=== PATIENT | female | born 1980 | race Caucasian/White ===

== ENCOUNTER 2018-09-03 19:29 | Emergency (ER) | payer OTHER ==
[2018-09-03 19:55] VITALS: RESP 20
[2018-09-03] MEDS ORDERED: IPRATROPIUM-ALBUTEROL 3 ML NEB INHALATION STA (20:36)
[2018-09-03] MEDS ORDERED: SODIUM CHLORIDE 0.9% 1,000 ML IV STA (20:36)
[2018-09-03 21:04] LABS: Anisocytosis Slight; Basophils # (A) 0.1 k/uL (0-0.2); Basophils % (A) 1 %; Eosinophils # (A) 0.3 k/uL (0-0.7); Eosinophils % (A) 3 %; HCT 40.1 % (34.0-46.0); HGB 12.3 gm/dL (11.4-16.0); Hypochromasia Moderate; Lymphocytes # (A) 2.1 k/uL (1.0-4.8); Lymphocytes % (A) 21 %; MCHC 30.7 g/dL (31.0-37.0); MCV 71.8 fL (80.0-100.0); Mean Platelet Volume 7.4; Microcytosis Moderate; Monocytes # (A) 0.6 k/uL (0-1.0); Monocytes % (A) 6 %; Neutrophils # (A) 6.6 k/uL (1.3-7.7); Neutrophils % (A) 68 %; Platelet Count 215 k/uL (150-450); RBC 5.58 m/uL (3.80-5.40); RDW 16.4 % (11.5-15.5); WBC 9.7 k/uL (3.8-10.6)
[2018-09-03 21:17] LABS: Albumin 4.5 g/dL (3.5-5.0); Calcium 9.6 mg/dL (8.4-10.2); Potassium 4.4 mmol/L (3.5-5.1); Total Bilirubin 0.8 mg/dL (0.2-1.3)
--- NOTE | 2018-09-03 21:42 | XR ---
EXAMINATION TYPE: XR chest 2V DATE OF EXAM: 09/03/2018 COMPARISON: NONE HISTORY: Cough TECHNIQUE: Frontal and lateral views of the chest are obtained. FINDINGS: Heart and mediastinum are normal. Lungs are clear of infiltrate. There is no heart failure . There is focal pleural reaction or thickening at the lateral right lung base. IMPRESSION: Mild pleural reaction at the lateral right lung base. Normal heart.
[2018-09-03 22:32] VITALS: BP 158/97; PULSE 89; TEMP 98.3
--- NOTE | 2018-09-03 22:35 | ED ---
General Adult HPI - General Chief complaint: Upper Respiratory Infection Stated complaint: Coughing and wheezing Source: patient, RN notes reviewed, old records reviewed Mode of arrival: ambulatory Limitations: no limitations - History of Present Illness Initial comments: 37-year-old female patient with past history of hypertension, pulmonary embolism approximate 9 years ago not currently on anticoagulation due to recommendation from heme/onc presents to ED with 4 days of nonproductive cough, sinus congestion. Patient does state that she has had some shortness of breath after coughing. States that this does not feel like when she had pulmonary embolism in past. Patient has not been previously evaluated for this problem. Patient denies other complaints. Patient denies chest pain, abdominal pain, nausea vomiting diarrhea, fever chills. Patient states that she is not and she is not sexually active. Systemic: Pt denies fatigue, myalgia, fever/chills, rash. Pt denies weakness, night sweats, weight loss. Neuro: Pt denies headache, visual disturbances, syncope or pre-syncope. HEENT: Pt denies ocular discharge or irritation, otalgia, rhinorrhea, pharyngitis or notable lymphadenopathy. Cardiopulmonary: Pt denies chest pain, heart palpitations, dyspnea on exertion. Abdominal/GI: Pt denies abdominal pain, n/v/d. : Pt denies dysuria, burning w/ urination, frequency/urgency. Denies new onset urinary or bowel incontinence. MSK: Pt denies myalgia, loss of strength or function in extremities. Neuro: Pt denies new onset weakness, paresthesias. - Related Data Home Medications Medication Instructions Recorded Confirmed Labetalol HCl [Trandate] 300 mg PO BID 09/03/18 09/03/18 Previous Rx's Medication Instructions Recorded Amoxicillin/Potassium Clav 1 each PO Q12HR #20 tab 09/03/18 [Augmentin 875-125 Tablet] Benzonatate [Tessalon Perles] 100 mg PO TID PRN #20 capsule 09/03/18 Fluticasone Propionate [Flonase 1 - 2 spray EA NOSTRIL DAILY 5 09/03/18 Allergy Relief] Days ml Allergies Allergy/AdvReac Type Severity Reaction Status Date / Time No Known Allergies Allergy Verified 09/03/18 19:55 Review of Systems ROS Statement: Those systems with pertinent positive or pertinent negative responses have been documented in the HPI. ROS Other: All systems not noted in ROS Statement are negative. Past Medical History Past Medical History: Hypertension, Pulmonary Embolus (PE) History of Any Multi-Drug Resistant Organisms: None Reported Past Surgical History: Section Past Psychological History: Bipolar, Depression Smoking Status: Current every day smoker Past Alcohol Use History: Rare Past Drug Use History: None Reported General Exam - General Exam Comments Initial Comments: Constitutional: NAD, AOX3, Pt has pleasant affect. HEENT: NC/AT, trachea midline, neck supple, no lymphadenopathy. Posterior pharynx non erythematous, without exudates. External ears appear normal, without discharge. Mucous membranes moist. Eyes PERRLA, EOM intact. There is no scleral icterus. No pallor noted. Cardiopulmonary: RRR, no murmurs, rubs or gallops, no JVD noted. Lungs CTAB in anterior and posterior knapp. No peripheral edema. Abdominal exam: Abdomen soft and non-distended. Abdomen non-tender to palpation in all 4 quadrants. Bowel sounds active in LLQ. No hepatosplenomegaly. No ecchymosis Neuro: CN II-XII grossly intact. No nuchal rigidity. MSK: No posterior calf tenderness bilaterally, homans sign negative bilaterally. Posterior tibialis and radial pulse +2 bilaterally. Sensation intact in upper and lower extremities. Full active ROM in upper and lower extremities, 5/5 stregnth. Limitations: no limitations Course Vital Signs 09/03/18 09/03/18 09/03/18 19:51 20:52 21:08 Temperature 98.1 F Pulse Rate 97 88 92 Respiratory 20 20 Rate Blood Pressure 162/115 158/90 O2 Sat by Pulse 98 99 Oximetry 09/03/18 22:31 Temperature 98.3 F Pulse Rate 89 Respiratory 20 Rate Blood Pressure 158/97 O2 Sat by Pulse 100 Oximetry Medical Decision Making - Medical Decision Making 37-year-old female patient with past history of hypertension, pulmonary embolism approximate 9 years ago not currently on anticoagulation due to recommendation from heme/onc presents to ED with 4 days of nonproductive cough, sinus congestion. Patient does state that she has had some shortness of breath after coughing. Pt denies all other complaints. Pt VSS, afebrile. Physical exam did not display acute pathology. Chest x-ray revealed mild pleuritic reaction at lateral right lung base. Normal heart. No infiltrate or consolidation. Laboratory investigations revealed non-impressive CBC. D-dimer negative. CMP revealed mildly elevated creatinine. These results were explained to patient at length. Patient verbalized understanding. Patient to be treated with Augmentin for sinusitis. Patient to follow up with PCP in 1-2 days for continued evaluation and monitoring of kidney function. Patient to return to ED if new signs symptoms develop or condition worsens in any way. Case discussed at length with Dr. Chen. - Lab Data Result diagrams: 09/03/18 20:45 09/03/18 20:45 Lab Results 09/03/18 09/03/18 09/03/18 Range/Units 20:45 20:45 20:45 WBC 9.7 (3.8-10.6) k/uL RBC 5.58 H (3.80-5.40) m/uL Hgb 12.3 (11.4-16.0) gm/dL Hct 40.1 (34.0-46.0) % MCV 71.8 L (80.0-100.0) fL MCH 22.0 L (25.0-35.0) pg MCHC 30.7 L (31.0-37.0) g/dL RDW 16.4 H (11.5-15.5) % Plt Count 215 (150-450) k/uL Neutrophils % 68 % Lymphocytes % 21 % Monocytes % 6 % Eosinophils % 3 % Basophils % 1 % Neutrophils # 6.6 (1.3-7.7) k/uL Lymphocytes # 2.1 (1.0-4.8) k/uL Monocytes # 0.6 (0-1.0) k/uL Eosinophils # 0.3 (0-0.7) k/uL Basophils # 0.1 (0-0.2) k/uL Hypochromasia Moderate Anisocytosis Slight Microcytosis Moderate D-Dimer 0.47 (<0.60) mg/L FEU Sodium 139 (137-145) mmol/L Potassium 4.4 (3.5-5.1) mmol/L Chloride 105 (98-107) mmol/L Carbon Dioxide 27 (22-30) mmol/L Anion Gap 7 mmol/L BUN 12 (7-17) mg/dL Creatinine 1.19 H (0.52-1.04) mg/dL Est GFR (CKD-EPI)AfAm 68 (>60 ml/min/1.73 sqM) Est GFR (CKD-EPI)NonAf 59 (>60 ml/min/1.73 sqM) Glucose 84 (74-99) mg/dL Calcium 9.6 (8.4-10.2) mg/dL Total Bilirubin 0.8 (0.2-1.3) mg/dL AST 17 (14-36) U/L ALT 29 (9-52) U/L Alkaline Phosphatase 66 (38-126) U/L Total Protein 8.0 (6.3-8.2) g/dL Albumin 4.5 (3.5-5.0) g/dL Disposition Clinical Impression: Acute sinusitis Disposition: HOME SELF-CARE Condition: Stable Instructions: Sinusitis (ED) Additional Instructions: Patient to adhere to previously discussed treatment plan and will take medication(s) as directed. Patient to follow up with PCP in 1-2 days. Patient to return to ED if symptoms do not improve. Prescriptions: Amoxicillin/Potassium Clav [Augmentin 875-125 Tablet] 1 each PO Q12HR #20 tab Benzonatate [Tessalon Perles] 100 mg PO TID PRN #20 capsule PRN Reason: Cough Fluticasone Propionate [Flonase Allergy Relief] 1 - 2 spray EA NOSTRIL DAILY 5 Days ml Is patient prescribed a controlled substance at d/c from ED?: No Referrals: None,Stated [[facility] Care Provider[facility] Time of Disposition: 22:34
== END 2018-09-03 22:39 | disposition home or self-care (01) ==
LOC: EC 19:29
DX: J01.90 Acute sinusitis, unspecified (principal); R79.89 Other specified abnormal findings of blood chemistry; R91.8 Other nonspecific abnormal finding of lung field; R06.02 Shortness of breath; I10 Essential (primary) hypertension; F17.200 Nicotine dependence, unspecified, uncomplicated; Z86.711 Personal history of pulmonary embolism; Z79.899 Other long term (current) drug therapy
CPT/HCPCS: 36415; 71046; 80053; 85025; 85379; 94640; 96360; 99284

== ENCOUNTER → 2019-01-22 | Outpatient (CLI) | payer OTHER ==
[2019-01-22 18:40] LABS: Cardiolipin Ab IgG Interp NEGATIVE (NEGATIVE); Cardiolipin Ab IgM Interp NEGATIVE (NEGATIVE); Cardiolipin IgM Antibody 0.7 U/mL; Cyclic Citrullinated Pep IgG NEGATIVE (NEGATIVE); DNA Double-Stranded NEGATIVE (NEGATIVE); RNP 0.6 AI; Scleroderma SC-70 Ab <0.2 AI
[2019-01-23 11:23] LABS: Anti-Thrombin III Antigen 115 % (80 - 120); Free Protein S Antigen 73 % (50 - 147)
[2019-01-23 11:25] LABS: Anti-Thrombin III Activity 116 % (79-109)
[2019-01-23 12:12] LABS: Protein C (Activity) 83 % (71-138)
[2019-01-23 12:42] LABS: APTT 36 Sec(s) (<43); Dilute Russell Viper Venom 38 Sec(s) (<44)
[2019-01-23 13:09] LABS: Protein C Antigen 102 % (72-160)
[2019-01-23 13:13] LABS: Histone Antibody 0.2 UNITS (<1.0)
== END | disposition home or self-care (01) ==
LOC: LABWHC1 09:54
PROVIDERS: ATTEND Psychiatry & Neurology Pain Medicine
DX: I63.9 Cerebral infarction, unspecified (principal)
CPT/HCPCS: 36415; 81240; 81241; 81291; 83090; 83516; 85300; 85301; 85302; 85303; 85306; 85384; 85613; 85652; 85730; 86038; 86140; 86147; 86200; 86225; 86235

== ENCOUNTER → 2019-04-28 | Outpatient (CLI) | payer OTHER ==
--- NOTE | 2019-04-28 10:40 | US ---
EXAMINATION TYPE: US venous doppler duplex LE LT DATE OF EXAM: 04/28/2019 10:20 AM COMPARISON: NONE CLINICAL HISTORY: M79.662 pain in lower left limb. redness and pain at site of varicose vein in left calf, h/o SVT, h/o PE's years ago, no h/o DVT SIDE PERFORMED: Left TECHNIQUE: The lower extremity deep venous system is examined utilizing real time linear array sonog uzma with graded compression, doppler sonography and color-flow sonography. VESSELS IMAGED: External Iliac Vein (EIV) Common Femoral Vein Deep Femoral Vein Greater Saphenous Vein * Femoral Vein Popliteal Vein Small Saphenous Vein * Proximal Calf Veins (* superficial vessels) Left Leg: Appears negative for DVT, internal echoes that did not compress or have blood flow withi n varicose vein along patients calf. Superficial venous thrombosis appears acute. Tech impression given to Dr Carney IMPRESSION: No sonographic evidence of deep venous thrombosis, however there appears to be superfici al venous thrombosis within a varicose vein of the left lower extremity.
== END | disposition home or self-care (01) ==
LOC: RADUSWWP 09:39
PROVIDERS: ATTEND Family Medicine
DX: I82.492 Acute embolism and thrombosis of other specified deep vein of left lower extremity (principal)

== ENCOUNTER → 2019-11-04 | Day surgery (SDC) | payer OTHER ==
[2019-11-02 13:10] VITALS: BMI 45.4
[~2019-11-04] MED LIST: BUPIVACAIN-EPI 0.25%-1:200,000 30 ML VIAL SQ ONE; DEXAMETHASONE SOD PHOSPHATE 10 MG/ML 1 ML VIAL IV ONE; GLYCOPYRROLATE 0.2 MG/ML 2 ML VIAL ONE; HEPARIN SODIUM,PORCINE 5,000 UNIT/ML 1 ML VIAL SQ ONE; HYDROcodone/APAP 5-325MG 1 EACH TAB PO ONE; KETAMINE 10 MG/ML 20 ML VIAL ONE; KETOROLAC 30 MG/ML 1 ML VIAL ONE; LACTATED RINGERS 1,000 ML IV ONE; LACTATED RINGERS 1,000 ML IV SCH; LIDOCAINE 1% (10MG/ML) FOR IV START INTRADERMA PRN; LIDOCAINE 1% INJ 10MG/ML (20 ML MDV) ONE; MIDAZOLAM 2 MG/2 ML VIAL ONE; NEOSTIGMINE 1 MG/ML 10 ML VIAL ONE; ONDANSETRON 4 MG/2 ML VIAL IVP ONE; PROPOFOL 10 MG/ML 20 ML VIAL IV ONE; ROCURONIUM BROMIDE 10 MG/ML 5 ML VIAL IV ONE; SUCCINYLCHOLINE CHLORIDE 100 MG/5 ML SYR IV ONE; ceFAZolin 3 GM in SODIUM CHLORIDE 0.9% 100 ML IVPB ONE; fentaNYL (PF) 50 MCG/ML 2 ML AMP ONE
--- NOTE | 2019-11-04 08:03 | P.GSHP ---
History of Present Illness H&P Date: 11/04/19 Chief Complaint: Right upper quadrant pain This is a 38-year-old female who presents today for laparoscopic cholestatic. Patient's had complaints of right quadrant pain. Past Medical History Past Medical History: Deep Vein Thrombosis (DVT), Hypertension, Pulmonary Embolus (PE), Thyroid Disorder Additional Past Medical History / Comment(s): GALLBLADDER DYSFUNCTION, HX DVT'S History of Any Multi-Drug Resistant Organisms: None Reported Past Surgical History: Section Additional Past Surgical History / Comment(s): C-SEC X 2 Past Anesthesia/Blood Transfusion Reactions: No Reported Reaction Smoking Status: Current every day smoker - Past Family History Mother Family Medical History: No Reported History Medications and Allergies Home Medications Medication Instructions Recorded Confirmed Type Fluticasone Propionate [Flonase 1 - 2 spray EA NOSTRIL DAILY 5 09/03/18 11/04/19 Rx Allergy Relief] Days ml Labetalol HCl [Trandate] 300 mg PO BID 09/03/18 11/04/19 History Apixaban [Eliquis] 5 mg PO BID 11/02/19 11/04/19 History Levothyroxine Sodium 100 mcg PO DAILY 11/02/19 11/04/19 History amLODIPine [Norvasc] 5 mg PO DAILY 11/02/19 11/04/19 History Enoxaparin Sodium [Lovenox] 11/04/19 History Allergies Allergy/AdvReac Type Severity Reaction Status Date / Time No Known Allergies Allergy Verified 11/04/19 07:19 Surgical - Exam Vital Signs Temp Pulse Resp BP Pulse Ox 97.6 F 86 18 121/74 97 11/04/19 07:20 11/04/19 07:20 11/04/19 07:20 11/04/19 07:20 11/04/19 07:20 - General well developed, well nourished, no distress - Eyes PERRL - ENT normal pinna - Neck no masses - Respiratory normal expansion - Cardiovascular Rhythm: regular - Abdomen Abdomen: soft, non tender Assessment and Plan Assessment: Right upper quadrant pain Cholelithiasis We'll perform laparoscopic cholecystectomy.
[2019-11-04 09:08] VITALS: TEMP 97.3
[2019-11-04] MEDS: HYDROmorphone 0.5 MG/0.5 ML SYRINGE IVP PRN ×4 (09:09→09:26)
--- NOTE | 2019-11-04 09:28 | P.OP ---
Date of Procedure: 11/04/19 Preoperative Diagnosis: Cholelithiasis Cholecystitis Postoperative Diagnosis: Cholelithiasis : Cholecystitis Procedure(s) Performed: Laparoscopic cholecystectomy Anesthesia: DIMA Surgeon: Du Reyes Estimated Blood Loss (ml): 5 Pathology: other (Gallbladder) Condition: stable Disposition: PACU Description of Procedure: The patient was placed on the operating table. The patient received a general endotracheal tube anesthesia. The patients abdomen was prepped and draped in the usual sterile fashion. Through an infraumbilical stab incision, the fascia of the anterior abdominal wall was grasped with a pair of Kochers and then the Veress needle was placed in the peritoneal cavity. Position of the Veress needle was confirmed with positive drop test. The abdomen was then insufflated. After adequate insufflation, the 10 mm trocar was placed in the pe ritoneal cavity. Following this the laparoscope was placed in the peritoneal cavity. The patient was placed in the head-up, right side up position and then a 5 mm trocar was placed in the right lateral and right subcostal position under direct visualization. A 8 mm trocar was placed in the epigastric position. The gallbladder was grasped in the fundus and infundibulum. Traction on the gallbladder was placed in the lateral and the cephalad positions. The triangle of Calot was visualized.. The cystic duct was bluntly dissected until the union of the cystic duct and common bile duct was seen. A critical view of safety was achieved. The cystic duct was then divided and sealed with the Harmonic scissors. A PDS Endoloop was then placed throughout the cystic duct stump. The cystic artery divided and sealed with the Harmonic scissors. The gallbladder was then removed from the liver bed using Harmonic scissors. The gallbladder was then extracted through the epigastric port site. Operative field was checked for any bleeding spots and Harmonic scissors was used to coagulate the liver bed. The abdomen was irrigated. The trocars were removed. The skin was closed using interrupted 3-0 Vicryl suture. Dermabond dressing were applied. The patient tolerated the procedure well.
[2019-11-04 09:35] VITALS: RESP 16
[2019-11-04 10:52] VITALS: BP 109/59; PULSE 80
== END | disposition home or self-care (01) ==
LOC: OR 06:37
PROVIDERS: ATTEND Surgery
DX: K80.10 Calculus of gallbladder with chronic cholecystitis without obstruction (principal); I10 Essential (primary) hypertension; F17.210 Nicotine dependence, cigarettes, uncomplicated; E07.9 Disorder of thyroid, unspecified; Z79.01 Long term (current) use of anticoagulants; Z79.890 Hormone replacement therapy; Z79.899 Other long term (current) drug therapy; Z98.890 Other specified postprocedural states; Z86.718 Personal history of other venous thrombosis and embolism; Z86.711 Personal history of pulmonary embolism
CPT/HCPCS: 81025; 88304; 47562; J2250; J1644; J1100; J2710; J0690; J2405; J2001; J3010; J1885; J0330; J2704; J1170

== ENCOUNTER 2019-11-05 13:53 | Inpatient (IN) | payer OTHER ==
[2019-11-05 15:43] LABS: Anisocytosis Slight; Basophils % (A) 1 %; Eosinophils # (A) 0.1 k/uL (0-0.7); Eosinophils % (A) 2 %; HCT 35.9 % (34.0-46.0); HGB 10.9 gm/dL (11.4-16.0); Hypochromasia Marked; Lymphocytes # (A) 1.5 k/uL (1.0-4.8); Lymphocytes % (A) 27 %; MCH 22.6 pg (25.0-35.0); MCHC 30.4 g/dL (31.0-37.0); MCV 74.2 fL (80.0-100.0); Mean Platelet Volume 8.8; Microcytosis Slight; Monocytes # (A) 0.3 k/uL (0-1.0); Monocytes % (A) 5 %; Neutrophils # (A) 3.5 k/uL (1.3-7.7); Neutrophils % (A) 64 %; Platelet Count 181 k/uL (150-450); RBC 4.83 m/uL (3.80-5.40); RDW 16.1 % (11.5-15.5); WBC 5.5 k/uL (3.8-10.6)
[2019-11-05 15:49] LABS: Calcium 8.4 mg/dL (8.4-10.2); Potassium 4.1 mmol/L (3.5-5.1)
[2019-11-05] MEDS ORDERED: traMADol 50 MG TAB PO PRN (16:13)
[2019-11-05] MEDS: HYDROcodone/APAP 5-325MG 1 EACH TAB PO PRN (17:46)
[2019-11-05] MEDS: methylPREDNISolone SOD SUCCI 40 MG/ML 1 ML VIAL IV SCH (18:57)
[2019-11-05] MEDS: INSULIN ASPART (NovoLOG) 100 UNIT/ML VIAL SQ SCH ×2 (18:58→21:00)
[2019-11-05 20:15] LABS: Glucose,Whole Blood 122 mg/dL (75-99)
[2019-11-05] MEDS: APIXABAN 5 MG TAB PO SCH (21:00)
[2019-11-05] MEDS: LABETALOL 100 MG TAB PO SCH (21:00)
[2019-11-05] MEDS: DOCUSATE 100 MG CAP PO SCH (21:00)
[2019-11-05] MEDS: clonazePAM 0.5 MG TAB PO PRN (21:02)
[2019-11-05] MEDS ORDERED: NYSTAT-TRIAMCIN 100,000-0.1 UNIT/GM-% CREAM 30 GM TUBE TOPICAL SCH (22:30)
--- NOTE | 2019-11-06 00:06 | P.CONS ---
History of Present Illness - Reason for Consult Consult date: 11/05/19 left leg cellulitis Requesting physician: Mikel Carney - Chief Complaint left posterior leg redness x few days - History of Present Illness Patient is a 38-year female admitted directly to the hospital from the PCP office with concern for left lower extremity cellulitis patient mentioning she develop an erythematous rash to the left posterior leg about a week ago and has been treated with oral Keflex patient mention she did have some improvement with oral Keflex however after antibiotic ran out of she noticed the swelling and redness coming back is mostly limited to her left posterior leg area patient been complaining of some itching associated with it but no significant burning or dull aching pain currently with no blisters or any open wound or drainage, the patient denies having any fever or any chills patient has been sent to the hospital for IV antibiotic therapy she was started on cefazolin 1 g every 8 hourly infectious disease was consulted for further recommendation about antibiotic therapy. Review of Systems Positive point has been mentioned in HPI rest of the systems are negative Past Medical History Past Medical History: CVA/TIA, Deep Vein Thrombosis (DVT), GERD/Reflux, GI Bleed, Hypertension, Pneumonia, Pulmonary Embolus (PE), Renal Disease, Thyroid Disorder Additional Past Medical History / Comment(s): Pt states she was just treated w ith antibiotics for L lower leg cellulitis and stated it was gone morning of 11/04/19 then last night she noticed it was back and looked worse to her. Other hx: Bilateral PEs, DVT-pt thinks bilaterally, TIA, pt is currently being worked up for lupus, CKD stage II-R kidney atrophy, bronchitis, stomach ulcer, upper and lower GI bleeds, diverticular disease, palpitations, hypothyroid. History of Any Multi-Drug Resistant Organisms: None Reported Past Surgical History: Section, Cholecystectomy Additional Past Surgical History / Comment(s): 11/04/19 lap sharyn, EGD, colonoscopy, C-SEC X 2, sinus surgery, D&C Past Anesthesia/Blood Transfusion Reactions: No Reported Reaction Smoking Status: Current every day smoker - Past Family History Mother Family Medical History: No Reported History Additional Family Medical History / Comment(s): Mother is healthy Father Family Medical History: COPD, Coronary Artery Disease (CAD) Additional Family Medical History / Comment(s): Father was born with polio. He has had CABG Medications and Allergies Home Medications Medication Instructions Recorded Confirmed Type Fluticasone Propionate [Flonase 1 - 2 spray EA NOSTRIL DAILY 5 09/03/18 11/05/19 Rx Allergy Relief] Days ml Labetalol HCl [Trandate] 300 mg PO BID 09/03/18 11/05/19 History Apixaban [Eliquis] 5 mg PO BID 11/02/19 11/05/19 History Levothyroxine Sodium 100 mcg PO DAILY 11/02/19 11/05/19 History amLODIPine [Norvasc] 5 mg PO DAILY 11/02/19 11/05/19 History Docusate [Colace] 100 mg PO BID #20 capsule 11/04/19 11/05/19 Rx HYDROcodone/APAP 5-325MG [[place] 1 tab PO Q6HR PRN #10 tab 11/04/19 11/05/19 Rx 5-325] Phentermine HCl 37.5 mg PO DAILY 11/05/19 11/05/19 History Spironolactone 50 mg PO DAILY 11/05/19 11/05/19 History clonazePAM 0.25 mg PO DAILY PRN 11/05/19 11/05/19 History traMADol HCL [Ultram] 50 mg PO QID PRN 11/05/19 11/05/19 History Allergies Allergy/AdvReac Type Severity Reaction Status Date / Time No Known Allergies Allergy Verified 11/04/19 07:19 Physical Exam Vitals: Vital Signs Temp Pulse Resp BP Pulse Ox 11/05/19 22:04 18 11/05/19 21:00 96.8 F L 80 18 150/97 99 11/05/19 14:34 97.1 F L 80 18 138/92 98 Intake and Output 11/05/19 11/05/19 11/05/19 06:59 14:59 22:59 Intake Total 450 Balance 450 Intake: Oral 450 Other: # Voids 1 Weight 134.5 kg GENERAL DESCRIPTION: Middle-aged female lying in bed, no distress. No tachypnea or accessory muscle of respiration use. HEENT: Shows Pallor , no scleral icterus. Oral mucous membrane is dry. NECK: Trachea central, no thyromegaly. LUNGS: Unlabored breathing. Clear to auscultation anteriorly. No wheeze or crackle. HEART: S1, S2, regular rate and rhythm. ABDOMEN: Soft, no tenderness , guarding or rigidity EXTREMITIES: No edema of feet. Left posterior leg did have a erythematous rash slightly warm to touch no induration or any drainage SKIN: No rash, no masses palpable. NEUROLOGICAL: The patient is awake, alert, oriented x3, mood and affect normal. Results CBC & Chem 7: 11/05/19 15:28 11/05/19 15:28 Labs: Abnormal Lab Results - Last 24 Hours (Table) 11/05/19 11/05/19 Range/Units 15:28 20:13 Hgb 10.9 L (11.4-16.0) gm/dL MCV 74.2 L (80.0-100.0) fL MCH 22.6 L (25.0-35.0) pg MCHC 30.4 L (31.0-37.0) g/dL RDW 16.1 H (11.5-15.5) % POC Glucose (mg/dL) 122 H (75-99) mg/dL Assessment and Plan Assessment: patient with left posterior leg erythematous rash in this patient main symptom has been itching with a concern for possible contact dermatitis versus cellulitis likely from gram-positive skin kiya clinically doubt MRSA or gram- negative infection (1) Left leg cellulitis Current Visit: Yes Status: Acute Code(s): L03.116 - CELLULITIS OF LEFT LOWER LIMB SNOMED Code(s): 531625280 Plan: 1-marked the area of the redness 2-Mycolog cream to the left posterior leg twice daily 3-cefazolin dose adjusted up to 2 g every 8 hourly We will follow on clinical condition and cultures to further adjust medication if needed Thank you for this consultation we will follow the patient along with you Time with Patient: Greater than 30
[2019-11-06] MEDS: methylPREDNISolone SOD SUCCI 40 MG/ML 1 ML VIAL IV SCH ×4 (00:31→22:56)
[2019-11-06] MEDS: NYSTATIN 100,000UNIT/GM CREAM 30 GM TUBE TOPICAL SCH ×3 (00:46→21:44)
[2019-11-06] MEDS: HYDROcodone/APAP 5-325MG 1 EACH TAB PO PRN ×3 (00:46→16:41)
[2019-11-06] MEDS: TRIAMCINOLONE 0.1% CREAM 80 GM TUBE TOPICAL SCH ×3 (00:46→21:44)
[2019-11-06] MEDS: LEVOTHYROXINE 100 MCG TAB PO SCH (05:02)
[2019-11-06 07:14] LABS: Glucose,Whole Blood 161 mg/dL (75-99)
[2019-11-06] MEDS: amLODIPine 5 MG TAB PO SCH (08:08)
[2019-11-06] MEDS: SPIRONOLACTONE 25 MG TAB PO SCH (08:08)
[2019-11-06] MEDS: LABETALOL 100 MG TAB PO SCH ×2 (08:09→21:43)
[2019-11-06] MEDS: DOCUSATE 100 MG CAP PO SCH ×2 (08:09→21:43)
[2019-11-06] MEDS: APIXABAN 5 MG TAB PO SCH ×2 (08:09→21:55)
[2019-11-06] MEDS: INSULIN ASPART (NovoLOG) 100 UNIT/ML VIAL SQ SCH ×4 (08:09→21:44)
[2019-11-06] MEDS: Phentermine Hcl 37.5 MG PO SCH (08:34)
[2019-11-06] MEDS: FLUTICASONE 50MCG/SPRAY NASAL 16GM EA NOSTRIL SCH (08:35)
[2019-11-06 11:42] LABS: Glucose,Whole Blood 164 mg/dL (75-99)
--- NOTE | 2019-11-06 13:47 | HP ---
HISTORY AND PHYSICAL This is a 38-year-old female who came in with severe cellulitis of her right lower extremity, failing outpatient treatment with Keflex and increased swelling in the left lower leg with some itching and burning, no aching. This has been recurrent over the past few months. She has possible autoimmune disease. She was started on cefazolin through IV antibiotics. REVIEW OF SYSTEMS: Fourteen-point review of systems positive for shortness of breath, smoking, obesity, chronic fatigue, history of GERD, DVT, CVA, TIA, GI bleed, hypertension, pulmonary embolism, renal disease, hypothyroidism, lupus possibly, diverticulosis. SURGERIES: , cholecystectomy. FAMILY HISTORY: Mother negative. Father coronary artery disease, COPD. HOME MEDICINES: See list. PHYSICAL EXAMINATION: Temp 98.7, pulse 80, respiratory rate 16 to 18, blood pressure is 130 to 150 over 92 to 97, O2 98 on room air. Middle-aged female, obese. No tachypnea. HEENT: Neck is supple. No mass. LUNGS: Unlabored breathing. No rales or rhonchi. HEART: S1, S2. ABDOMEN: Distended, obesity. EXTREMITIES: No generalized edema. Erythematous rash with redness over the left inner leg. x6 inches wide. She is alert and oriented x3 ASSESSMENT: 1. She has cellulitis versus contact dermatitis. 2. History of peripheral arterial disease. 3. Nicotine addiction. 4. Mood disorder. 5. Acute on chronic anemia. Mycolog cream given twice a day. Cefazolin is increased to 2 q.8 hours. Please see further orders. MMODL / IJN: [id number] /
--- NOTE | 2019-11-06 16:52 | PN ---
PROGRESS NOTE DATE OF SERVICE: 11/06/2019 REASON FOR FOLLOW UP: Left lower leg cellulitis. INTERVAL HISTORY: Patient is currently afebrile. She has been breathing comfortably. Denies any chest pain or any cough. No nausea or vomiting or abdominal pain or pain to the left posterior leg area. On examination, blood pressure 143/84 with a pulse of 82. Temperature 97.4. She is 94% on room air. General description is a middle aged female lying in bed in no distress. Respiratory system: Unlabored breathing, clear to auscultation anteriorly. Heart S1, S2 regular rate and rhythm. Abdomen soft, no tenderness. Left leg swelling and redness has decreased. DIAGNOSTIC IMPRESSION AND PLAN: Patient with left lower extremity cellulitis. Patient clinically responded to the Mycolog cream and Cefazolin to continue. We will reevaluate the patient tomorrow. If overall clinical improvement, oral antibiotics and local care. Continue supportive care. MMODL / IJN: [id number] /
[2019-11-06 17:22] LABS: Glucose,Whole Blood 122 mg/dL (75-99)
[2019-11-06 19:44] VITALS: RESP 20
[2019-11-06 21:40] LABS: Glucose,Whole Blood 172 mg/dL (75-99)
[2019-11-06] MEDS: clonazePAM 0.5 MG TAB PO PRN (22:56)
[2019-11-07 06:24] LABS: Glucose,Whole Blood 164 mg/dL (75-99)
[2019-11-07] MEDS: LEVOTHYROXINE 100 MCG TAB PO SCH (06:31)
[2019-11-07] MEDS: INSULIN ASPART (NovoLOG) 100 UNIT/ML VIAL SQ SCH ×2 (06:31→12:37)
[2019-11-07] MEDS: TRIAMCINOLONE 0.1% CREAM 80 GM TUBE TOPICAL SCH (08:27)
[2019-11-07] MEDS: NYSTATIN 100,000UNIT/GM CREAM 30 GM TUBE TOPICAL SCH (08:27)
[2019-11-07] MEDS: methylPREDNISolone SOD SUCCI 40 MG/ML 1 ML VIAL IV SCH (08:33)
[2019-11-07] MEDS: DOCUSATE 100 MG CAP PO SCH (08:36)
[2019-11-07] MEDS: LABETALOL 100 MG TAB PO SCH (08:37)
[2019-11-07] MEDS: amLODIPine 5 MG TAB PO SCH (08:38)
[2019-11-07] MEDS: APIXABAN 5 MG TAB PO SCH (08:39)
[2019-11-07] MEDS: SPIRONOLACTONE 25 MG TAB PO SCH (08:40)
[2019-11-07] MEDS: FLUTICASONE 50MCG/SPRAY NASAL 16GM EA NOSTRIL SCH (08:41)
[2019-11-07] MEDS: Phentermine Hcl 37.5 MG PO SCH (08:42)
[2019-11-07 12:05] LABS: Glucose,Whole Blood 125 mg/dL (75-99)
[2019-11-07 12:16] VITALS: BP 147/94; PULSE 84; TEMP 97.9
== END 2019-11-07 13:19 | disposition home or self-care (01) | DRG 603 ==
LOC: 6NMEDSUR 14:11 → 6PED 11-06 16:21
PROVIDERS: ADMIT Family Medicine; ATTEND Family Medicine
DX: L03.116 Cellulitis of left lower limb (principal); Z68.42 Body mass index [BMI] 45.0-49.9, adult; I73.9 Peripheral vascular disease, unspecified; D64.9 Anemia, unspecified; F17.200 Nicotine dependence, unspecified, uncomplicated; F39 Unspecified mood [affective] disorder; K21.9 Gastro-esophageal reflux disease without esophagitis; E03.9 Hypothyroidism, unspecified; I12.9 Hypertensive chronic kidney disease with stage 1 through stage 4 chronic kidney disease, or unspecified chronic kidney disease; N18.2 Chronic kidney disease, stage 2 (mild); K57.90 Diverticulosis of intestine, part unspecified, without perforation or abscess without bleeding; R53.82 Chronic fatigue, unspecified; E66.9 Obesity, unspecified; Z79.01 Long term (current) use of anticoagulants; Z79.890 Hormone replacement therapy; Z79.899 Other long term (current) drug therapy; Z86.73 Personal history of transient ischemic attack (TIA), and cerebral infarction without residual deficits; Z86.711 Personal history of pulmonary embolism; Z86.718 Personal history of other venous thrombosis and embolism; Z87.11 Personal history of peptic ulcer disease; Z90.49 Acquired absence of other specified parts of digestive tract; Z82.49 Family history of ischemic heart disease and other diseases of the circulatory system; Z82.5 Family history of asthma and other chronic lower respiratory diseases
CPT/HCPCS: 80048; 85025

== ENCOUNTER → 2020-01-07 | Outpatient (CLI) | payer OTHER ==
--- NOTE | 2020-01-13 13:40 | P.ARTDOP ---
Arterial Doppler LOWER EXTREMITY ARTERIAL DOPPLER: DATE OF SERVICE: 01/07/2020 Reason for study: Cellulitis. Doppler waveforms: Multiphasic bilaterally throughout. Pulse volume recording: []. Pressure gradients: Gradient at the ankle level but normal with good waveforms at the toe. Ankle-brachial indices: 0.87 on the right and 0.80 on the left. Toe brachial indices: 0.79 on the right, 0.87 on the left Impression: Waveforms and toe pressures suggests normal circulatory status. Low ankle pressures in the range of mild occlusive disease but given the normal toe pressures perfusion is essentially normal..
== END | disposition home or self-care (01) ==
LOC: RADUSWWP 09:37
PROVIDERS: ATTEND Family Medicine
DX: I70.213 Atherosclerosis of native arteries of extremities with intermittent claudication, bilateral legs (principal)
CPT/HCPCS: 93923

== ENCOUNTER → 2020-04-28 | Outpatient (CLI) | payer OTHER | END | disposition home or self-care (01) | LOC: LABWHC1 12:33 | PROVIDERS: ATTEND Family Medicine | DX: Z01.818 Encounter for other preprocedural examination (principal) | CPT/HCPCS: 36415; 93005 ==

== ENCOUNTER 2020-05-09 07:08 | Day surgery (SDC) | payer OTHER ==
[2020-05-05 10:11] VITALS: BMI 43.2
--- NOTE | 2020-05-08 17:01 | HP ---
HISTORY AND PHYSICAL REASON FOR ADMISSION: Surgery tomorrow Saturday, May 09, 2020 CHIEF COMPLAINT: Heavy menstrual periods. HISTORY OF PRESENT ILLNESS: This is a 39-year-old 4, para 2-0-3-2 non patient who presents for evaluation of heavy menstrual cycles to the office. Patient states her periods have been worsening over the last 2 years. She states her menstrual flow has been intermittently heavy over the last 6 months. She notes her menstrual cycles to be irregular in nature, heavy with clots. Past medical history significant for PE and DVT for which she is on Eliquis. The patient did have a pelvic ultrasound which revealed a normal sized uterus and normal ovaries bilaterally. PAST MEDICAL HISTORY: Past medical history significant for: 1. Anemia. 2. Anxiety. 3. Arthritis. 4. Depression. 5. Hypertension. 6. Thyroid disease. 7. As stated above PE/DVT on Eliquis. PAST SURGICAL HISTORY: Significant for: 1. section. 2. Cholecystectomy. 3. D and C. 4. Sinus surgery. MEDICATIONS: She is on amlodipine 5 mg daily. Buspirone 5 mg daily. Eliquis 5 mg twice daily. Furosemide 20 mg once daily. Labetalol 300 mg once daily. Lamotrigine 25 mg 2 tablets orally twice daily. Spironolactone 50 mg 1 tablet daily. Synthroid 125 mcg once daily. ALLERGIES: No known drug allergies. 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 She is a 4, para 2-0-3-2, non patient. SOCIAL HISTORY: She is a current smoker, but denies drug use and notes moderate alcohol use. REVIEW OF SYSTEMS: She denies night sweats or loss of appetite. She denies chest pain or irregular heart rate. She denies nausea, vomiting, diarrhea, or constipation. She denies urinary urgency or frequency but does admit to regular frequent menstrual cycles with menorrhagia symptoms. PHYSICAL EXAM: Vital signs are noted to be stable. In general, this is a well-nourished, well- developed female in no acute distress, breathing is noted to be nonlabored, heart has regular rate and rhythm. ABDOMEN: Soft and nontender. Genitourinary exam: External genitalia is noted to be normal for age, the vaginal mucosa is pink and well rugated, the cervix is without lesion and nontender. Uterus is noted to be normal and midline, there are no adnexal masses appreciated. ASSESSMENT: Heavy menstrual cycles. PLAN: Options were reviewed for treatment of heavy menstrual bleeding. Given that she has a history of PE and DVT, she is not a candidate for hormonal contraception. Discussed endometrial ablation with tubal ligation. She is desirous of a tubal ligation. Surgery is reviewed including hysteroscopy, dilation and curettage with subsequent endometrial ablation, NovaSure. Patient is understanding the need for tubal ligation secondary to the aforementioned procedure. Risks of surgery reviewed including, but not limited to infection, bleeding, damage to bladder, uterine perforation, or failed procedure. Multiple questions were answered. Patient stated understanding of procedure, the patient subsequently went to Dr. Carney for medical clearance and management of her Eliquis in addition. She was subsequently cleared for surgery by Dr. Carney. MMODL / IJN: [id number] /
[~2020-05-09 07:08] MED LIST changes: -BUPIVACAIN-EPI 0.25%-1:200,000 30 ML VIAL SQ ONE; -GLYCOPYRROLATE 0.2 MG/ML 2 ML VIAL ONE; -HEPARIN SODIUM,PORCINE 5,000 UNIT/ML 1 ML VIAL SQ ONE; -HYDROcodone/APAP 5-325MG 1 EACH TAB PO ONE; -KETAMINE 10 MG/ML 20 ML VIAL ONE; -KETOROLAC 30 MG/ML 1 ML VIAL ONE; -LACTATED RINGERS 1,000 ML IV ONE; -LIDOCAINE 1% (10MG/ML) FOR IV START INTRADERMA PRN; -LIDOCAINE 1% INJ 10MG/ML (20 ML MDV) ONE; -MIDAZOLAM 2 MG/2 ML VIAL ONE; -NEOSTIGMINE 1 MG/ML 10 ML VIAL ONE; -PROPOFOL 10 MG/ML 20 ML VIAL IV ONE; +Pre Op ABX Message 1 EACH MISC MISCELLANE ONE; -ROCURONIUM BROMIDE 10 MG/ML 5 ML VIAL IV ONE; +SCOPOLAMINE 1.5MG/72HR PATCH TRANSDERM ONE; -SUCCINYLCHOLINE CHLORIDE 100 MG/5 ML SYR IV ONE; -ceFAZolin 3 GM in SODIUM CHLORIDE 0.9% 100 ML IVPB ONE; -fentaNYL (PF) 50 MCG/ML 2 ML AMP ONE
[2020-05-09 08:02] VITALS: RESP 16; TEMP 98
[2020-05-09] MEDS ORDERED: fentaNYL (PF) 50 MCG/ML 2 ML AMP ONE (08:21)
[2020-05-09] MEDS ORDERED: LACTATED RINGERS 1,000 ML IV ONE ×2 (08:21)
[2020-05-09] MEDS ORDERED: NEOSTIGMINE 1 MG/ML 10 ML VIAL ONE (08:21)
[2020-05-09] MEDS ORDERED: LIDOCAINE 1% INJ 10MG/ML (20 ML MDV) ONE (08:21)
[2020-05-09] MEDS ORDERED: SUCCINYLCHOLINE CHLORIDE 100 MG/5 ML SYR IV ONE (08:21)
[2020-05-09] MEDS ORDERED: KETOROLAC 15 MG/ML 1 ML VIAL ONE (08:21)
[2020-05-09] MEDS ORDERED: GLYCOPYRROLATE 0.2 MG/ML 2 ML VIAL ONE (08:21)
[2020-05-09] MEDS ORDERED: ROCURONIUM BROMIDE 10 MG/ML 5 ML VIAL IV ONE (08:21)
[2020-05-09] MEDS ORDERED: MIDAZOLAM 2 MG/2 ML VIAL ONE (08:21)
[2020-05-09] MEDS ORDERED: PROPOFOL 10 MG/ML 20 ML VIAL IV ONE (08:21)
[2020-05-09] MEDS ORDERED: LIDOCAINE URO-JET JELLY 2% 5 ML KIT URETHRAL ONE (08:50)
[2020-05-09] MEDS ORDERED: BUPIVACAINE (PF) 0.25% 30 ML VIAL SQ ONE ×2 (08:50)
--- NOTE | 2020-05-09 09:16 | P.OP ---
Date of Procedure: 05/09/20 Preoperative Diagnosis: Menometrorrhagia, family status complete Postoperative Diagnosis: Same Procedure(s) Performed: Laparoscopic tubal ligation with hysteroscopy, dilation and curettage and endometrial ablation with NovaSure Anesthesia: DIMA Surgeon: Alley Owen Estimated Blood Loss (ml): 10 IV fluids (ml): 700 Urine output (ml): 50 Pathology: other (Endometrial curettings) Condition: stable Disposition: PACU Indications for Procedure: This 39-year-old female presented with complaints of heavy irregular menstrual breathing. Patient is desirous of tubal ligation as family planning is complete. Options reviewed given patient's history of DVT/PE recommendation was endometrial ablation to avoid hormonal mediation of her cycles. Patient stated understanding and wishes to proceed Operative Findings: Small amount of anterior omental adhesions uterus is noted to be mobile not enlarged ovaries appear normal bilaterally Description of Procedure: Patient was taken back to the operating suite where general anesthesia was obtained without difficulty by the anesthesia department. She was prepped and draped in normal sterile fashion in dorsal lithotomy position. Weighted speculum was placed in the posterior vaginal vault. A red rubber catheter was used to drain the bladder of clear yellow urine. The anterior lip of the cervix is visualized grasped with a single-tooth tenaculum and an acorn uterine manipulator was advanced into the cervical canal as a means to manipulate the uterus throughout the procedure. Attention was then turned the patient's abdomen where in the umbilical fold a small skin incision is made. Through this incision the Veress needle was placed. Once the Veress needle was deemed to be in the appropriate position with a drop of CO2 pressure with insufflation of CO2 gas CO2 insufflation was allowed to occur. At this time a 5 mm trocar and sleeve with the laparoscope in place placed through the skin incision toward the pneumoperitoneum the above-noted findings are visualized. An additional port site is placed in the right mid quadrant this is placed under direct visualization and is a 10 mm port. The uterus was then elevated the left fallopian tube is visualized and the Filshie clip applicator is applied, this was then repeated on the opposite fallopian tube. Hemostasis appreciated. All instrument removed from the patient's abdomen. Attention was then turned the patient's vaginal vault where the acorn uterine manipulator was removed without difficulty. The cervical canal was then dilated circumferentially until 15- Portuguese. Hysteroscopy was then performed. A sterile split through the cervix and toward the and Margaret cavity a proliferative endometrium was noted. Sharp curettage was then performed. The specimen was then sent to pathology for analysis. At this time the NovaSure device was then opened and set to the uterine measurements of 5 cm in length, 3.6 in width. Power of 109 for just over 1 minute of the cycle. Patient's cavity did pass the cavity assessment prior to the cycle being completed. After the cycle was complete the device was removed without difficulty hemostasis was appreciated on the anterior lip of the cervix after the single-tooth tenaculum was removed. All counts were correct 2 at the end of the procedure. Patient tolerated procedure well was taken the recovery room awake in stable condition.
[2020-05-09] MEDS: HYDROmorphone 0.5 MG/0.5 ML SYRINGE IVP PRN ×4 (09:26→09:46)
[2020-05-09] MEDS ORDERED: fentaNYL (PF) 50 MCG/ML 2 ML AMP IV ONE ×2 (10:03)
[2020-05-09] MEDS ORDERED: HYDROcodone/APAP 5-325MG 1 EACH TAB ONE (11:00)
[2020-05-09] MEDS ORDERED: Acetaminophen-Codeine 300-30mg TAB ONE (11:05)
[2020-05-09 11:25] VITALS: BP 121/86; PULSE 71
== END 2020-05-09 11:52 | disposition home or self-care (01) ==
LOC: OR 07:08
PROVIDERS: ATTEND Obstetrics & Gynecology Obstetrics
DX: N92.1 Excessive and frequent menstruation with irregular cycle (principal); K66.0 Peritoneal adhesions (postprocedural) (postinfection); Z30.2 Encounter for sterilization; Z86.711 Personal history of pulmonary embolism; F17.210 Nicotine dependence, cigarettes, uncomplicated; D64.9 Anemia, unspecified; F41.9 Anxiety disorder, unspecified; M19.90 Unspecified osteoarthritis, unspecified site; F32.9 Major depressive disorder, single episode, unspecified; E07.9 Disorder of thyroid, unspecified; I10 Essential (primary) hypertension; E66.01 Morbid (severe) obesity due to excess calories; Z68.41 Body mass index [BMI] 40.0-44.9, adult; Z86.718 Personal history of other venous thrombosis and embolism; Z90.49 Acquired absence of other specified parts of digestive tract; Z98.890 Other specified postprocedural states; Z79.890 Hormone replacement therapy; Z79.01 Long term (current) use of anticoagulants; Z79.899 Other long term (current) drug therapy
CPT/HCPCS: 81025; 88305; 58563; 58671; J2250; J1100; J2710; J2405; J2001; J3010; J1885; J0330; J2704; J1170

== ENCOUNTER 2022-07-27 09:44 | Inpatient (IN) | payer OTHER ==
--- NOTE | 2022-07-27 10:09 | XR ---
EXAMINATION TYPE: XR chest 2V DATE OF EXAM: 07/27/2022 COMPARISON: 09/03/2018 TECHNIQUE: PA and lateral views submitted. HISTORY: Cough FINDINGS: The lungs are clear and there is no pneumothorax, pleural effusion, or focal pneumonia. A coarsened interstitium. Heart is enlarged. Hyperinflation. There is subsegmental changes involving the right l elsie base and right perihilar region. IMPRESSION: 1. Findings compatible with cardiomegaly, COPD and findings suggestive of interstitial lung disease o r pneumonitis. There is no area of vague density in the right lower lobe and right perihilar region w hich could represent developing infiltrate
[2022-07-27] MEDS ORDERED: IPRATROPIUM-ALBUTEROL 3 ML NEB INHALATION STA (10:16)
[2022-07-27] MEDS ORDERED: amLODIPine 10 MG TAB PO STA (10:17)
[2022-07-27] MEDS ORDERED: METOPROLOL TARTRATE 50 MG TAB PO STA (10:17)
--- NOTE | 2022-07-27 10:19 | ED ---
General Adult HPI - General Chief complaint: Shortness of Breath Stated complaint: SOB Time Seen by Provider: 07/27/22 10:04 Source: patient, RN notes reviewed Mode of arrival: ambulatory Limitations: no limitations - History of Present Illness Initial comments: Patient is a pleasant 41-year-old female presenting to the emergency department with concerns with difficulty breathing. Onset of symptoms was a week or 2 ago and progressively has worsen. Patient did have similar symptoms less than a month ago. Patient had COVID-19 infection a few months ago. Patient does have history of previous pulmonary embolism. Patient does have cough that is no nproductive. Patient states her nebulizer treatment helps mildly with symptoms. No leg pain or leg swelling. No fever. No congestion. Patient did not take her morning Norvasc or Lopressor. - Related Data Home Medications Medication Instructions Recorded Confirmed Albuterol Inhaler [Ventolin Hfa 1 - 2 puff INHALATION RT-Q6H PRN 07/27/22 07/27/22 Inhaler] Albuterol Nebulized [Ventolin 2.5 mg INHALATION RT-QID PRN 07/27/22 07/27/22 Nebulized] Allergies Allergy/AdvReac Type Severity Reaction Status Date / Time Iodinated Contrast Media Allergy Severe Anaphylaxis Verified 07/27/22 12:15 Review of Systems ROS Statement: Those systems with pertinent positive or pertinent negative responses have been documented in the HPI. ROS Other: All systems not noted in ROS Statement are negative. Constitutional: Denies: fever Eyes: Denies: eye pain ENT: Denies: ear pain Respiratory: Reports: as per HPI, cough, dyspnea Cardiovascular: Denies: chest pain Endocrine: Denies: fatigue Gastrointestinal: Denies: abdominal pain Genitourinary: Denies: dysuria Musculoskeletal: Denies: back pain Skin: Denies: rash Neurological: Denies: weakness Past Medical History Past Medical History: CVA/TIA, Deep Vein Thrombosis (DVT), GERD/Reflux, GI Ble ed, Hypertension, Pneumonia, Pulmonary Embolus (PE), Renal Disease, Thyroid Disorder Additional Past Medical History / Comment(s): Pt states she was just treated with antibiotics for L lower leg cellulitis and stated it was gone morning of 11/04/19 then last night she noticed it was back and looked worse to her. Other hx: Bilateral PEs, DVT-pt thinks bilaterally, TIA, pt is currently being worked up for lupus, CKD stage II-R kidney atrophy, bronchitis, stomach ulcer, upper and lower GI bleeds, diverticular disease, palpitations, hypothyroid. History of Any Multi-Drug Resistant Organisms: None Reported Past Surgical History: Section, Cholecystectomy Additional Past Surgical History / Comment(s): 11/04/19 lap sharyn, EGD, colonoscopy, C-SEC X 2, sinus surgery, D&C Past Anesthesia/Blood Transfusion Reactions: No Reported Reaction Past Psychological History: Bipolar, Depression Smoking Status: Current every day smoker Past Alcohol Use History: None Reported Past Drug Use History: None Reported - Past Family History Mother Family Medical History: No Reported History Additional Family Medical History / Comment(s): Mother is healthy Father Family Medical History: COPD, Coronary Artery Disease (CAD) Additional Family Medical History / Comment(s): Father was born with polio. He has had CABG General Exam Limitations: no limitations General appearance: alert Head exam: Present: normocephalic Eye exam: Present: normal appearance Neck exam: Present: normal inspection Respiratory exam: Present: respiratory distress (Mild), wheezes Cardiovascular Exam: Present: tachycardia GI/Abdominal exam: Present: soft. Absent: tenderness Extremities exam: Present: normal inspection. Absent: pedal edema, calf tenderness Neurological exam: Present: alert Psychiatric exam: Present: normal affect, normal mood Skin exam: Present: normal color Course Vital Signs 07/27/22 07/27/22 07/27/22 09:46 10:36 11:14 Temperature 98.5 F Pulse Rate 109 H 95 96 Respiratory 24 18 Rate Blood Pressure 223/135 204/148 O2 Sat by Pulse 96 96 Oximetry 07/27/22 11:21 Temperature Pulse Rate 86 Respiratory Rate Blood Pressure O2 Sat by Pulse Oximetry EKG Findings - EKG Results: EKG: interpreted by ERMD (Poor R-wave progression. Precordial Q waves), sinus rhythm, normal axis, normal ST/T EKG shows: tachycardia Medical Decision Making - Medical Decision Making Patient evaluated post computed tomography scan. Patient did vomit and complains of swelling of her throat. Patient does have angioedema. Patient does have moderate uvular edema with mild tongue edema. Patient ordered stat slight Medrol, Pepcid, and Benadryl. Patient again reevaluated and is somewhat improved. Uvula edema is mild. Patient denies dyspnea. Case was discussed with Dr. Perez, who will admit covering hospital call. Patient's symptoms are likely infectious versus fluid. Patient will be admitted with pulmonary consult. Echo will be ordered. Additional intravenous blood pressure medication ordered. - Lab Data Result diagrams: 07/27/22 10:13 07/27/22 10:13 Lab Results 07/27/22 07/27/22 07/27/22 Range/Units 09:51 10:13 10:13 WBC 6.9 (3.8-10.6) k/uL RBC 5.28 (3.80-5.40) m/uL Hgb 13.8 (11.4-16.0) gm/dL Hct 42.3 (34.0-46.0) % MCV 80.1 (80.0-100.0) fL MCH 26.2 (25.0-35.0) pg MCHC 32.7 (31.0-37.0) g/dL RDW 15.4 (11.5-15.5) % Plt Count 135 L (150-450) k/uL MPV 9.9 Neutrophils % 76 % Lymphocytes % 15 % Monocytes % 5 % Eosinophils % 2 % Basophils % 1 % Neutrophils # 5.3 (1.3-7.7) k/uL Lymphocytes # 1.0 (1.0-4.8) k/uL Monocytes # 0.3 (0-1.0) k/uL Eosinophils # 0.1 (0-0.7) k/uL Basophils # 0.0 (0-0.2) k/uL Hypochromasia Slight PT 9.8 (9.0-12.0) sec INR 0.9 (<1.2) APTT 23.2 (22.0-30.0) sec D-Dimer 2.75 H (<0.60) mg/L FEU Sodium (137-145) mmol/L Potassium (3.5-5.1) mmol/L Chloride (98-107) mmol/L Carbon Dioxide (22-30) mmol/L Anion Gap mmol/L BUN (7-17) mg/dL Creatinine (0.52-1.04) mg/dL Est GFR (CKD-EPI)AfAm (>60 ml/min/1.73 sqM) Est GFR (CKD-EPI)NonAf (>60 ml/min/1.73 sqM) Glucose (74-99) mg/dL Plasma Lactic Acid Natalio (0.7-2.0) mmol/L Calcium (8.4-10.2) mg/dL Magnesium (1.6-2.3) mg/dL Total Bilirubin (0.2-1.3) mg/dL AST (14-36) U/L ALT (4-34) U/L Alkaline Phosphatase (38-126) U/L Troponin I (0.000-0.034) ng/mL NT-Pro-B Natriuret Pep pg/mL Total Protein (6.3-8.2) g/dL Albumin (3.5-5.0) g/dL Influenza Type A (PCR) Not Detected (Not Detectd) Influenza Type B (PCR) Not Detected (Not Detectd) RSV (PCR) Not Detected (Not Detectd) SARS-CoV-2 (PCR) Not Detected (Not Detectd) 07/27/22 07/27/22 07/27/22 Range/Units 10:13 10:13 10:13 WBC (3.8-10.6) k/uL RBC (3.80-5.40) m/uL Hgb (11.4-16.0) gm/dL Hct (34.0-46.0) % MCV (80.0-100.0) fL MCH (25.0-35.0) pg MCHC (31.0-37.0) g/dL RDW (11.5-15.5) % Plt Count (150-450) k/uL MPV Neutrophils % % Lymphocytes % % Monocytes % % Eosinophils % % Basophils % % Neutrophils # (1.3-7.7) k/uL Lymphocytes # (1.0-4.8) k/uL Monocytes # (0-1.0) k/uL Eosinophils # (0-0.7) k/uL Basophils # (0-0.2) k/uL Hypochromasia PT (9.0-12.0) sec INR (<1.2) APTT (22.0-30.0) sec D-Dimer (<0.60) mg/L FEU Sodium 137 (137-145) mmol/L Potassium 3.8 (3.5-5.1) mmol/L Chloride 104 (98-107) mmol/L Carbon Dioxide 28 (22-30) mmol/L Anion Gap 5 mmol/L BUN 11 (7-17) mg/dL Creatinine 0.87 (0.52-1.04) mg/dL Est GFR (CKD-EPI)AfAm >90 (>60 ml/min/1.73 sqM) Est GFR (CKD-EPI)NonAf 84 (>60 ml/min/1.73 sqM) Glucose 136 H (74-99) mg/dL Plasma Lactic Acid Natalio 0.7 (0.7-2.0) mmol/L Calcium 7.8 L (8.4-10.2) mg/dL Magnesium 1.9 (1.6-2.3) mg/dL Total Bilirubin 1.3 (0.2-1.3) mg/dL AST 38 H (14-36) U/L ALT 59 H (4-34) U/L Alkaline Phosphatase 125 (38-126) U/L Troponin I 0.029 (0.000-0.034) ng/mL NT-Pro-B Natriuret Pep pg/mL Total Protein 6.9 (6.3-8.2) g/dL Albumin 3.9 (3.5-5.0) g/dL Influenza Type A (PCR) (Not Detectd) Influenza Type B (PCR) (Not Detectd) RSV (PCR) (Not Detectd) SARS-CoV-2 (PCR) (Not Detectd) 07/27/22 Range/Units 10:13 WBC (3.8-10.6) k/uL RBC (3.80-5.40) m/uL Hgb (11.4-16.0) gm/dL Hct (34.0-46.0) % MCV (80.0-100.0) fL MCH (25.0-35.0) pg MCHC (31.0-37.0) g/dL RDW (11.5-15.5) % Plt Count (150-450) k/uL MPV Neutrophils % % Lymphocytes % % Monocytes % % Eosinophils % % Basophils % % Neutrophils # (1.3-7.7) k/uL Lymphocytes # (1.0-4.8) k/uL Monocytes # (0-1.0) k/uL Eosinophils # (0-0.7) k/uL Basophils # (0-0.2) k/uL Hypochromasia PT (9.0-12.0) sec INR (<1.2) APTT (22.0-30.0) sec D-Dimer (<0.60) mg/L FEU Sodium (137-145) mmol/L Potassium (3.5-5.1) mmol/L Chloride (98-107) mmol/L Carbon Dioxide (22-30) mmol/L Anion Gap mmol/L BUN (7-17) mg/dL Creatinine (0.52-1.04) mg/dL Est GFR (CKD-EPI)AfAm (>60 ml/min/1.73 sqM) Est GFR (CKD-EPI)NonAf (>60 ml/min/1.73 sqM) Glucose (74-99) mg/dL Plasma Lactic Acid Natalio (0.7-2.0) mmol/L Calcium (8.4-10.2) mg/dL Magnesium (1.6-2.3) mg/dL Total Bilirubin (0.2-1.3) mg/dL AST (14-36) U/L ALT (4-34) U/L Alkaline Phosphatase (38-126) U/L Troponin I (0.000-0.034) ng/mL NT-Pro-B Natriuret Pep 2080 pg/mL Total Protein (6.3-8.2) g/dL Albumin (3.5-5.0) g/dL Influenza Type A (PCR) (Not Detectd) Influenza Type B (PCR) (Not Detectd) RSV (PCR) (Not Detectd) SARS-CoV-2 (PCR) (Not Detectd) - Radiology Data Radiology results: report reviewed (CT angios of the chest negative for pulmonary embolism. Cardiomegaly. Trace right effusion. Right lung ground glass opacities. Possible CHF versus infectious. Nodule. Lymph node.) Interpreted by me: Chest x-ray shows right lower lobe infiltrate. COPD. Cardiomegaly. Critical Care Time Critical Care Time: Yes Total Critical Care Time: 32 Disposition Clinical Impression: Contrast media adverse reaction, Angioedema, Hypertensive urgency, Dyspnea Disposition: ADMITTED IP TO THIS HOSP Is patient prescribed a controlled substance at d/c from ED?: No Referrals: None,Stated [Primary Care Provider] - 1-2 days Time of Disposition: 12:30
[2022-07-27 10:37] LABS: Basophils % (A) 1 %; Eosinophils # (A) 0.1 k/uL (0-0.7); Eosinophils % (A) 2 %; HCT 42.3 % (34.0-46.0); HGB 13.8 gm/dL (11.4-16.0); Hypochromasia Slight; Lymphocytes % (A) 15 %; MCH 26.2 pg (25.0-35.0); MCHC 32.7 g/dL (31.0-37.0); MCV 80.1 fL (80.0-100.0); Mean Platelet Volume 9.9; Monocytes # (A) 0.3 k/uL (0-1.0); Monocytes % (A) 5 %; Neutrophils # (A) 5.3 k/uL (1.3-7.7); Neutrophils % (A) 76 %; Platelet Count 135 k/uL (150-450); RBC 5.28 m/uL (3.80-5.40); RDW 15.4 % (11.5-15.5); WBC 6.9 k/uL (3.8-10.6)
[2022-07-27 10:49] LABS: ALT 59 U/L (4-34); AST 38 U/L (14-36); African American GFR (CKD) >90 (>60 ml/min/1.73 sqM); Albumin 3.9 g/dL (3.5-5.0); Alkaline Phosphatase 125 U/L (38-126); Anion Gap 5 mmol/L; Blood Urea Nitrogen 11 mg/dL (7-17); Calcium 7.8 mg/dL (8.4-10.2); Carbon Dioxide 28 mmol/L (22-30); Chloride 104 mmol/L (98-107); Glucose 136 mg/dL (74-99); Magnesium 1.9 mg/dL (1.6-2.3); Non-African American GFR(CKD) 84 (>60 ml/min/1.73 sqM); Potassium 3.8 mmol/L (3.5-5.1); Sodium 137 mmol/L (137-145); Total Bilirubin 1.3 mg/dL (0.2-1.3); Total Protein 6.9 g/dL (6.3-8.2)
[2022-07-27 10:52] LABS: INR 0.9 (<1.2); Partial Thromboplastin Time 23.2 sec (22.0-30.0); Prothrombin Time 9.8 sec (9.0-12.0)
[2022-07-27] MEDS ORDERED: NALOXONE 0.4 MG/ML 1 ML VIAL IV PRN (11:38)
[2022-07-27] MEDS ORDERED: ONDANSETRON 4 MG/2 ML VIAL IVP PRN (11:38)
[2022-07-27] MEDS ORDERED: IPRATROPIUM-ALBUTEROL 3 ML NEB INHALATION PRN (11:39)
[2022-07-27] MEDS ORDERED: AZITHROMYCIN 500 MG in SODIUM CHLORIDE 0.9% 250 ML IVPB STA (11:40)
--- NOTE | 2022-07-27 11:48 | P.HPIM ---
History of Present Illness H&P Date: 07/27/22 Chief Complaint: sob 41-year-old female with history of hypertension and pulmonary embolism presenting to the emergency department with concerns with difficulty breathing. Onset of symptoms was a week or 2 ago and progressively has worsen. Patient had COVID-19 infection a few months ago, improved and then got worse again. Over the past several weeks she has been having symptoms of worsening wheezing, shortness of breath, dry cough, chills, no fever, nausea and diarrhea. No vomiting. She has been feeling generally weak. Has been feeling dizzy and was about to pass out. Patient does have history of previous pulmonary embolism, stopped taking Coumadin in 2014 as her INR was difficult to manage. She has albuterol at home which she has been taking for her symptoms. Patient has bilateral leg swelling which has been ongoing for years.. Examination in the emergency department reveals no fever, blood pressure was in the 200s systolic. Labs were generally unremarkable except for slightly elevated proBNP at 2080. Patient chest x-ray showed cardiomegaly, COPD, interstitial lung disease versus infiltrate, right lower lobe and right hilar consolidation. Patient was admitted for further evaluation and management. Review of Systems Complete review of system performed, pertinent positives per HPI, otherwise negative Past Medical History Past Medical History: CVA/TIA, Deep Vein Thrombosis (DVT), GERD/Reflux, GI Bleed, Hypertension, Pneumonia, Pulmonary Embolus (PE), Renal Disease, Thyroid Disorder Additional Past Medical History / Comment(s): Pt states she was just treated with antibiotics for L lower leg cellulitis and stated it was gone morning of 11/04/19 then last night she noticed it was back and looked worse to her. Other hx: Bilateral PEs, DVT-pt thinks bilaterally, TIA, pt is currently being worked up for lupus, CKD stage II-R kidney atrophy, bronchitis, stomach ulcer, upper and lower GI bleeds, diverticular disease, palpitations, hypothyroid. History of Any Multi-Drug Resistant Organisms: None Reported Past Surgical History: Section, Cholecystectomy Additional Past Surgical History / Comment(s): 11/04/19 lap sharyn, EGD, colonoscopy, C-SEC X 2, sinus surgery, D&C Past Anesthesia/Blood Transfusion Reactions: No Reported Reaction Past Psychological History: Bipolar, Depression Smoking Status: Current every day smoker Past Alcohol Use History: None Reported Past Drug Use History: None Reported - Past Family History Mother Family Medical History: No Reported History Additional Family Medical History / Comment(s): Mother is healthy Father Family Medical History: COPD, Coronary Artery Disease (CAD) Additional Family Medical History / Comment(s): Father was born with polio. He has had CABG Medications and Allergies Home Medications Medication Instructions Recorded Confirmed Type Fluticasone Propionate [Flonase 1 - 2 spray EA NOSTRIL DAILY 5 09/03/18 05/05/20 Rx Allergy Relief] Days ml Labetalol HCl [Trandate] 300 mg PO BID 09/03/18 05/05/20 History Apixaban [Eliquis] 5 mg PO BID 11/02/19 05/05/20 History Levothyroxine Sodium 100 mcg PO DAILY 11/02/19 05/05/20 History amLODIPine [Norvasc] 5 mg PO DAILY 11/02/19 05/05/20 History Spironolactone 50 mg PO DAILY 11/05/19 05/05/20 History Allergies Allergy/AdvReac Type Severity Reaction Status Date / Time No Known Allergies Allergy Verified 07/27/22 09:48 Physical Exam Vitals: Vital Signs Temp Pulse Resp BP Pulse Ox 07/27/22 11:21 86 07/27/22 11:14 96 07/27/22 10:36 95 18 204/148 96 07/27/22 09:46 98.5 F 109 H 24 223/135 96 Intake and Output 07/26/22 07/27/22 07/27/22 22:59 06:59 14:59 Other: Weight 127.006 kg Constitutional: Diaphoretic, conversant, pleasant Eyes:Anicteric sclerae, moist conjunctiva, no lid-lag, PERRLA, ENMT: Oropharynx clear, no erythema, exudates Neck: Supple, FROM, no masses, or JVD, No carotid bruits, No thyromegaly Lungs: Bilateral wheezing and rhonchi, Clear to percussion, Normal respiratory effort, no accessory muscle use Cardiovascular: Heart regular in rate and rhythm, No murmurs, gallops, or rubs, No peripheral edema Abdominal: Soft, Nontender, no guarding, rebound or rigidity, Normoactive bowel sounds, No hepatomegaly, No splenomegaly, No palpable mass Skin: Normal temperature, tone, texture, turgor, no induration, No subcutaneous nodules, No rash, lesions, No ulcers Extremities: No digital cyanosis, No clubbing, Pedal pulses intact and symmetrical, Radial pulses intact and symmetrical, No calf tenderness Psychiatric: Alert and oriented to person, place and time, appropriate affect, intact judgement Neuro: Muscles Strength 5/5 in all 4 extremities, Sensation to light touch grossly present throughout, Cranial nerves II-XII grossly intact, no focal sensory deficits Results CBC & Chem 7: 07/27/22 10:13 07/27/22 10:13 Labs: Abnormal Lab Results - Last 24 Hours (Table) 07/27/22 07/27/22 07/27/22 Range/Units 10:13 10:13 10:13 Plt Count 135 L (150-450) k/uL D-Dimer 2.75 H (<0.60) mg/L FEU Glucose 136 H (74-99) mg/dL Calcium 7.8 L (8.4-10.2) mg/dL AST 38 H (14-36) U/L ALT 59 H (4-34) U/L Assessment and Plan Plan: Shortness of breath likely secondary to right lower lobe pneumonia Start empiric antibiotics ceftriaxone and azithromycin. Blood cultures 2 Acute asthma/COPD exacerbation Steroids IV Bronchodilators Elevated proBNP She does not have a heart history, will give 1 dose of IV Lasix 20 mg Check echocardiogram Hypertensive urgency Resume BP meds IV hydralazine when necessary for systolic blood pressure more than 180 Hx of DVT and PE, GERD/Reflux, Hypothyroidism Chronic resume meds Admit to inpatient expected length of stay more than 2 midnights.
[2022-07-27] MEDS ORDERED: methylPREDNISolone SOD SUCCI 125 MG/2 ML VIAL IV STA (11:57)
[2022-07-27] MEDS ORDERED: diphenhydrAMINE 50 MG/ML 1 ML VIAL IVP STA (11:58)
[2022-07-27] MEDS ORDERED: FAMOTIDINE 20 MG/2 ML VIAL IV STA (11:58)
--- NOTE | 2022-07-27 12:10 | CT ---
EXAMINATION TYPE: CT angio chest CT DLP: 928.5 mGycm, Automated exposure control for dose reduction was used. DATE OF EXAM: 07/27/2022 11:51 AM COMPARISON: Chest radiograph from same day. CLINICAL INDICATION:Female, 41 years old with history of dyspnea; Dyspnea TECHNIQUE/CONTRAST: CTA scan of the thorax is performed with IV Contrast, patient injected with 100 mL of Isovue 370, pul monary embolism protocol. MIP images are created and reviewed. FINDINGS: Pulmonary Artery: There is no evidence for a filling defect within the pulmonary vasculature to sugge st acute pulmonary embolism. The pulmonary artery is of normal size. Reflux of contrast into the IVC . Lungs/Pleura: No pneumothorax. Interlobular septal thickening . Trace right pleural effusion. Right l ower lobe 1.3 cm pulmonary nodule (series 406, image 93). Groundglass opacities demonstrated througho ut the right lung with mosaic attenuation in the lung bases. Right lower lobe peripheral consolidatio n measuring up to 3.2 cm (series 406, image 86). Airway: Large airways are patent. Heart: Moderate cardiomegaly. No pericardial effusion.. Vasculature: No evidence of aortic aneurysm. Mediastinum: Mediastinal adenopathy with a subcarinal lymph node measuring 1.9 cm short axis (series 401, image 58). Musculoskeletal: No acute osseous abnormalities Soft Tissues: Unremarkable. Lower neck: No significant findings. Upper Abdomen: Mild splenomegaly measuring 15.1 cm. IMPRESSION: 1. No evidence of pulmonary embolism. 2. Moderate cardiomegaly with trace right pleural effusion and interlobular septal thickening sugges ting CHF exacerbation. 3. Groundglass opacities throughout the right lung possibly related to #2 versus superimposed infect ious process. 4. Right lower lobe 1.3 cm pulmonary nodule with right lower lobe peripheral consolidation. Short-te rm follow-up chest after treatment in 3 months is recommended. 5. Enlarged mediastinal lymph nodes which may be reactive. 6. Mild splenomegaly.
[2022-07-27] MEDS ORDERED: hydrALAZINE HCL 20 MG/ML 1 ML VIAL IVP STA (12:25)
[2022-07-27] MEDS ORDERED: diphenhydrAMINE 50 MG/ML 1 ML VIAL IVP PRN (12:26)
[2022-07-27] MEDS ORDERED: PNEUMONIA PROTOCOL UTILIZED 1 EACH MISC PO PRN (12:31)
[2022-07-27 12:37] LABS: VBG PH 7.36 (7.31-7.41)
[2022-07-27] MEDS: methylPREDNISolone SOD SUCCI 40 MG/ML 1 ML VIAL IV SCH ×3 (12:57→23:36)
[2022-07-27] MEDS: IPRATROPIUM-ALBUTEROL 3 ML NEB INHALATION SCH ×3 (15:10→19:27)
[2022-07-27] MEDS ORDERED: ALPRAZolam 0.5 MG TAB PO STA (15:26)
[2022-07-27] MEDS ORDERED: HEPARIN SODIUM 1,000 UN/ML (10ML VL) IV ONE (17:00)
[2022-07-27] MEDS: HEPARIN SOD,PORK IN 0.45% NACL 25,000 UNIT in 0.45% NACL 1 250ML.BAG IV SCH (17:28)
--- NOTE | 2022-07-27 17:50 | P.CNPUL ---
History of Present Illness Consult date: 07/27/22 Requesting physician: Sydnee Venegas Reason for consult: dyspnea, hypoxemia, abnormal CXR/CT Chief complaint: Shortness of breath. History of present illness: Pulmonary consult dated 07/27/2022. 41-year-old female with a history of CVA, DVT, GERD, GI bleed, hypertension, pneumonia, pulmonary embolism, and thyroid disorder. The patient presents to the emergency department, with complaints of shortness of breath. She apparently is been having shortness of breath for about 2 weeks prior to admission. The patient did have an episode of coronavirus infection a few months ago. She also has a history of pulmonary embolism. She has a nonproductive cough. She denied any fever or chills. No chest congestion. No chest pain or chest discomfort. She apparently did not take her morning dose of Norvasc or Lopressor. She is laying in the emergency room, on stretcher #19. She's on room air. She had oxygen on, but her room air saturation is 96%. White count 6.9, hemoglobin 13.8, hematocrit 42.8, and platelet count 235,000. D-dimer was 2.75. Venous blood gases show pCO2 of 47 and a pH is 7.36. Sodium 137, potassium 3.8, chlorides 104, CO2 28, anion gap 5, BUN 11, creatinine 0.87. AST 38 with an ALT of 59. Troponins were 0.029 and 0.035. N-terminal proBNP was elevated at 2080. She tested negative for influenza A, influenza B, as well as RSV, and coronavirus. Chest x-ray my opinion showed cardiomegaly, and changes consistent with fluid overload/CHF. CT angiogram was negative for pulmonary embolism, showed cardiomegaly, with trace right pleural effusion and findings consistent with CHF, groundglass opacities throughout the right lung, a right lower lobe 1.3 cm pulmonary nodule, and enlarged mediastinal lymph nodes, which may be reactive. In addition she had mild splenomegaly. Review of Systems REVIEW OF SYSTEMS: CONSTITUTIONAL: [Negative.] NEUROLOGIC: [ Negative.] HEENT: [ Negative.] CARDIAC: [Negative.] PULMONARY: Shortness of breath and nonproductive cough. GI: [Negative.] : [Negative.] RHEUMATOLOGIC: [ Negative.] IMMUNOLOGIC: [ Negative.] ENDOCRINE: [Negative. ] DERMATOLOGIC: [Negative.] Past Medical History Past Medical History: CVA/TIA, Deep Vein Thrombosis (DVT), GERD/Reflux, GI Bleed, Hypertension, Pneumonia, Pulmonary Embolus (PE), Renal Disease, Thyroid Disorder Additional Past Medical History / Comment(s): Pt states she was just treated with antibiotics for L lower leg cellulitis and stated it was gone morning of 11/04/19 then last night she noticed it was back and looked worse to her. Other hx: Bilateral PEs, DVT-pt thinks bilaterally, TIA, pt is currently being worked up for lupus, CKD stage II-R kidney atrophy, bronchitis, stomach ulcer, upper and lower GI bleeds, diverticular disease, palpitations, hypothyroid. History of Any Multi-Drug Resistant Organisms: None Reported Past Surgical History: Section, Cholecystectomy Additional Past Surgical History / Comment(s): 11/04/19 lap sharyn, EGD, colonoscopy, C-SEC X 2, sinus surgery, D&C Past Anesthesia/Blood Transfusion Reactions: No Reported Reaction Past Psychological History: Bipolar, Depression Smoking Status: Current every day smoker Past Alcohol Use History: None Reported Past Drug Use History: None Reported - Past Family History Mother Family Medical History: No Reported History Additional Family Medical History / Comment(s): Mother is healthy Father Family Medical History: COPD, Coronary Artery Disease (CAD) Additional Family Medical History / Comment(s): Father was born with polio. He has had CABG Medications and Allergies Home Medications Medication Instructions Recorded Confirmed Type Albuterol Inhaler [Ventolin Hfa 1 - 2 puff INHALATION RT-Q6H PRN 07/27/22 07/27/22 History Inhaler] Albuterol Nebulized [Ventolin 2.5 mg INHALATION RT-QID PRN 07/27/22 07/27/22 History Nebulized] Allergies Allergy/AdvReac Type Severity Reaction Status Date / Time Iodinated Contrast Media Allergy Severe Anaphylaxis Verified 07/27/22 12:15 Physical Exam Osteopathic Statement: *. No significant issues noted on an osteopathic structural exam other than those noted in the History and Physical/Consult. Vitals: Vital Signs Temp Pulse Resp BP Pulse Ox 07/27/22 16:54 70 18 149/98 96 07/27/22 15:25 93 07/27/22 15:13 90 07/27/22 14:50 82 18 162/111 98 07/27/22 14:04 80 18 170/116 07/27/22 12:59 74 18 197/110 98 07/27/22 11:21 86 07/27/22 11:14 96 07/27/22 10:36 95 18 204/148 96 07/27/22 09:46 98.5 F 109 H 24 223/135 96 Intake and Output 07/27/22 07/27/22 07/27/22 06:59 14:59 22:59 Other: Weight 127.006 kg No acute distress, sleeping, arousable, currently on room air. No respiratory distress. No audible wheezing. HEENT examination is grossly unremarkable. Neck supple. Full range of motion. No adenopathy thyromegaly or neck vein distention. Cardiovascular examination reveals regular rhythm rate. S1-S2 normal. No S3 or S4. No discernible murmur noted. Heart rate 70. Heart sounds are distant. Lungs reveal scattered rhonchi. Breath sounds equal. Scattered crackles. No w heezes. Room air saturation 96%. Abdomen obese, no masses or tenderness. Extremities are intact. No cyanosis or clubbing. Trace edema. Skin is without rash or lesion. Neurologic examination is brief but nonfocal. Results - Laboratory Findings CBC and BMP: 07/27/22 10:13 07/27/22 10:13 PT/INR, D-dimer PT 9.8 sec (9.0-12.0) 07/27/22 10:13 INR 0.9 (<1.2) 07/27/22 10:13 D-Dimer 2.75 mg/L FEU (<0.60) H 07/27/22 10:13 Abnormal lab findings: Abnormal Labs 07/27/22 07/27/22 07/27/22 10:13 10:13 10:13 Plt Count 135 L D-Dimer 2.75 H Glucose 136 H Calcium 7.8 L AST 38 H ALT 59 H Troponin I 07/27/22 15:19 Plt Count D-Dimer Glucose Calcium AST ALT Troponin I 0.035 H* - Diagnostic Findings Chest x-ray: image reviewed CT scan - chest: image reviewed Assessment and Plan Assessment: Shortness of breath, likely multifactorial, in part related to underlying COPD, but also possible CHF and/or pneumonia. History of CVA. History of DVT and pulmonary embolism. History of GERD. History of GI bleed. History of hypertension. History of thyroid disorder. History of lower extremity cellulitis. Recent episode of coronavirus infection. Bipolar disorder. Current every day tobacco user. Plan: Plan dated 07/27/2022. The patient was placed back on some of her home medications. In addition, she was given azithromycin and Rocephin for possible pneumonia. We will check a pro-calcitonin level. She was also given updrafts with albuterol sulfate and ipratropium bromide, as well as Solu-Medrol. Additional recommendations and suggestions are forthcoming. Her chest x-ray my opinion looks like CHF. Cardiology should be asked to see this patient. She should have an echocardiogram. Additional recommendations and suggestions are forthcoming. Prognosis is guarded. Time with Patient: Greater than 30
[2022-07-27 18:00] LABS: INR 0.9 (<1.2); Partial Thromboplastin Time 22.6 sec (22.0-30.0)
[2022-07-27] MEDS: FAMOTIDINE 20 MG/2 ML VIAL IV SCH (20:13)
[2022-07-27] MEDS ORDERED: LABETALOL 100 MG TAB PO SCH (21:00)
[2022-07-27] MEDS ORDERED: APIXABAN 5 MG TAB PO SCH (21:00)
[2022-07-28] MEDS: HEPARIN SODIUM 1,000 UN/ML (10ML VL) IV PRN (00:23)
[2022-07-28] MEDS: hydrALAZINE HCL 20 MG/ML 1 ML VIAL IVP PRN ×2 (01:17→13:03)
[2022-07-28] MEDS: ACETAMINOPHEN TAB 325 MG TAB PO PRN (04:18)
--- NOTE | 2022-07-28 05:46 | P.CRDCN ---
History of Present Illness Consult date: 07/28/22 Chief complaint: Shortness of breath History of present illness: The patient is a pleasant 41-year-old female patient with a past medical history significant for overweight as well as hypertension and dyslipidemia and also history of pulmonary embolism currently not on any oral anticoagulation as well as history of stroke and also history of GI bleeding. We requested to see the patient as a consult for shortness of breath. The patient supposed to be on a blood pressure medications but she has not been taking the medications for insurance issues. She has been experiencing shortness of breath associated with cough and sputum production for the last few weeks. She was seen at urgent care where she was prescribed antibiotic with no improvement. The antibiotic was changed into something else also with no improvement. She decided to come to the emergency department for further evaluation. The shortness of breath did not get better for that reason she decided to come. No pain in the chest when she presented to the hospital. No dizziness or lightheadedness and no feeling of heart racing or fluttering or presyncope or syncope. Further investigation was performed including EKG showed sinus rhythm with nonspecific ST and T wave abnormalities. Chest x-ray showed no acute abnormalities besides chronic changes. D-dimer came in to be elevated and subsequently CTA of the chest was performed and showed no pulmonary embolism. Please note that her pressure was elevated above 200 when she presented to the hospital and she has not been taking any blood pressure medications. The first set of troponin came in to be unremarkable but the second set came to be slightly elevated. No history of coronary artery disease or coronary revascularization in the past. She was euvolemic when she was seen and evaluated. She was seen by the pulmonary service and she was diagnosed with COPD exacerbation as well as a component of pneumonia. Past Medical History Past Medical History: CVA/TIA, Deep Vein Thrombosis (DVT), GERD/Reflux, GI Bleed, Hypertension, Pneumonia, Pulmonary Embolus (PE), Renal Disease, Thyroid Disorder Additional Past Medical History / Comment(s): Pt states she was just treated with antibiotics for L lower leg cellulitis and stated it was gone morning of 11/04/19 then last night she noticed it was back and looked worse to her. Other hx: Bilateral PEs, DVT-pt thinks bilaterally, TIA, pt is currently being worked up for lupus, CKD stage II-R kidney atrophy, bronchitis, stomach ulcer, upper and lower GI bleeds, diverticular disease, palpitations, hypothyroid. History of Any Multi-Drug Resistant Organisms: None Reported Past Surgical History: Section, Cholecystectomy Additional Past Surgical History / Comment(s): 11/04/19 lap sharyn, EGD, colonoscopy, C-SEC X 2, sinus surgery, D&C Past Anesthesia/Blood Transfusion Reactions: No Reported Reaction Past Psychological History: Bipolar, Depression Additional Psychological History / Comment(s): Pt resides with her father and his first exspouse. Pt is independent. Smoking Status: Current every day smoker Past Alcohol Use History: None Reported Additional Past Alcohol Use History / Comment(s): SMOKES 1 PPD SINCE AGE 19 Past Drug Use History: None Reported - Past Family History Mother Family Medical History: No Reported History Additional Family Medical History / Comment(s): Mother is healthy Father Family Medical History: COPD, Coronary Artery Disease (CAD) Additional Family Medical History / Comment(s): Father was born with polio. He has had CABG Medications and Allergies Home Medications Medication Instructions Recorded Confirmed Type Albuterol Inhaler [Ventolin Hfa 1 - 2 puff INHALATION RT-Q6H PRN 07/27/22 07/27/22 History Inhaler] Albuterol Nebulized [Ventolin 2.5 mg INHALATION RT-QID PRN 07/27/22 07/27/22 History Nebulized] Allergies Allergy/AdvReac Type Severity Reaction Status Date / Time Iodinated Contrast Media Allergy Severe Anaphylaxis Verified 07/27/22 12:15 Physical Exam Vitals: Vital Signs Temp Pulse Pulse Resp BP BP Pulse Ox 07/28/22 04:00 98.0 F 83 18 151/93 95 07/28/22 01:00 98.1 F 99 20 153/101 95 07/28/22 00:00 97.9 F 80 18 136/96 98 07/27/22 20:10 98 F 82 18 180/120 96 07/27/22 19:42 87 07/27/22 19:28 85 07/27/22 16:54 70 18 149/98 96 07/27/22 15:25 93 07/27/22 15:13 90 07/27/22 14:50 82 18 162/111 98 07/27/22 14:04 80 18 170/116 07/27/22 12:59 74 18 197/110 98 07/27/22 11:21 86 07/27/22 11:14 96 07/27/22 10:36 95 18 204/148 96 07/27/22 09:46 98.5 F 109 H 24 223/135 96 Intake and Output 07/27/22 07/27/22 07/28/22 14:59 22:59 06:59 Intake Total 75.875 Balance 75.875 Intake: IV 10 Invasive Line 1 10 Intake, IV Titration 65.875 Amount Heparin Sod,Pork in 0.45% 65.875 NaCl 25,000 unit In 0.45 % NaCl 1 250ml.bag @ 7.8 UNITS/KG/HR 9.906 mls/hr IV .Q24H [facility] Rx#: [id number] Other: Voiding Method Toilet # Voids 1 Weight 127.006 kg 127.006 kg - Constitutional General appearance: no acute distress - Respiratory Respiratory: bilateral: diminished - Cardiovascular Rhythm: regular Abnormal Heart Sounds: systolic murmur Results 07/27/22 10:13 07/27/22 10:13 Cardiac Enzymes 07/27/22 07/27/22 07/27/22 Range/Units 10:13 10:13 15:19 AST 38 H (14-36) U/L Troponin I 0.029 0.035 H* (0.000-0.034) ng/mL Coagulation 07/27/22 07/27/22 07/27/22 Range/Units 10:13 17:24 22:40 PT 9.8 10.0 (9.0-12.0) sec APTT 23.2 22.6 24.9 (22.0-30.0) sec CBC 07/27/22 Range/Units 10:13 WBC 6.9 (3.8-10.6) k/uL RBC 5.28 (3.80-5.40) m/uL Hgb 13.8 (11.4-16.0) gm/dL Hct 42.3 (34.0-46.0) % Plt Count 135 L (150-450) k/uL Comprehensive Metabolic Panel 07/27/22 Range/Units 10:13 Sodium 137 (137-145) mmol/L Potassium 3.8 (3.5-5.1) mmol/L Chloride 104 (98-107) mmol/L Carbon Dioxide 28 (22-30) mmol/L BUN 11 (7-17) mg/dL Creatinine 0.87 (0.52-1.04) mg/dL Glucose 136 H (74-99) mg/dL Calcium 7.8 L (8.4-10.2) mg/dL AST 38 H (14-36) U/L ALT 59 H (4-34) U/L Alkaline Phosphatase 125 (38-126) U/L Total Protein 6.9 (6.3-8.2) g/dL Albumin 3.9 (3.5-5.0) g/dL Current Medications Generic Name Dose Route Start Last Admin Trade Name Freq PRN Reason Stop Dose Admin Acetaminophen 650 mg 07/28/22 02:30 07/28/22 04:18 Acetaminophen Tab 325 Mg Tab PO 650 mg Q4HR PRN Administration Fever and/ or Pain Albuterol/Ipratropium 3 ml 07/27/22 12:00 07/27/22 19:27 Ipratropium-Albuterol 3 Ml Neb INHALATION 3 ml RT-QID EDITH Administration Albuterol/Ipratropium 3 ml 07/27/22 11:39 Ipratropium-Albuterol 3 Ml Neb INHALATION RT-Q2H PRN Shortness Of Breath Or Wheezing Amlodipine Besylate 5 mg 07/28/22 09:00 Amlodipine 5 Mg Tab PO DAILY [facility] Azithromycin 500 mg 07/28/22 12:00 Azithromycin 500 Mg Tab PO 07/29/22 12:01 DAILY@1200 [facility] Protocol Diphenhydramine HCl 25 mg 07/27/22 12:26 Diphenhydramine 50 Mg/Ml 1 Ml Vial IVP Q6HR PRN Allergy Symptoms Famotidine 20 mg 07/27/22 21:00 07/27/22 20:13 Famotidine 20 Mg/2 Ml Vial IV 20 mg Q12HR EDITH Administration Heparin Sodium (Porcine) 0 unit 07/27/22 17:00 07/28/22 00:23 Heparin Sodium 1,000 Un/Ml (10ml Vl) IV 4,000 unit PER PROTOCOL PRN Administration Low PTT Protocol Hydralazine HCl 20 mg 07/27/22 12:25 07/28/22 01:17 Hydralazine Hcl 20 Mg/Ml 1 Ml Vial IVP 20 mg Q4HR PRN Administration Blood Pressure - High Ceftriaxone Sodium 2 gm/ 50 mls @ 100 mls/hr 07/28/22 09:00 Sodium Chloride IVPB 07/31/22 09:29 Q24HR EDITH Protocol Heparin Sodium/Sodium Chloride 250 mls @ 9.906 mls/hr 07/27/22 17:00 07/28/22 00:07 25,000 unit/ Sodium Chloride IV 10.8 units/kg/hr .Q24H EDITH 13.717 mls/hr Titration Protocol 7.8 UNITS/KG/HR Levothyroxine Sodium 100 mcg 07/28/22 06:30 Levothyroxine 100 Mcg Tab PO DAILY@0630 [facility] Methylprednisolone Sodium Succinate 40 mg 07/27/22 12:00 07/27/22 23:36 Methylprednisolone Sod Succi 40 Mg/Ml 1 Ml Vial IV 40 mg Q6HR EDITH Administration Miscellaneous Information 1 each 07/27/22 12:31 Pneumonia Protocol Utilized 1 Each Misc PO ONCE PRN Per Protocol Naloxone HCl 0.2 mg 07/27/22 11:38 Naloxone 0.4 Mg/Ml 1 Ml Vial IV Q2M PRN Opioid Reversal Ondansetron HCl 4 mg 07/27/22 11:38 Ondansetron 4 Mg/2 Ml Vial IVP Q8HR PRN Nausea And Vomiting Sodium Chloride 10 ml 07/27/22 21:00 07/27/22 20:11 Sodium Chloride 0.9% Flush 10 Ml Syringe IV 10 ml BID EDITH Administration Spironolactone 50 mg 07/28/22 09:00 Spironolactone 25 Mg Tab PO DAILY [facility] Intake and Output 07/27/22 07/27/22 07/28/22 14:59 22:59 06:59 Intake Total 75.875 Balance 75.875 Intake: IV 10 Invasive Line 1 10 Intake, IV Titration 65.875 Amount Heparin Sod,Pork in 0.45% 65.875 NaCl 25,000 unit In 0.45 % NaCl 1 250ml.bag @ 7.8 UNITS/KG/HR 9.906 mls/hr IV .Q24H [facility] Rx#: [id number] Other: Voiding Method Toilet # Voids 1 Weight 127.006 kg 127.006 kg Patient Weight 07/28/22 06:59 Weight 127.006 kg 07/27/22 10:13 07/27/22 10:13 Assessment and Plan Assessment: Assessment #1 shortness of breath likely to be multifocal torula related to pneumonia and COPD and hypertension crisis #2 hypertension crisis with hypertension emergency #3 noncompliance with medication #4 history of pulmonary embolism #5 morbid obesity #6 history of stroke #7 history of GI bleeding #8 multiple comorbid conditions #9 smoking #10 evidence of myocardial injury Plan #1 continue heparin for now #2 follow-up on the echocardiogram #3 consider doing coronary angiogram, depends on the results of the echocardiogram #4 DC labetalol and start the patient on carvedilol #5 start the patient on aspirin #6 the patient on hydrochlorothiazide #7 continue the rest of the current medical regimen #8 further recommendation to follow
[2022-07-28] MEDS: carvediloL 6.25 MG TAB PO SCH ×2 (06:04→17:14)
[2022-07-28] MEDS: methylPREDNISolone SOD SUCCI 40 MG/ML 1 ML VIAL IV SCH ×3 (06:04→17:14)
[2022-07-28] MEDS: LEVOTHYROXINE 100 MCG TAB PO SCH (06:04)
[2022-07-28 06:11] LABS: Glucose,Whole Blood 225 mg/dL (70-110)
[2022-07-28] MEDS: INSULIN ASPART (NovoLOG) 100 UNIT/ML VIAL SQ SCH ×4 (06:52→21:04)
--- NOTE | 2022-07-28 06:58 | XR ---
EXAMINATION TYPE: XR chest 2V DATE OF EXAM: 07/28/2022 COMPARISON: 07/27/2022 HISTORY: Chest pain TECHNIQUE: Frontal and lateral views of the chest are obtained. FINDINGS: Continued cardiomegaly with pulmonary venous congestion and scattered interstitial edema improved fro m prior study. Small effusions noted. Infiltrates of other etiology not excluded. The osseous structures are grossly intact. IMPRESSION: 1. Continued cardiomegaly with pulmonary venous congestion and scattered interstitial edema improved from prior study. Small effusions noted. Infiltrates of other etiology not excluded.
[2022-07-28] MEDS: hydroCHLOROthiazide 25 MG TAB PO SCH (08:02)
[2022-07-28] MEDS: amLODIPine 5 MG TAB PO SCH (08:03)
[2022-07-28] MEDS: ASPIRIN 81 MG PO SCH (08:03)
[2022-07-28] MEDS: SPIRONOLACTONE 25 MG TAB PO SCH (08:03)
[2022-07-28] MEDS: FAMOTIDINE 20 MG/2 ML VIAL IV SCH ×2 (08:03→21:04)
[2022-07-28] MEDS: IPRATROPIUM-ALBUTEROL 3 ML NEB INHALATION SCH ×4 (08:07→20:49)
--- NOTE | 2022-07-28 09:47 | CA ---
Transthoracic Echo Report Name: Margarette Hodge Age: 41 Gender: F : 1980 Exam Date: 07/27/2022 13:30 Exam Location: [place] [facility] Ht (in): 67 Wt (lb): 289 Ordering Physician: Sydnee Venegas MD Attending/Referring Phys: [id number], [employer] Professional Trish Stone RDCS Procedure CPT: Indications: chf Cardiac Hx: Technical Quality: Contrast 1: Total Dose (mL): Contrast 2: Total Dose (mL): MEASUREMENTS (Male / Female) Normal Values 2D ECHO LV Diastolic Diameter PLAX 4.3 cm 4.2 - 5.9 / 3.9 - 5.3 cm LV Systolic Diameter PLAX 4.1 cm IVS Diastolic Thickness 1.5 cm 0.6 - 1.0 / 0.6 - 0.9 cm LVPW Diastolic Thickness 1.6 cm 0.6 - 1.0 / 0.6 - 0.9 cm LV Relative Wall Thickness 0.7 RV Internal Dim ED PLAX 3.0 cm LA Systolic Diameter LX 4.9 cm 3.0 - 4.0 / 2.7 - 3.8 cm M-MODE Aortic Root Diameter MM 2.4 cm LA Systolic Diameter MM 4.8 cm LA Ao Ratio MM 2.0 DOPPLER MV Area PHT 3.7 cm??? Mitral E Point Velocity 70.1 cm/s Mitral A Point Velocity 38.3 cm/s Mitral E to A Ratio 1.8 MV Deceleration Time 205.9 ms MV E' Velocity 6.5 cm/s Mitral E to MV E' Ratio 10.8 FINDINGS Left Ventricle Left ventricular ejection fraction is estimated at 55 %. Left ventricular cavity size normal. Left ventricular cavity size normal. Right Ventricle Normal right ventricular size and function. Right ventricular systolic pressure within normal limits. Right Atrium Normal right atrial size. Left Atrium Severely increased left atrial diameter. Mitral Valve Structurally normal mitral valve. Mild mitral regurgitation. Aortic Valve Trileaflet aortic valve. Tricuspid Valve Structurally normal tricuspid valve. Trace to mild tricuspid regurgitation. Pulmonic Valve Structurally normal pulmonic valve. Pericardium Echo free space anterior to the right ventricle likely represents a fat pad. Aorta Normal size aortic root and proximal ascending aorta. CONCLUSIONS Technically difficult study for interpretation Normal left ventricular dimension and systolic function No significant valvular abnormalities Previewed by: Dr. Jonathan Box MD (Electronically Signed) Final Date: 28 July 2022 09:46
[2022-07-28 10:04] LABS: Basophils % (A) 0 %; Eosinophils % (A) 0 %; HGB 13.8 gm/dL (11.4-16.0); Hypochromasia Moderate; Lymphocytes # (A) 0.8 k/uL (1.0-4.8); Lymphocytes % (A) 8 %; MCH 26.2 pg (25.0-35.0); MCHC 32.2 g/dL (31.0-37.0); MCV 81.5 fL (80.0-100.0); Mean Platelet Volume 12.4; Monocytes # (A) 0.3 k/uL (0-1.0); Monocytes % (A) 3 %; Neutrophils % (A) 88 %; Platelet Count 128 k/uL (150-450); RBC 5.27 m/uL (3.80-5.40); RDW 15.9 % (11.5-15.5); WBC 9.1 k/uL (3.8-10.6)
[2022-07-28 10:10] LABS: INR 0.9 (<1.2); Partial Thromboplastin Time 26.9 sec (22.0-30.0)
[2022-07-28 10:25] LABS: Albumin 3.8 g/dL (3.5-5.0); Calcium 8.3 mg/dL (8.4-10.2); Magnesium 2.2 mg/dL (1.6-2.3); Potassium 4.2 mmol/L (3.5-5.1); Total Bilirubin 0.8 mg/dL (0.2-1.3); Total Protein 6.8 g/dL (6.3-8.2)
[2022-07-28 11:52] LABS: Glucose,Whole Blood 168 mg/dL (70-110)
[2022-07-28] MEDS ORDERED: AZITHROMYCIN 500 MG TAB PO SCH (12:00)
[2022-07-28] MEDS: HEPARIN SOD,PORK IN 0.45% NACL 25,000 UNIT in 0.45% NACL 1 250ML.BAG IV SCH (12:23)
--- NOTE | 2022-07-28 13:07 | P.PN ---
Subjective Progress Note Date: 07/28/22 Principal diagnosis: Shortness of breath, and cough. Pulmonary consult dated 07/27/2022. 41-year-old female with a history of CVA, DVT, GERD, GI bleed, hypertension, pneumonia, pulmonary embolism, and thyroid disorder. The patient presents to the emergency department, with complaints of shortness of breath. She apparently is been having shortness of breath for about 2 weeks prior to admission. The patient did have an episode of coronavirus infection a few months ago. She also has a history of pulmonary embolism. She has a nonproductive cough. She denied any fever or chills. No chest congestion. No chest pain or chest discomfort. She apparently did not take her morning dose of Norvasc or Lopressor. She is laying in the emergency room, on stretcher #19. She's on room air. She had oxygen on, but her room air saturation is 96%. White count 6.9, hemoglobin 13.8, hematocrit 42.8, and platelet count 235,000. D-dimer was 2.75. Venous blood gases show pCO2 of 47 and a pH is 7.36. Sodium 137, potassium 3.8, chlorides 104, CO2 28, anion gap 5, BUN 11, creatinine 0.87. AST 38 with an ALT of 59. Troponins were 0.029 and 0.035. N-terminal proBNP was elevated at 2080. She tested negative for influenza A, influenza B, as well as RSV, and coronavirus. Chest x-ray my opinion showed cardiomegaly, and changes consistent with fluid overload/CHF. CT angiogram was negative for pulmonary embolism, showed cardiomegaly, with trace right pleural effusion and findings consistent with CHF, groundglass opacities throughout the right lung, a right lower lobe 1.3 cm pulmonary nodule, and enlarged mediastinal lymph nodes, which may be reactive. In addition she had mild splenomegaly. Progress note dated 07/28/2022. 41-year-old female that we saw yesterday in the emergency department, for a COPD exacerbation/upper respiratory tract infection/bronchitis. She has a history of CVA, DVT, GERD, GI bleed, hypertension, pulmonary embolism, pneumonia, obesity, and thyroid disease. Currently, she is on room air. The patient is not receiving any IV fluids. The patient is on IV heparin. The pro-calcitonin level was low, so the antibiotics were discontinued. We did add Symbicort to her regimen. She is a smoker. White count 9.1, hemoglobin 13.8, hematocrit 43, and platelet count 228,000. Sodium 139, potassium 4.2, chlorides 104, CO2 23, BUN 19, creatinine 0.99. Chest x-ray and our opinion showed changes of CHF, and cardiomegaly. CT angiogram was negative for pulmonary embolism. Objective - Vital Signs Vital signs: Vital Signs Temp 98.2 F 07/28/22 07:58 Pulse 90 07/28/22 12:13 Resp 18 07/28/22 12:13 BP 156/96 07/28/22 12:13 Pulse Ox 95 07/28/22 12:13 FiO2 Intake & Output 07/27/22 07/28/22 07/28/22 18:59 06:59 18:59 Intake Total 75.875 302.576 Balance 75.875 302.576 Weight 127.006 kg 127.006 kg Intake: IV 10 10 Invasive Line 1 10 10 Intake, IV Titration 65.875 174.576 Amount Heparin Sod,Pork in 0.45% 65.875 174.576 NaCl 25,000 unit In 0.45 % NaCl 1 250ml.bag @ 7.8 UNITS/KG/HR 9.906 mls/hr IV .Q24H [facility] Rx#: [id number] Oral 118 Other: Voiding Method Toilet Toilet # Voids 1 - Exam No acute distress, sleeping, arousable, currently on room air. No respiratory distress. No audible wheezing. HEENT examination is grossly unremarkable. Neck supple. Full range of motion. No adenopathy thyromegaly or neck vein distention. Cardiovascular examination reveals regular rhythm rate. S1-S2 normal. No S3 or S4. No discernible murmur noted. Heart rate 90. Heart sounds are distant. Lungs reveal scattered rhonchi. Breath sounds equal. Scattered crackles. No wheezes. Room air saturation 95%. Abdomen obese, no masses or tenderness. Extremities are intact. No cyanosis or clubbing. Trace edema. Skin is without rash or lesion. Neurologic examination is brief but nonfocal. - Labs CBC & Chem 7: 07/28/22 09:00 07/28/22 09:00 Labs: Abnormal Lab Results - Last 24 Hours (Table) 07/27/22 07/28/22 07/28/22 Range/Units 15:19 06:10 09:00 RDW 15.9 H (11.5-15.5) % Plt Count 128 L (150-450) k/uL Neutrophils # 8.0 H (1.3-7.7) k/uL Lymphocytes # 0.8 L (1.0-4.8) k/uL BUN (7-17) mg/dL Glucose (74-99) mg/dL POC Glucose (mg/dL) 225 H (70-110) mg/dL Calcium (8.4-10.2) mg/dL ALT (4-34) U/L Alkaline Phosphatase (38-126) U/L Troponin I 0.035 H* (0.000-0.034) ng/mL 07/28/22 07/28/22 Range/Units 09:00 11:51 RDW (11.5-15.5) % Plt Count (150-450) k/uL Neutrophils # (1.3-7.7) k/uL Lymphocytes # (1.0-4.8) k/uL BUN 19 H (7-17) mg/dL Glucose 156 H (74-99) mg/dL POC Glucose (mg/dL) 168 H (70-110) mg/dL Calcium 8.3 L (8.4-10.2) mg/dL ALT 56 H (4-34) U/L Alkaline Phosphatase 129 H (38-126) U/L Troponin I (0.000-0.034) ng/mL Assessment and Plan Assessment: Shortness of breath, likely multifactorial, in part related to underlying COPD, but also possible CHF. Doubt pneumonia. History of CVA. History of DVT and pulmonary embolism. History of GERD. History of GI bleed. History of hypertension. History of thyroid disorder. History of lower extremity cellulitis. Recent episode of coronavirus infection. Bipolar disorder. Current every day tobacco user. Plan: Plan dated 07/27/2022. The patient was placed back on some of her home medications. In addition, she was given azithromycin and Rocephin for possible pneumonia. We will check a pro-calcitonin level. She was also given updrafts with albuterol sulfate and ipratropium bromide, as well as Solu-Medrol. Additional recommendations and suggestions are forthcoming. Her chest x-ray my opinion looks like CHF. Cardiology should be asked to see this patient. She should have an echocardiogram. Additional recommendations and suggestions are forthcoming. Prognosis is guarded. Plan dated 07/28/2022. The patient's antibiotics were discontinued, because of pro-calcitonin level was very low. In addition, she was on outpatient antibiotics for some time. We will continue to follow make recommendations along the way. The patient did have Symbicort added to her regimen. She is on no IV fluids. She is on room air. She is not manifesting any signs or symptoms of respiratory distress. She is on IV heparin. Additional recommendations and suggestions are forthcoming. Time with Patient: Less than 30
--- NOTE | 2022-07-28 13:15 | P.PN ---
Subjective Progress Note Date: 07/28/22 Principal diagnosis: sob Patient is feeling better today, she is still not requiring any oxygen. No overnight events. No fevers or chills. No pain currently. She did mention h istory of exertional intermittent chest pain and shortness of breath over the past several weeks. Objective - Vital Signs Vital signs: Vital Signs Temp 98.2 F 07/28/22 07:58 Pulse 90 07/28/22 12:13 Resp 18 07/28/22 12:13 BP 156/96 07/28/22 12:13 Pulse Ox 95 07/28/22 12:13 FiO2 Intake & Output 07/27/22 07/28/22 07/28/22 18:59 06:59 18:59 Intake Total 75.875 302.576 Balance 75.875 302.576 Weight 127.006 kg 127.006 kg Intake: IV 10 10 Invasive Line 1 10 10 Intake, IV Titration 65.875 174.576 Amount Heparin Sod,Pork in 0.45% 65.875 174.576 NaCl 25,000 unit In 0.45 % NaCl 1 250ml.bag @ 7.8 UNITS/KG/HR 9.906 mls/hr IV .Q24H [facility] Rx#: [id number] Oral 118 Other: Voiding Method Toilet Toilet # Voids 1 - Exam Constitutional: No acute distress, conversant, pleasant Eyes:Anicteric sclerae, moist conjunctiva, no lid-lag, PERRLA, ENMT: Oropharynx clear, no erythema, exudates Neck: Supple, FROM, no masses, or JVD, No carotid bruits, No thyromegaly Lungs: Bilateral rhonchi, bibasilar wheezes, Clear to percussion, Normal respiratory effort, no accessory muscle use Cardiovascular: Heart regular in rate and rhythm, No murmurs, gallops, or rubs, No peripheral edema Abdominal: Soft, Nontender, no guarding, rebound or rigidity, Normoactive bowel sounds, No hepatomegaly, No splenomegaly, No palpable mass Skin: Normal temperature, tone, texture, turgor, no induration, No subcutaneous nodules, No rash, lesions, No ulcers Extremities: No digital cyanosis, No clubbing, Pedal pulses intact and symmetrical, Radial pulses intact and symmetrical, No calf tenderness Psychiatric: Alert and oriented to person, place and time, appropriate affect, intact judgement Neuro: Muscles Strength 5/5 in all 4 extremities, Sensation to light touch grossly present throughout, Cranial nerves II-XII grossly intact, no focal sensory deficits - Labs CBC & Chem 7: 07/28/22 09:00 07/28/22 09:00 Labs: Abnormal Lab Results - Last 24 Hours (Table) 07/27/22 07/28/22 07/28/22 Range/Units 15:19 06:10 09:00 RDW 15.9 H (11.5-15.5) % Plt Count 128 L (150-450) k/uL Neutrophils # 8.0 H (1.3-7.7) k/uL Lymphocytes # 0.8 L (1.0-4.8) k/uL BUN (7-17) mg/dL Glucose (74-99) mg/dL POC Glucose (mg/dL) 225 H (70-110) mg/dL Calcium (8.4-10.2) mg/dL ALT (4-34) U/L Alkaline Phosphatase (38-126) U/L Troponin I 0.035 H* (0.000-0.034) ng/mL 07/28/22 07/28/22 Range/Units 09:00 11:51 RDW (11.5-15.5) % Plt Count (150-450) k/uL Neutrophils # (1.3-7.7) k/uL Lymphocytes # (1.0-4.8) k/uL BUN 19 H (7-17) mg/dL Glucose 156 H (74-99) mg/dL POC Glucose (mg/dL) 168 H (70-110) mg/dL Calcium 8.3 L (8.4-10.2) mg/dL ALT 56 H (4-34) U/L Alkaline Phosphatase 129 H (38-126) U/L Troponin I (0.000-0.034) ng/mL Assessment and Plan Plan: Shortness of breath likely secondary to right lower lobe pneumonia Empiric antibiotics discotninued as her procal was negative. Pulm following. Follow blood cultures 2 Acute asthma/COPD exacerbation Steroids IV Bronchodilators Non ST elevation myocardial infarction Elevated trops Elevated proBNP She does not have a heart history, Seen by cardiology, started on heparin, coreg. Check echocardiogram Hypertensive urgency D/c labetalol per cardio, started on coreg. Continue amlodipine, aldactone, HCTZ IV hydralazine when necessary for systolic blood pressure more than 180 Hx of DVT and PE, GERD/Reflux, Hypothyroidism Chronic resume meds Anticipated discharge: depending on clinical course
[2022-07-28 16:41] LABS: Glucose,Whole Blood 184 mg/dL (70-110)
[2022-07-28 20:13] LABS: Glucose,Whole Blood 153 mg/dL (70-110)
[2022-07-28] MEDS: SYMBICORT 160-4.5 MCG INHALER INHALATION SCH (20:50)
[2022-07-29] MEDS: HEPARIN SODIUM 1,000 UN/ML (10ML VL) IV PRN (00:09)
[2022-07-29] MEDS: methylPREDNISolone SOD SUCCI 40 MG/ML 1 ML VIAL IV SCH ×3 (00:10→12:36)
[2022-07-29] MEDS: HEPARIN SOD,PORK IN 0.45% NACL 25,000 UNIT in 0.45% NACL 1 250ML.BAG IV SCH (00:11)
[2022-07-29] MEDS: ACETAMINOPHEN TAB 325 MG TAB PO PRN (03:28)
[2022-07-29] MEDS: hydrALAZINE HCL 20 MG/ML 1 ML VIAL IVP PRN ×4 (03:28→17:21)
[2022-07-29 04:14] LABS: Basophils % (A) 0 %; Eosinophils % (A) 0 %; HGB 13.9 gm/dL (11.4-16.0); Hypochromasia Slight; Lymphocytes # (A) 1.1 k/uL (1.0-4.8); Lymphocytes % (A) 7 %; MCH 26.2 pg (25.0-35.0); MCHC 32.4 g/dL (31.0-37.0); MCV 80.9 fL (80.0-100.0); Mean Platelet Volume 9.3; Monocytes # (A) 0.5 k/uL (0-1.0); Monocytes % (A) 3 %; Neutrophils # (A) 12.9 k/uL (1.3-7.7); Neutrophils % (A) 89 %; Platelet Count 187 k/uL (150-450); RBC 5.32 m/uL (3.80-5.40); RDW 15.8 % (11.5-15.5); WBC 14.5 k/uL (3.8-10.6)
[2022-07-29 05:00] LABS: Calcium 8.6 mg/dL (8.4-10.2); Magnesium 2.4 mg/dL (1.6-2.3); Potassium 4.3 mmol/L (3.5-5.1)
--- NOTE | 2022-07-29 06:13 | P.PN ---
Subjective Progress Note Date: 07/29/22 Principal diagnosis: Hypertension emergency The patient is a pleasant 41-year-old female patient with a past medical history significant for overweight as well as hypertension and dyslipidemia and also history of pulmonary embolism currently not on any oral anticoagulation as well as history of stroke and also history of GI bleeding. We requested to see the patient as a consult for shortness of breath. The patient supposed to be on a blood pressure medications but she has not been taking the medications for insurance issues. She has been experiencing shortness of breath associated with cough and sputum production for the last few weeks. She was seen at urgent care where she was prescribed antibiotic with no improvement. The antibiotic was changed into something else also with no improvement. She decided to come to the emergency department for further evaluation. The shortness of breath did not get better for that reason she decided to come. No pain in the chest when she presented to the hospital. No dizziness or lightheadedness and no feeling of heart racing or fluttering or presyncope or syncope. Further investigation was performed including EKG showed sinus rhythm with nonspecific ST and T wave abnormalities. Chest x-ray showed no acute abnormalities besides chronic changes. D-dimer came in to be elevated and subsequently CTA of the chest was performed and showed no pulmonary embolism. Please note that her pressure was elevated above 200 when she presented to the hospital and she has not been taking any blood pressure medications. The first set of troponin came in to be unremarkable but the second set came to be slightly elevated. No history of coronary artery disease or coronary revascularization in the past. She was euvolemic when she was seen and evaluated. She was seen by the pulmonary service and she was diagnosed with COPD exacerbation as well as a component of pneumonia. July 29 The patient was seen and evaluated this morning. The blood pressure is definitely better but continues to be elevated. I'm going to increase the dose of carvedilol from 6.25 mg by mouth twice a day to 12.5 mg by mouth twice a day. She reports no pain in the chest but she continues to have shortness of breath with exertion. No dizziness or lightheadedness and no feeling of heart racing or fluttering and no presyncope or syncope. She underwent only 2 sets of troponin the first one was unremarkable and the second one came in to be slightly abnormal. I'm going to repeat a third set of troponin to assess her troponin trend. Beside that she underwent an echo which revealed normal left ventricle systolic function with no significant wall motion abnormalities concerning for severe underlying coronary artery disease and no significant valvular abnormalities. Her WBC has been increasing as well. Objective - Vital Signs Vital signs: Vital Signs Temp 98.1 F 07/29/22 03:22 Pulse 96 07/29/22 03:22 Resp 22 07/29/22 03:22 BP 166/107 07/29/22 03:22 Pulse Ox 93 L 07/29/22 03:22 FiO2 Intake & Output 07/28/22 07/28/22 07/29/22 06:59 18:59 06:59 Intake Total 75.875 630.684 263.341 Balance 75.875 630.684 263.341 Weight 127.006 kg 139.1 kg Intake: IV 10 20 Invasive Line 1 10 20 Intake, IV Titration 65.875 256.684 263.341 Amount Heparin Sod,Pork in 0.45% 65.875 256.684 263.341 NaCl 25,000 unit In 0.45 % NaCl 1 250ml.bag @ 7.8 UNITS/KG/HR 9.906 mls/hr IV .Q24H [facility] Rx#: [id number] Oral 354 Other: Voiding Method Toilet Toilet Toilet # Voids 1 1 - Constitutional General appearance: Present: no acute distress - Respiratory Respiratory: bilateral: CTA - Cardiovascular Rhythm: regular Heart sounds: normal: S1, S2 Abnormal Heart Sounds: Present: systolic murmur - Labs CBC & Chem 7: 07/29/22 03:53 07/29/22 03:53 Labs: Abnormal Lab Results - Last 24 Hours (Table) 07/28/22 07/28/22 07/28/22 Range/Units 06:10 09:00 09:00 WBC (3.8-10.6) k/uL RDW 15.9 H (11.5-15.5) % Plt Count 128 L (150-450) k/uL Neutrophils # 8.0 H (1.3-7.7) k/uL Lymphocytes # 0.8 L (1.0-4.8) k/uL APTT (22.0-30.0) sec Sodium (137-145) mmol/L BUN 19 H (7-17) mg/dL Creatinine (0.52-1.04) mg/dL Glucose 156 H (74-99) mg/dL POC Glucose (mg/dL) 225 H (70-110) mg/dL Calcium 8.3 L (8.4-10.2) mg/dL Magnesium (1.6-2.3) mg/dL ALT 56 H (4-34) U/L Alkaline Phosphatase 129 H (38-126) U/L 07/28/22 07/28/22 07/28/22 Range/Units 11:51 16:40 20:12 WBC (3.8-10.6) k/uL RDW (11.5-15.5) % Plt Count (150-450) k/uL Neutrophils # (1.3-7.7) k/uL Lymphocytes # (1.0-4.8) k/uL APTT (22.0-30.0) sec Sodium (137-145) mmol/L BUN (7-17) mg/dL Creatinine (0.52-1.04) mg/dL Glucose (74-99) mg/dL POC Glucose (mg/dL) 168 H 184 H 153 H (70-110) mg/dL Calcium (8.4-10.2) mg/dL Magnesium (1.6-2.3) mg/dL ALT (4-34) U/L Alkaline Phosphatase (38-126) U/L 07/28/22 07/29/22 07/29/22 Range/Units 22:59 03:53 03:53 WBC 14.5 H (3.8-10.6) k/uL RDW 15.8 H (11.5-15.5) % Plt Count (150-450) k/uL Neutrophils # 12.9 H (1.3-7.7) k/uL Lymphocytes # (1.0-4.8) k/uL APTT 31.3 H (22.0-30.0) sec Sodium 135 L (137-145) mmol/L BUN 26 H (7-17) mg/dL Creatinine 1.13 H (0.52-1.04) mg/dL Glucose 165 H (74-99) mg/dL POC Glucose (mg/dL) (70-110) mg/dL Calcium (8.4-10.2) mg/dL Magnesium 2.4 H (1.6-2.3) mg/dL ALT (4-34) U/L Alkaline Phosphatase (38-126) U/L 07/29/22 Range/Units 03:53 WBC (3.8-10.6) k/uL RDW (11.5-15.5) % Plt Count (150-450) k/uL Neutrophils # (1.3-7.7) k/uL Lymphocytes # (1.0-4.8) k/uL APTT 68.4 H (22.0-30.0) sec Sodium (137-145) mmol/L BUN (7-17) mg/dL Creatinine (0.52-1.04) mg/dL Glucose (74-99) mg/dL POC Glucose (mg/dL) (70-110) mg/dL Calcium (8.4-10.2) mg/dL Magnesium (1.6-2.3) mg/dL ALT (4-34) U/L Alkaline Phosphatase (38-126) U/L Microbiology - Last 24 Hours (Table) 07/28/22 12:37 Sputum Culture - Preliminary Sputum 07/27/22 11:51 Blood Culture - Preliminary Blood No Growth after 24 hours 07/27/22 12:00 Blood Culture - Preliminary Blood No Growth after 24 hours Assessment and Plan Assessment: Assessment #1 shortness of breath likely to be multifocal torula related to pneumonia and COPD and hypertension crisis #2 hypertension crisis with hypertension emergency #3 noncompliance with medication #4 history of pulmonary embolism #5 morbid obesity #6 history of stroke #7 history of GI bleeding #8 multiple comorbid conditions #9 smoking #10 evidence of myocardial injury Plan #1 increase the dose of carvedilol #2 continue aspirin #3 add Lipitor at 40 mg by mouth daily at bedtime #4 DC heparin since it has been more than 48 hours #5 follow-up with the troponin trend #6 the echo was reviewed and showed preserved left ventricle systolic function #7 increase the dose of carvedilol #8 follow-up with the patient
[2022-07-29 06:18] LABS: Glucose,Whole Blood 143 mg/dL (70-110)
[2022-07-29] MEDS: INSULIN ASPART (NovoLOG) 100 UNIT/ML VIAL SQ SCH ×4 (06:24→20:30)
[2022-07-29] MEDS: LEVOTHYROXINE 100 MCG TAB PO SCH (06:24)
[2022-07-29] MEDS: IPRATROPIUM-ALBUTEROL 3 ML NEB INHALATION SCH ×5 (07:20→20:56)
[2022-07-29] MEDS: SYMBICORT 160-4.5 MCG INHALER INHALATION SCH ×3 (07:20→20:56)
[2022-07-29] MEDS: carvediloL 12.5 MG TAB PO SCH ×2 (08:01→17:21)
[2022-07-29] MEDS: ASPIRIN 81 MG PO SCH (08:01)
[2022-07-29] MEDS: hydroCHLOROthiazide 25 MG TAB PO SCH (08:01)
[2022-07-29] MEDS: ATORVASTATIN 40 MG TAB PO SCH (08:01)
[2022-07-29] MEDS: SPIRONOLACTONE 25 MG TAB PO SCH (08:01)
[2022-07-29] MEDS: amLODIPine 5 MG TAB PO SCH (08:02)
[2022-07-29] MEDS: FAMOTIDINE 20 MG/2 ML VIAL IV SCH ×2 (08:02→20:31)
--- NOTE | 2022-07-29 11:47 | P.PN ---
Subjective Progress Note Date: 07/29/22 Principal diagnosis: Shortness of breath, and cough. Pulmonary consult dated 07/27/2022. 41-year-old female with a history of CVA, DVT, GERD, GI bleed, hypertension, pneumonia, pulmonary embolism, and thyroid disorder. The patient presents to the emergency department, with complaints of shortness of breath. She apparently is been having shortness of breath for about 2 weeks prior to admission. The patient did have an episode of coronavirus infection a few months ago. She also has a history of pulmonary embolism. She has a nonproductive cough. She denied any fever or chills. No chest congestion. No chest pain or chest discomfort. She apparently did not take her morning dose of Norvasc or Lopressor. She is laying in the emergency room, on stretcher #19. She's on room air. She had oxygen on, but her room air saturation is 96%. White count 6.9, hemoglobin 13.8, hematocrit 42.8, and platelet count 235,000. D-dimer was 2.75. Venous blood gases show pCO2 of 47 and a pH is 7.36. Sodium 137, potassium 3.8, chlorides 104, CO2 28, anion gap 5, BUN 11, creatinine 0.87. AST 38 with an ALT of 59. Troponins were 0.029 and 0.035. N-terminal proBNP was elevated at 2080. She tested negative for influenza A, influenza B, as well as RSV, and coronavirus. Chest x-ray my opinion showed cardiomegaly, and changes consistent with fluid overload/CHF. CT angiogram was negative for pulmonary embolism, showed cardiomegaly, with trace right pleural effusion and findings consistent with CHF, groundglass opacities throughout the right lung, a right lower lobe 1.3 cm pulmonary nodule, and enlarged mediastinal lymph nodes, which may be reactive. In addition she had mild splenomegaly. Progress note dated 07/28/2022. 41-year-old female that we saw yesterday in the emergency department, for a COPD exacerbation/upper respiratory tract infection/bronchitis. She has a history of CVA, DVT, GERD, GI bleed, hypertension, pulmonary embolism, pneumonia, obesity, and thyroid disease. Currently, she is on room air. The patient is not receiving any IV fluids. The patient is on IV heparin. The pro-calcitonin level was low, so the antibiotics were discontinued. We did add Symbicort to her regimen. She is a smoker. White count 9.1, hemoglobin 13.8, hematocrit 43, and platelet count 228,000. Sodium 139, potassium 4.2, chlorides 104, CO2 23, BUN 19, creatinine 0.99. Chest x-ray and our opinion showed changes of CHF, and cardiomegaly. CT angiogram was negative for pulmonary embolism. Progress note dated 07/29/2022. 41-year-old female seen in consultation 2 days ago. She seen today in room 366. Currently, she is on room air. No IV fluids. She is feeling better from the pulmonary standpoint. Her only complaint today is that her hands are swollen. She has a history of CVA, DVT, GERD, GI bleed, hypertension, pulmonary embolism, pneumonia, obesity, and thyroid disease. White count 14.5, hemoglobin 13.9, hematocrit 43, and platelet count 287,000. PTT was 68.4. Sodium 135, potassium 4.3, chlorides 104, CO2 25, BUN 26, and creatinine 1.13. Blood and sputum sampling has been negative. Chest x-ray continues to show a pattern of CHF. Objective - Vital Signs Vital signs: Vital Signs Temp 97.9 F 07/29/22 07:57 Pulse 96 07/29/22 11:12 Resp 18 07/29/22 09:55 BP 168/115 07/29/22 07:57 Pulse Ox 98 07/29/22 07:57 FiO2 Intake & Output 07/28/22 07/29/22 07/29/22 18:59 06:59 18:59 Intake Total 630.684 263.341 Balance 630.684 263.341 Weight 139.1 kg Intake: IV 20 Invasive Line 1 20 Intake, IV Titration 256.684 263.341 Amount Heparin Sod,Pork in 0.45% 256.684 263.341 NaCl 25,000 unit In 0.45 % NaCl 1 250ml.bag @ 7.8 UNITS/KG/HR 9.906 mls/hr IV .Q24H [facility] Rx#: [id number] Oral 354 Other: Voiding Method Toilet Toilet Toilet # Voids 1 - Exam No acute distress, sleeping, arousable, currently on room air. No respiratory distress. No audible wheezing. HEENT examination is grossly unremarkable. Neck supple. Full range of motion. No adenopathy thyromegaly or neck vein distention. Cardiovascular examination reveals regular rhythm rate. S1-S2 normal. No S3 or S4. No discernible murmur noted. Heart rate 96. Heart sounds are distant. Lungs reveal scattered rhonchi. Breath sounds equal. Scattered crackles. No wheezes. Room air saturation 98 %. Abdomen obese, no masses or tenderness. Extremities are intact. No cyanosis or clubbing. Trace edema. Skin is without rash or lesion. Neurologic examination is brief but nonfocal. - Labs CBC & Chem 7: 07/29/22 03:53 07/29/22 03:53 Labs: Abnormal Lab Results - Last 24 Hours (Table) 07/28/22 07/28/22 07/28/22 Range/Units 11:51 16:40 20:12 WBC (3.8-10.6) k/uL RDW (11.5-15.5) % Neutrophils # (1.3-7.7) k/uL APTT (22.0-30.0) sec Sodium (137-145) mmol/L BUN (7-17) mg/dL Creatinine (0.52-1.04) mg/dL Glucose (74-99) mg/dL POC Glucose (mg/dL) 168 H 184 H 153 H (70-110) mg/dL Magnesium (1.6-2.3) mg/dL 07/28/22 07/29/22 07/29/22 Range/Units 22:59 03:53 03:53 WBC 14.5 H (3.8-10.6) k/uL RDW 15.8 H (11.5-15.5) % Neutrophils # 12.9 H (1.3-7.7) k/uL APTT 31.3 H (22.0-30.0) sec Sodium 135 L (137-145) mmol/L BUN 26 H (7-17) mg/dL Creatinine 1.13 H (0.52-1.04) mg/dL Glucose 165 H (74-99) mg/dL POC Glucose (mg/dL) (70-110) mg/dL Magnesium 2.4 H (1.6-2.3) mg/dL 07/29/22 07/29/22 Range/Units 03:53 06:16 WBC (3.8-10.6) k/uL RDW (11.5-15.5) % Neutrophils # (1.3-7.7) k/uL APTT 68.4 H (22.0-30.0) sec Sodium (137-145) mmol/L BUN (7-17) mg/dL Creatinine (0.52-1.04) mg/dL Glucose (74-99) mg/dL POC Glucose (mg/dL) 143 H (70-110) mg/dL Magnesium (1.6-2.3) mg/dL Microbiology - Last 24 Hours (Table) 07/28/22 12:37 Gram Stain - Preliminary Sputum Sputum Culture - Preliminary 07/27/22 11:51 Blood Culture - Preliminary Blood No Growth after 24 hours 07/27/22 12:00 Blood Culture - Preliminary Blood No Growth after 24 hours Assessment and Plan Assessment: Shortness of breath, likely multifactorial, in part related to underlying COPD, but also possible CHF. Doubt pneumonia. History of CVA. History of DVT and pulmonary embolism. History of GERD. History of GI bleed. History of hypertension. History of thyroid disorder. History of lower extremity cellulitis. Recent episode of coronavirus infection. Bipolar disorder. Current every day tobacco user. Plan: Plan dated 07/27/2022. The patient was placed back on some of her home medications. In addition, she was given azithromycin and Rocephin for possible pneumonia. We will check a pro-calcitonin level. She was also given updrafts with albuterol sulfate and ipratropium bromide, as well as Solu-Medrol. Additional recommendations and suggestions are forthcoming. Her chest x-ray my opinion looks like CHF. Cardiology should be asked to see this patient. She should have an echocardiogram. Additional recommendations and suggestions are forthcoming. Prognosis is guarded. Plan dated 07/28/2022. The patient's antibiotics were discontinued, because of pro-calcitonin level was very low. In addition, she was on outpatient antibiotics for some time. We will continue to follow make recommendations along the way. The patient did have Symbicort added to her regimen. She is on no IV fluids. She is on room a ir. She is not manifesting any signs or symptoms of respiratory distress. She is on IV heparin. Additional recommendations and suggestions are forthcoming. Plan dated 07/29/2022. Clinically, the patient's feeling better. She feels less short of breath. She continues on Symbicort, albuterol sulfate, ipratropium bromide, and Solu-Medrol. No active infection at this time. We will continue to follow make recommendations along the way. Prognosis is guarded. She is being followed by cardiology as well. Time with Patient: Less than 30
[2022-07-29 12:06] LABS: Glucose,Whole Blood 206 mg/dL (70-110)
--- NOTE | 2022-07-29 12:37 | P.PN ---
Subjective Progress Note Date: 07/29/22 Principal diagnosis: sob Patient breathing has gotten better today however she is complaining from increased swelling in her face and bilateral arms. No fevers or chills. No cou gh. No chest pain. Objective - Vital Signs Vital signs: Vital Signs Temp 97.9 F 07/29/22 07:57 Pulse 96 07/29/22 11:12 Resp 18 07/29/22 09:55 BP 168/115 07/29/22 07:57 Pulse Ox 98 07/29/22 07:57 FiO2 Intake & Output 07/28/22 07/29/22 07/29/22 18:59 06:59 18:59 Intake Total 630.684 263.341 Balance 630.684 263.341 Weight 139.1 kg Intake: IV 20 Invasive Line 1 20 Intake, IV Titration 256.684 263.341 Amount Heparin Sod,Pork in 0.45% 256.684 263.341 NaCl 25,000 unit In 0.45 % NaCl 1 250ml.bag @ 7.8 UNITS/KG/HR 9.906 mls/hr IV .Q24H [facility] Rx#: [id number] Oral 354 Other: Voiding Method Toilet Toilet Toilet # Voids 1 - Exam Constitutional: No acute distress, conversant, pleasant Eyes:Anicteric sclerae, moist conjunctiva, no lid-lag, PERRLA, ENMT: Oropharynx clear, no erythema, exudates Neck: Supple, FROM, no masses, or JVD, No carotid bruits, No thyromegaly Lungs: Bilateral rhonchi, bibasilar wheezes, Clear to percussion, Normal respiratory effort, no accessory muscle use Cardiovascular: Heart regular in rate and rhythm, No murmurs, gallops, or rubs, No peripheral edema Abdominal: Soft, Nontender, no guarding, rebound or rigidity, Normoactive bowel sounds, No hepatomegaly, No splenomegaly, No palpable mass Skin: Normal temperature, tone, texture, turgor, no induration, No subcutaneous nodules, No rash, lesions, No ulcers Extremities: No digital cyanosis, No clubbing, Pedal pulses intact and symmetrical, Radial pulses intact and symmetrical, No calf tenderness Psychiatric: Alert and oriented to person, place and time, appropriate affect, intact judgement Neuro: Muscles Strength 5/5 in all 4 extremities, Sensation to light touch grossly present throughout, Cranial nerves II-XII grossly intact, no focal sensory deficits - Labs CBC & Chem 7: 07/29/22 03:53 07/29/22 03:53 Labs: Abnormal Lab Results - Last 24 Hours (Table) 07/28/22 07/28/22 07/28/22 Range/Units 16:40 20:12 22:59 WBC (3.8-10.6) k/uL RDW (11.5-15.5) % Neutrophils # (1.3-7.7) k/uL APTT 31.3 H (22.0-30.0) sec Sodium (137-145) mmol/L BUN (7-17) mg/dL Creatinine (0.52-1.04) mg/dL Glucose (74-99) mg/dL POC Glucose (mg/dL) 184 H 153 H (70-110) mg/dL Magnesium (1.6-2.3) mg/dL 07/29/22 07/29/22 07/29/22 Range/Units 03:53 03:53 03:53 WBC 14.5 H (3.8-10.6) k/uL RDW 15.8 H (11.5-15.5) % Neutrophils # 12.9 H (1.3-7.7) k/uL APTT 68.4 H (22.0-30.0) sec Sodium 135 L (137-145) mmol/L BUN 26 H (7-17) mg/dL Creatinine 1.13 H (0.52-1.04) mg/dL Glucose 165 H (74-99) mg/dL POC Glucose (mg/dL) (70-110) mg/dL Magnesium 2.4 H (1.6-2.3) mg/dL 07/29/22 07/29/22 Range/Units 06:16 11:53 WBC (3.8-10.6) k/uL RDW (11.5-15.5) % Neutrophils # (1.3-7.7) k/uL APTT (22.0-30.0) sec Sodium (137-145) mmol/L BUN (7-17) mg/dL Creatinine (0.52-1.04) mg/dL Glucose (74-99) mg/dL POC Glucose (mg/dL) 143 H 206 H (70-110) mg/dL Magnesium (1.6-2.3) mg/dL Microbiology - Last 24 Hours (Table) 07/28/22 12:37 Gram Stain - Preliminary Sputum Sputum Culture - Preliminary 07/27/22 11:51 Blood Culture - Preliminary Blood No Growth after 24 hours 07/27/22 12:00 Blood Culture - Preliminary Blood No Growth after 24 hours Assessment and Plan Plan: Shortness of breath likely secondary to right lower lobe pneumonia Empiric antibiotics discotninued as her procal was negative. Pulm following. Sputum and blood cultures NGTD Acute asthma/COPD exacerbation Steroids IV---switch to oral 07/[address] elevation myocardial infarction Elevated trops Elevated proBNP She does not have a heart history, D/w dr Box, she was treated with heparin gtt for 48hrs Continue coreg. Add lipitor Check echocardiogram Will give one dose of IV lasix Hypertensive urgency D/c home labetalol per cardio, started on coreg. Continue amlodipine, aldactone, HCTZ IV hydralazine when necessary for systolic blood pressure more than 180 BP better Headaches Will give one time dose of tramadol, tylenol did not work Hx of DVT and PE, GERD/Reflux, Hypothyroidism Chronic resume meds Anticipated discharge: in am
[2022-07-29] MEDS ORDERED: traMADol 50 MG TAB PO STA (12:38)
[2022-07-29] MEDS ORDERED: FUROSEMIDE 10 MG/ML 2 ML VIAL IV ONE (12:38)
[2022-07-29 16:54] LABS: Glucose,Whole Blood 149 mg/dL (70-110)
[2022-07-29 20:16] LABS: Glucose,Whole Blood 173 mg/dL (70-110)
[2022-07-30 03:59] VITALS: RESP 16
[2022-07-30] MEDS: hydrALAZINE HCL 20 MG/ML 1 ML VIAL IVP PRN (04:01)
[2022-07-30] MEDS: carvediloL 12.5 MG TAB PO SCH (05:34)
[2022-07-30] MEDS: LEVOTHYROXINE 100 MCG TAB PO SCH (05:34)
[2022-07-30] MEDS: ACETAMINOPHEN TAB 325 MG TAB PO PRN (05:34)
[2022-07-30 06:32] LABS: Glucose,Whole Blood 118 mg/dL (70-110)
[2022-07-30] MEDS: INSULIN ASPART (NovoLOG) 100 UNIT/ML VIAL SQ SCH ×2 (06:42→11:40)
[2022-07-30 07:57] LABS: Basophils % (A) 0 %; Eosinophils % (A) 0 %; HGB 13.6 gm/dL (11.4-16.0); Hypochromasia Slight; Lymphocytes # (A) 1.9 k/uL (1.0-4.8); Lymphocytes % (A) 23 %; MCH 26.4 pg (25.0-35.0); MCHC 32.3 g/dL (31.0-37.0); MCV 81.6 fL (80.0-100.0); Mean Platelet Volume 8.6; Monocytes # (A) 0.4 k/uL (0-1.0); Monocytes % (A) 5 %; Neutrophils # (A) 5.6 k/uL (1.3-7.7); Neutrophils % (A) 69 %; Platelet Count 158 k/uL (150-450); RBC 5.15 m/uL (3.80-5.40); RDW 15.6 % (11.5-15.5); WBC 8.1 k/uL (3.8-10.6)
[2022-07-30 08:08] LABS: Calcium 8.5 mg/dL (8.4-10.2); Magnesium 2.2 mg/dL (1.6-2.3); Potassium 3.9 mmol/L (3.5-5.1)
[2022-07-30] MEDS: SYMBICORT 160-4.5 MCG INHALER INHALATION SCH (08:54)
[2022-07-30] MEDS: IPRATROPIUM-ALBUTEROL 3 ML NEB INHALATION SCH ×2 (08:54→12:38)
[2022-07-30] MEDS ORDERED: predniSONE 20 MG TAB PO SCH (09:00)
[2022-07-30] MEDS: FAMOTIDINE 20 MG/2 ML VIAL IV SCH (09:45)
[2022-07-30] MEDS: ATORVASTATIN 40 MG TAB PO SCH (09:45)
[2022-07-30] MEDS: ASPIRIN 81 MG PO SCH (09:45)
[2022-07-30] MEDS: SPIRONOLACTONE 25 MG TAB PO SCH (09:45)
[2022-07-30] MEDS: hydroCHLOROthiazide 25 MG TAB PO SCH (09:45)
[2022-07-30] MEDS: amLODIPine 5 MG TAB PO SCH (09:45)
--- NOTE | 2022-07-30 10:50 | P.PN ---
Subjective Progress Note Date: 07/30/22 PROGRESS NOTE The patient is a 41-year-old female with known history of hypertension, prior history of pulmonary embolism who presented with symptoms of progressive dyspnea. She had a cough, nonproductive. She had no evidence of recurrent pulmonary embolism. Her CT scan of the chest showed groundglass opacity with right lower lobe nodule and enlarged mediastinal lymph nodes. She had a prior history of CVA, GI bleeding and hypertension. She is feeling better today. She denies any chest discomfort, dizziness or palpitations. She had an echocardiogram that showed a normal systolic function with mild mitral regurgitation. She has been in sinus mechanism. Her third set of troponin is normal. She had mild elevation of his NT proBNP. Medications: Amlodipine 5 mg daily, aspirin once a day, Lipitor 40 mg daily, Coreg 12-1/2 mg twice a day, levothyroxine, prednisone, spironolactone 50 mg daily, HCTZ 25 mg daily. PHYSICAL EXAMINATION: Blood pressure 150/80 heart rate 80 LUNGS: Decreased breath sounds with no wheezes HEART: Regular rate and rhythm, S1, S2. No S3. No systolic murmur ABDOMEN: Soft, nontender, no organomegaly, obese EXTREMETIES: No edema LAB: BUN 27, creatinine 1.2, hemoglobin 13.6 IMPRESSION: 1. Acute dyspnea with a combination of exacerbation of COPD and possible mild CHF with preserved systolic function 2. History of chronic tobacco use 3. History of hypertension 4. Obesity 5. Prior history of PE PLAN: 1. Continue present antihypertensive regimen 2. Increase physical activity 3. Follow renal functions 4. Depending on her progress further recommendations will be made Objective - Vital Signs Vital signs: Vital Signs Temp 97.9 F 07/30/22 08:00 Pulse 86 07/30/22 09:06 Resp 16 07/30/22 08:00 BP 150/84 07/30/22 08:00 Pulse Ox 95 07/30/22 08:57 FiO2 Intake & Output 07/29/22 07/30/22 07/30/22 18:59 06:59 18:59 Intake Total 660 Balance 660 Weight 137 kg Intake: Oral 660 Other: Voiding Method Toilet Toilet Toilet # Voids 0 1 1 # Bowel Movements 0 - Labs CBC & Chem 7: 07/30/22 07:38 07/30/22 07:38 Labs: Abnormal Lab Results - Last 24 Hours (Table) 07/29/22 07/29/22 07/29/22 Range/Units 11:53 16:52 20:14 RDW (11.5-15.5) % BUN (7-17) mg/dL Creatinine (0.52-1.04) mg/dL Glucose (74-99) mg/dL POC Glucose (mg/dL) 206 H 149 H 173 H (70-110) mg/dL 07/30/22 07/30/22 07/30/22 Range/Units 06:29 07:38 07:38 RDW 15.6 H (11.5-15.5) % BUN 27 H (7-17) mg/dL Creatinine 1.20 H (0.52-1.04) mg/dL Glucose 114 H (74-99) mg/dL POC Glucose (mg/dL) 118 H (70-110) mg/dL Microbiology - Last 24 Hours (Table) 07/27/22 12:00 Blood Culture - Preliminary Blood No Growth after 48 hours 07/27/22 11:51 Blood Culture - Preliminary Blood No Growth after 48 hours 07/28/22 12:37 Gram Stain - Preliminary Sputum Sputum Culture - Preliminary
[2022-07-30 11:35] LABS: Glucose,Whole Blood 166 mg/dL (70-110)
[2022-07-30 12:07] VITALS: BP 150/99; TEMP 98
--- NOTE | 2022-07-30 12:42 | P.PN ---
Subjective Progress Note Date: 07/30/22 41-year-old female patient, morbidly obese, Body mass index of 47, hospitalized for shortness of breath. She has COPD and the chest x-ray also showed cardiomegaly with increased bilateral pulmonary vessel markings. She was given a diagnosis of an acute COPD exacerbation. Echocardiogram was essentially within normal limits. The patient a preserved LV function without any significant valvular abnormalities. The patient was seen by pulmonary and cardiology.. The patient is improved significantly. White cell count today's of 8.1 with a hemoglobin 13.6 and a platelet count of 158. Sodium is 137 BUN is 27 creatinine is 1.2. The patient is otherwise doing well. She is on DuoNeb about treatments [id number]. She is on prednisone burst taper starting with 40 mg and she is also on Symbicort as maintenance. At home, she doesn't have any maintenance inhalers and she uses mainly Ventolin rescue inhaler. Objective - Vital Signs Vital signs: Vital Signs Temp 98.0 F 07/30/22 12:00 Pulse 77 07/30/22 12:00 Resp 16 07/30/22 12:00 BP 150/99 07/30/22 12:00 Pulse Ox 96 07/30/22 12:00 FiO2 Intake & Output 07/29/22 07/30/22 07/30/22 18:59 06:59 18:59 Intake Total 660 Balance 660 Weight 137 kg Intake: Oral 660 Other: Voiding Method Toilet Toilet Toilet # Voids 0 1 1 # Bowel Movements 0 - Exam Constitutional: No acute distress, conversant, pleasant Eyes:Anicteric sclerae, moist conjunctiva, no lid-lag, PERRLA, ENMT: Oropharynx clear, no erythema, exudates Neck: Supple, FROM, no masses, or JVD, No carotid bruits, No thyromegaly Lungs: Bilateral rhonchi, bibasilar wheezes, Clear to percussion, Normal resp iratory effort, no accessory muscle use Cardiovascular: Heart regular in rate and rhythm, No murmurs, gallops, or rubs, No peripheral edema Abdominal: Soft, Nontender, no guarding, rebound or rigidity, Normoactive bowel sounds, No hepatomegaly, No splenomegaly, No palpable mass Skin: Normal temperature, tone, texture, turgor, no induration, No subcutaneous nodules, No rash, lesions, No ulcers Extremities: No digital cyanosis, No clubbing, Pedal pulses intact and symmetrical, Radial pulses intact and symmetrical, No calf tenderness Psychiatric: Alert and oriented to person, place and time, appropriate affect, intact judgement Neuro: Muscles Strength 5/5 in all 4 extremities, Sensation to light touch grossly present throughout, Cranial nerves II-XII grossly intact, no focal sensory deficits - Labs CBC & Chem 7: 07/30/22 07:38 07/30/22 07:38 Labs: Abnormal Lab Results - Last 24 Hours (Table) 07/29/22 07/29/22 07/30/22 Range/Units 16:52 20:14 06:29 RDW (11.5-15.5) % BUN (7-17) mg/dL Creatinine (0.52-1.04) mg/dL Glucose (74-99) mg/dL POC Glucose (mg/dL) 149 H 173 H 118 H (70-110) mg/dL 07/30/22 07/30/22 07/30/22 Range/Units 07:38 07:38 11:33 RDW 15.6 H (11.5-15.5) % BUN 27 H (7-17) mg/dL Creatinine 1.20 H (0.52-1.04) mg/dL Glucose 114 H (74-99) mg/dL POC Glucose (mg/dL) 166 H (70-110) mg/dL Microbiology - Last 24 Hours (Table) 07/27/22 12:00 Blood Culture - Preliminary Blood No Growth after 48 hours 07/27/22 11:51 Blood Culture - Preliminary Blood No Growth after 48 hours 07/28/22 12:37 Gram Stain - Preliminary Sputum Sputum Culture - Preliminary Assessment and Plan Plan: Acute shortness of breath secondary to COPD exacerbation. Shortness of breath is improved considerably. No evidence of pneumonia. No evidence of any viral infection. No evidence of any decompensated heart failure. History of CVA. History of DVT and pulmonary embolism. History of GERD. History of GI bleed. History of hypertension. History of thyroid disorder. History of lower extremity cellulitis. Recent episode of coronavirus infection. Bipolar disorder. Current every day tobacco user. Plan: Discharge patient home on prednisone burst taper starting with 40 mg to be given by, grams every 4 days. Symbicort 2 puffs twice a day, albuterol rescue inhaler on as-needed basis. Smoking cessation counseling. Follow-up in the office. She has taken Covid 19 vaccination. She declines taken the flu shot and the pneumonia shot. Very important for this patient to quit smoking. Smoking cessation counseling was performed.
[2022-07-30] MEDS ORDERED: amLODIPine 5 MG TAB PO STA (12:49)
--- NOTE | 2022-07-30 13:43 | P.DS ---
Providers Date of admission: 07/27/22 12:31 Expected date of discharge: 07/30/22 Attending physician: Sydnee Venegas MD Consults: 07/27/22 12:31 Consult Physician Routine Consulting Provider: Pedro Choi Consult Reason/Comments: dyspnea Do you want consulting provider notified?: Yes 07/27/22 12:33 Consult Physician Routine Consulting Provider: Jonathan Box Consult Reason/Comments: htn, dyspnea Do you want consulting provider notified?: Yes Primary care physician: Stated None Hospital Course: Discharge Diagnosis: Acute on chronic respiratory failure secondary to COPD exacerbation. COPD with acute exacerbation. Patient discharged home on prednisone and Symbicort and to continue Ventolin as needed for wheezing/shortness of breath. Patient to follow up outpatient with multimedia journalist and strongly recommended smoking cessation. Hypertensive urgency, patient is on carvedilol, hydrochlorothiazide, amlodipine, and spironolactone. Patient instructed to monitor blood pressure closely at home and document these findings in a daily log/journal to bring with her to her next doctor's appointment as additional medication changes may be needed to current antihypertensive medication regimen. Elevated troponin. Troponin 0.029, 0.035, and 0.016. Minimal elevation and flat. Believed to be secondary to hypertensive urgency. Echocardiogram revealing EF of 55% with no significant valvular or structural abnormalities reported. Nicotine dependence, recommend smoking cessation. Hospital Course: Patient is a very pleasant 41-year-old female with a past medical history of COPD and continued nicotine dependence. She presented to the emergency department with chief complaint of shortness of breath. She underwent full evaluation in the emergency department. CBC and BMP were unremarkable. Liver profile revealed mild elevation of liver enzymes with AST of 30 and ALT of 59. Troponin was negative at 0.029 and pro-BMP slightly elevated at 2080. Influenza A, RSV, and Covid PCR were all negative. Chest x-ray consistent with COPD and revealing cardiomegaly. D-dimer was elevated at 2.75 and CTA was completed confirming moderate cardiomegaly with trace right pleural effusion and interlobular septal thickening with no evidence of pulmonary emboli. Patient was admitted under the services with consultation to cardiology and pulmonology. Echocardiogram revealing EF of 55% with no significant valvular or structural abnormalities reported. Troponins were trended and patient had mild elevation with initial troponin 0.029 and repeat troponin of 0.035 decreasing back down to 0.016. Elevated troponin believed to be secondary to hypertensive urgency as blood pressures significantly elevated upon arrival to our facility 223/135 with repeat of 204/148. Patient was started on multiple antihypertensive medications including carvedilol, hydrochlorothiazide, amlodipine, and spironolactone. She was treated for COPD exacerbation with nebulizer treatments and steroids. Patient has been cleared by pulmonary for follow-up outpatient in the office and has also been cleared by cardiology for outpatient follow-up. Medically, patient is stable for discharge at this time. Prescription sent for carvedilol, prednisone, hydrochlorothiazide, atorvastatin, amlodipine, spironolactone, aspirin, and Symbicort. Patient encouraged to stop smoking and will need to follow up outpatient with her PCP, [facility], and multimedia journalist. Patient was instructed to monitor blood pressure closely at home and document these findings in a daily log/journal to bring with her to her next doctor's appointment as additional medication changes may be needed to current antihypertensive medication regimen. Physical exam: Patient seen and examined at bedside. Vital signs reviewed and stable. General: Nontoxic, no distress and appears stated age. Derm: Skin warm and dry, normal coloration for ethnicity. Head: Atraumatic, normocephalic and symmetric. Eyes: EOMs intact, no lid lag, and anicteric sclera Mouth: no lip lesions, mucus membranes moist Cardiovascular: regular rate and rhythm with normal S1S2, no murmur, positive posterior tibial pulses bilaterally, and cap refill < 2 seconds. Lungs: Respirations even, regular, and unlabored on room air. Lungs CTA bilaterally, no rhonchi, no rales, no wheezing, and no accessory muscle usage. Abdominal: soft, nontender to palpation, no guarding, no appreciable organomegaly Ext: ROM intact. No gross muscle atrophy, no edema, no contractures Neuro: Speech clear, face symmetrical and CN II-XII grossly intact with no noted focal neuro deficits Psych: Alert and oriented to person, place, time, and situation. Appropriate and pleasant affect. A total of 37 minutes of time were spent preparing this complex discharge summary. Pt was discharged on 07/30/22 at 1:41 PM. Justin Reyes NP rendered care for this patient independently, reviewed the findings and plan as documented in the note above. I did not physically speak with or examine the patient on this date. Patient Condition at Discharge: Stable Plan - Discharge Summary Discharge Rx Participant: No New Discharge Prescriptions: New carvediloL [Coreg*] 12.5 mg PO BID-W/MEALS 30 Days #60 tab predniSONE [Deltasone] 40 mg PO DAILY 4 Days #8 tab hydroCHLOROthiazide [Hydrodiuril] 25 mg PO DAILY 30 Days #30 tab Atorvastatin [Lipitor] 40 mg PO DAILY 30 Days #30 tab amLODIPine [Norvasc] 10 mg PO DAILY 30 Days #30 tab Spironolactone [Aldactone] 50 mg PO DAILY 30 Days #30 tab Aspirin 81 mg PO DAILY 30 Days #30 tab Budesonide-Formot 160-4.5 Mcg [Symbicort 160-4.5 Mcg Inhaler] 2 puff INHALATION RT-BID #1 each Continue Albuterol Nebulized [Ventolin Nebulized] 2.5 mg INHALATION RT-QID PRN PRN Reason: Shortness Of Breath Albuterol Inhaler [Ventolin Hfa Inhaler] 1 - 2 puff INHALATION RT-Q6H PRN PRN Reason: Shortness Of Breath Discharge Medication List Albuterol Inhaler [Ventolin Hfa Inhaler] 1 - 2 puff INHALATION RT-Q6H PRN 07/27/22 [History] Albuterol Nebulized [Ventolin Nebulized] 2.5 mg INHALATION RT-QID PRN 07/27/22 [History] Aspirin 81 mg PO DAILY 30 Days #30 tab 07/30/22 [Rx] Atorvastatin [Lipitor] 40 mg PO DAILY 30 Days #30 tab 07/30/22 [Rx] Budesonide-Formot 160-4.5 Mcg [Symbicort 160-4.5 Mcg Inhaler] 2 puff INHALATION RT-BID #1 each 07/30/22 [Rx] Spironolactone [Aldactone] 50 mg PO DAILY 30 Days #30 tab 07/30/22 [Rx] amLODIPine [Norvasc] 10 mg PO DAILY 30 Days #30 tab 07/30/22 [Rx] carvediloL [Coreg*] 12.5 mg PO BID-W/MEALS 30 Days #60 tab 07/30/22 [Rx] hydroCHLOROthiazide [Hydrodiuril] 25 mg PO DAILY 30 Days #30 tab 07/30/22 [Rx] predniSONE [Deltasone] 40 mg PO DAILY 4 Days #8 tab 07/30/22 [Rx] Follow up Appointment(s)/Referral(s): Jonathan Box MD [STAFF PHYSICIAN] - 1 Week (office will call patient to schedule) Ian Perkins MD [REFERRING] - 1-2 Days Lisa Whelan MD [STAFF PHYSICIAN] - 1 Week (phone busy x2) Patient Instructions/Handouts: How to Stop Smoking (DC), COPD (Chronic Obstructive Pulmonary Disease) (DC), Hypertensive Crisis (DC), Hypertension (DC), Chronic Lung Disease and Infection Prevention (DC) Activity/Diet/Wound Care/Special Instructions: Activity: As tolerated. Take breaks as needed. Diet: Heart healthy and carb consistent diet. Avoid salts, or foods with hidden salts such as canned or boxed foods and frozen dinners. Extra salt makes your heart work harder and traps the fluid in your body for longer. Special Instructions: Take all of your medications as directed and remember to keep all of your doctor's appointments and follow-up as needed. You have been started on multiple medications this hospitalization please thoroughly review your discharge medication list. It is also of utmost importance that you monitor your blood pressures twice daily at home and document these findings in a daily log/journal. You will need to bring these with you to your next doctor's appointments as additional adjustments may be needed to this medication regimen based on your results. Thank you for allowing us to participate in your care, it was truly a pleasure having you for our patient!!! Discharge Disposition: HOME SELF-CARE
[2022-07-30 14:43] VITALS: PULSE 77
[2022-07-31] MEDS ORDERED: amLODIPine 10 MG TAB PO SCH (09:00)
--- NOTE | 2022-08-02 05:58 | CDI ---
Documentation Clarification Form Date: 08/02/22 From: Jade Fowler Admit Date: 07/27/2022 12:31:00 PM Patient Name: Margarette Hodge Visit Number: [id number] Discharge Date: 07/30/2022 02:32:00 PM ATTENTION: The Clinical Documentation Specialists (CDI) and [facility] Coding Staff appreciate your assistance in clarifying documentation. Please respond to the clarification below the line at the bottom and electronically sign. The CDI & [facility] Coding staff will review the response and follow-up if needed. Please note: Queries are made part of the Legal Health Record. If you have any questions, please contact the author of this message via ITS. Dr. Sydnee Venegas, Acute on chronic respiratory with hypoxia is documented in the discharge summary which may lack sufficient clinical evidence/support in the medical record. Additional clarification is requested. History/Risk Factors: AE COPD, HTN w urgency, acute diastolic CHF & CDK 2, AE asthma, morbid obesity w BMI 47.3, hypothyroidism, bipolar, HLD, GERD Clinical Indicators: The patient presents w SOB. ABG (07/27): pH 7.36, [id number], HCO3 26 O2 sats: 07/27-07/28: 95-98 07/29-07/30: 93 x 2, 95-98 Treatment: Oxygen: 1.5 (07/27), standby (07/28) , 2 (07/29), standby (07/29- 07/30) Please clarify if acute on chronic respiratory w hypoxia is a valid diagnosis? [ ] Yes, acute on chronic respiratory w hypoxia is present as evidence by (additional clinical support): [ ] No, acute on chronic respiratory w hypoxia is ruled out [ ] Other (please specify diagnosis) [ ] Unable to determine No, acute on chronic respiratory w hypoxia is ruled out MTDD
== END 2022-07-30 14:32 | disposition home or self-care (01) | DRG 190 ==
LOC: EC 09:44 → 3SCARD 12:31
PROVIDERS: ADMIT Internal Medicine; ATTEND Internal Medicine
DX: J44.1 Chronic obstructive pulmonary disease with (acute) exacerbation (principal); I50.31 Acute diastolic (congestive) heart failure; J45.901 Unspecified asthma with (acute) exacerbation; Z68.42 Body mass index [BMI] 45.0-49.9, adult; I13.10 Hypertensive heart and chronic kidney disease without heart failure, with stage 1 through stage 4 chronic kidney disease, or unspecified chronic kidney disease; E03.9 Hypothyroidism, unspecified; E66.01 Morbid (severe) obesity due to excess calories; F31.9 Bipolar disorder, unspecified; I16.0 Hypertensive urgency; Z20.822 Contact with and (suspected) exposure to COVID-19; N18.2 Chronic kidney disease, stage 2 (mild); I34.0 Nonrheumatic mitral (valve) insufficiency; E78.5 Hyperlipidemia, unspecified; K21.9 Gastro-esophageal reflux disease without esophagitis; T78.3XXA Angioneurotic edema, initial encounter; T50.8X5A Adverse effect of diagnostic agents, initial encounter; R77.8 Other specified abnormalities of plasma proteins; R59.0 Localized enlarged lymph nodes; R16.1 Splenomegaly, not elsewhere classified; R91.1 Solitary pulmonary nodule; R51.9 Headache, unspecified; Z91.14 Patient's other noncompliance with medication regimen; F17.210 Nicotine dependence, cigarettes, uncomplicated; Z71.6 Tobacco abuse counseling; Z79.01 Long term (current) use of anticoagulants; Z79.890 Hormone replacement therapy; Z79.899 Other long term (current) drug therapy; Z86.711 Personal history of pulmonary embolism; Z86.16 Personal history of COVID-19; Z86.718 Personal history of other venous thrombosis and embolism; Z86.73 Personal history of transient ischemic attack (TIA), and cerebral infarction without residual deficits; Z87.11 Personal history of peptic ulcer disease; Y84.2 Radiological procedure and radiotherapy as the cause of abnormal reaction of the patient, or of later complication, without mention of misadventure at the time of the procedure; Z82.5 Family history of asthma and other chronic lower respiratory diseases
CPT/HCPCS: 36415; 71046; 71275; 80048; 80053; 82803; 83605; 83735; 83880; 84145; 84484; 85025; 85379; 85610; 85730; 87040; 87070; 87205; 87636; 93005; 93306; 94640; 94760; 96365; 96366; 96367; 96368; 96375; 96376; 99291

== ENCOUNTER 2022-12-09 20:56 | Emergency (ER) | payer OTHER ==
[2022-12-09 21:09] VITALS: TEMP 97.9
[2022-12-09 21:53] LABS: Appearance,Urine Cloudy (Clear); Bacteria,Urine Rare /hpf; Bilirubin,Urine Negative (Negative); Blood,Urine Small (Negative); Color,Urine Yellow; Glucose,Urine (UA) Negative (Negative); Hyaline Casts,Urine 1 /lpf (0-2); Ketones,Urine Negative (Negative); Leukocyte Esterase,Urine Moderate (Negative); Mucus,Urine Rare /hpf; Nitrite,Urine Negative (Negative); PH, Urine 6.5 (5.0-8.0); Protein,Urine 3+ (Negative); RBC,Urine 7 /hpf (0-5); Squamous Epithelial Cell,Urine 6 /hpf (0-4); WBC,Urine 35 /hpf (0-5)
[2022-12-09] MEDS ORDERED: KETOROLAC 15 MG/ML 1 ML VIAL IVP STA (22:05)
[2022-12-09] MEDS ORDERED: IPRATROPIUM-ALBUTEROL 3 ML NEB INHALATION STA (22:21)
--- NOTE | 2022-12-09 22:56 | ED ---
General Adult HPI - General Chief complaint: Abdominal Pain Stated complaint: Left side abdominal pain Time Seen by Provider: 12/09/22 21:51 Source: patient Mode of arrival: ambulatory Limitations: no limitations - History of Present Illness Initial comments: This is a 41-year-old female with a past medical history including hypertension, PCOS of presents emergency department for left-sided abdominal pain that started as left-sided leg pain that radiated to the left flank. The patient stated this is happened over the last 1 day and stated that it became worse today to the point where she could not give comfortable. The patient was resting in bed comfortably however on evaluation. The patient did state that she previously had kidney stones was unaware if this was similar to her previous episodes and she does not remember what that pain was. The patient denied being dysuria or increased urinary frequency. The patient reported associated nausea but did not vomit. The patient denied any fevers and chills however. The patient stated that the pain was more focused on the left anterior lower abdomen without any posterior flank pain. - Related Data Home Medications Medication Instructions Recorded Confirmed Albuterol Inhaler [Ventolin Hfa 1 - 2 puff INHALATION RT-Q6H PRN 07/27/22 1 09/27/21 Inhaler] Albuterol Nebulized [Ventolin 2.5 mg INHALATION RT-QID PRN 07/27/22 07/27/22 Nebulized] Previous Rx's Medication Instructions Recorded Aspirin 81 mg PO DAILY 30 Days #30 tab 07/30/22 Atorvastatin [Lipitor] 40 mg PO DAILY 30 Days #30 tab 07/30/22 Budesonide-Formot 160-4.5 Mcg 2 puff INHALATION RT-BID #1 each 07/30/22 [Symbicort 160-4.5 Mcg Inhaler] Spironolactone [Aldactone] 50 mg PO DAILY 30 Days #30 tab 07/30/22 amLODIPine [Norvasc] 10 mg PO DAILY 30 Days #30 tab 07/30/22 carvediloL [Coreg*] 12.5 mg PO BID-W/MEALS 30 Days #60 07/30/22 tab hydroCHLOROthiazide [Hydrodiuril] 25 mg PO DAILY 30 Days #30 tab 07/30/22 predniSONE [Deltasone] 40 mg PO DAILY 4 Days #8 tab 07/30/22 Albuterol Nebulized [Ventolin 5 mg INHALATION Q6H PRN 6 Days #75 12/10/22 Nebulized] ml Cephalexin [Keflex] 500 mg PO Q6HR 1 Days #20 cap 12/10/22 Naproxen [EC-Naproxen] 500 mg PO BID #60 tab 12/10/22 methocarbamoL [Robaxin-750] 750 mg PO TID #30 tab 12/10/22 Allergies Allergy/AdvReac Type Severity Reaction Status Date / Time Iodinated Contrast Media Allergy Severe Anaphylaxis Verified 07/27/22 12:15 Review of Systems ROS Statement: Those systems with pertinent positive or pertinent negative responses have been documented in the HPI. ROS Other: All systems not noted in ROS Statement are negative. Past Medical History Past Medical History: CVA/TIA, Deep Vein Thrombosis (DVT), GERD/Reflux, GI Bleed, Hypertension, Pneumonia, Pulmonary Embolus (PE), Renal Disease, Thyroid Disorder Additional Past Medical History / Comment(s): Pt states she was just treated with antibiotics for L lower leg cellulitis and stated it was gone morning of 11/04/19 then last night she noticed it was back and looked worse to her. Other hx: Bilateral PEs, DVT-pt thinks bilaterally, TIA, pt is currently being worked up for lupus, CKD stage II-R kidney atrophy, bronchitis, stomach ulcer, upper and lower GI bleeds, diverticular disease, palpitations, hypothyroid. History of Any Multi-Drug Resistant Organisms: None Reported Past Surgical History: Section, Cholecystectomy Additional Past Surgical History / Comment(s): 11/04/19 lap sharyn, EGD, colonoscopy, C-SEC X 2, sinus surgery, D&C Past Anesthesia/Blood Transfusion Reactions: No Reported Reaction Past Psychological History: Bipolar, Depression Smoking Status: Current every day smoker Past Alcohol Use History: None Reported Past Drug Use History: None Reported - Past Family History Mother Family Medical History: No Reported History Additional Family Medical History / Comment(s): Mother is healthy Father Family Medical History: COPD, Coronary Artery Disease (CAD) Additional Family Medical History / Comment(s): Father was born with polio. He has had CABG General Exam Limitations: no limitations General appearance: alert, in no apparent distress, obese Head exam: Present: atraumatic, normocephalic, normal inspection Eye exam: Present: normal appearance, PERRL Pupils: Present: normal accommodation ENT exam: Present: normal exam, normal oropharynx, mucous membranes moist Neck exam: Present: normal inspection, full ROM Respiratory exam: Present: wheezes (Mild expiratory wheezes heard bilaterally) Cardiovascular Exam: Present: regular rate, normal rhythm, normal heart sounds GI/Abdominal exam: Present: soft, tenderness (Mild tenderness to palpation noted to the left upper quadrant, lower left ribs. TTP over the right lower ribs as well ), normal bowel sounds Extremities exam: Present: normal inspection, full ROM Back exam: Present: normal inspection, full ROM Neurological exam: Present: alert, oriented X3, CN II-XII intact Psychiatric exam: Present: normal affect, normal mood Skin exam: Present: warm, dry Course Vital Signs 12/09/22 12/09/22 12/09/22 21:06 22:00 22:15 Temperature 97.9 F Pulse Rate 84 84 86 Respiratory 20 18 20 Rate Blood Pressure 207/125 179/133 179/133 O2 Sat by Pulse 98 94 L 94 L Oximetry 12/09/22 12/09/22 12/09/22 22:35 22:42 23:00 Temperature Pulse Rate 88 83 82 Respiratory 18 Rate Blood Pressure 165/123 O2 Sat by Pulse 95 Oximetry 12/09/22 12/09/22 12/10/22 23:15 23:30 00:15 Temperature Pulse Rate 83 86 83 Respiratory 20 20 20 Rate Blood Pressure 171/120 165/115 166/110 O2 Sat by Pulse 96 95 96 Oximetry Medical Decision Making - Medical Decision Making Was pt. sent in by a medical professional or institution (, [facility], [employer], urgent care, hospital, or long-term...) When possible be specific @ -No Did you speak to anyone other than the patient for history (EMS, parent, family, police, friend...)? What history was obtained from this source @ -No Did you review nursing and triage notes (agree or disagree)? Why? @ -I reviewed and agree with nursing and triage notes Were old charts reviewed (outside hosp., previous admission, EMS record, old EKG, old radiological studies, urgent care reports/EKG's, long-term records)? Report findings @ -No old charts were reviewed Differential Diagnosis (chest pain, altered mental status, abdominal pain women, abdominal pain men, vaginal bleeding, weakness, fever, dyspnea, syncope, headache, dizziness, GI bleed, back pain, seizure, CVA, palpatations, mental health)? @ -Kidney stone, musculoskeletal strain, cellulitis, contusion EKG interpreted by me (3pts min.). @ -None X-rays interpreted by me (1pt min.). @ -None done CT interpreted by me (1pt min.). @ -CT abdomen and pelvis without contrast was obtained and was interpreted by myself showing prominent enlarged upper abdominal lymph nodes and upper mesenteric fat stranding. The sinuses a nonspecific but may indicated an acute infectious or inflammatory process. There is anterior abdominal wall fat stranding with skin thickening possibly for cellulitis. There was unchanged bilateral pulmonary nodules and right lower lobe peripheral consolidation. There was also hepatosplenomegaly with hepatic steatosis. U/S interpreted by me (1pt. min.). @ -None done What testing was considered but not performed or refused? (CT, X-rays, U/S, labs)? Why? @ -None What meds were considered but not given or refused? Why? @ -None Did you discuss the management of the patient with other professionals (pr ofessionals i.e. , PA, [employer], lab, RT, psych nurse, social work case manager, operations executive, teacher, nursing officer, director case)? Give summary @ -No Was smoking cessation discussed for >3mins.? @ -Yes Was critical care preformed (if so, how long)? @ -No Were there social determinants of health that impacted care today? How? (Homelessness, low income, unemployed, alcoholism, drug addiction, transpor tation, low edu. Level, literacy, decrease access to med. care, fci, rehab)? @ -No Was there de-escalation of care discussed even if they declined (Discuss DNR or withdrawal of care, Hospice)? DNR status @ -No What co-morbidities impacted this encounter? (DM, HTN, Smoking, COPD, CAD, Cancer, CVA, ARF, Chemo, Hep., AIDS, mental health diagnosis, sleep apnea, morbid obesity)? @ -Morbid obesity, hypertension, PCO S, asthma Was patient admitted / discharged? Hospital course, mention meds given and route, prescriptions, significant lab abnormalities, going to OR and other pertinent info. @ -The patient was seen and evaluated emergency department. Physical exam, the patient was resting in bed without any acute distress. Vital signs admission were stable. The patient had tenderness to palpation initially over the left lower abdomen but on reevaluation had tenderness noted to the left lower rib as well as the right lower ribs over the anterior chest. The patient denied of any signs of contusion or erythema or induration of the skin. Laboratory workup was obtained and showed a likely UTI without any other acute findings. There was some blood noted in the urine however computed tomography scan did not show kidney stones. The patient did receive Toradol as well as Norflex and stated that her pain was mildly improved. The patient did have continued coughing and was given a DuoNeb treatment. The patient stated that she has been coughing over last 2 weeks and this is likely consistent with her pain on presentation in that she had reproducible tenderness to palpation to the bilateral anterior lower ribs. The patient likely had muscle strain secondary to this as a cause of her pain and discomfort. The patient was given a prescription for naproxen as well as Robaxin for this pain. The patient was also given a prescription for Keflex to be taken at home for UTI. The patient was also given a prescription for her albuterol solution for refills for her nebulizer at home. The patient was advised to continue to take his medication as prescribed and to follow-up with her primary care physician. The patient remained stable and was agreeable to this and all her questions being answered appropriately. The patient was discharged home in stable condition with her friend. Undiagnosed new problem with uncertain prognosis? @ -No Drug Therapy requiring intensive monitoring for toxicity (Heparin, Nitro, Insulin, Cardizem)? @ -No Were any procedures done? @ -No Diagnosis/symptom? @ -Anterior chest wall muscle strain likely secondary to coughing. Acute, or Chronic, or Acute on Chronic? @ -Acute on chronic Uncomplicated (without systemic symptoms) or Complicated (systemic symptoms)? @ -Uncomplicated Side effects of treatment? @ -No Exacerbation, Progression, or Severe Exacerbation? @ -No Poses a threat to life or bodily function? How? (Chest pain, [place], [place], pneumonia, PE, COPD, DKA, ARF, appy, cholecystitis, CVA, Diverticulitis, Homicidal, Suicidal, threat to staff... and all critical care pts) @ -No Diagnosis/symptom? @ -UTI Acute, or Chronic, or Acute on Chronic? @ -Acute Uncomplicated (without systemic symptoms) or Complicated (systemic symptoms)? @ -Uncomplicated Side effects of treatment? @ -none Exacerbation, Progression, or Severe Exacerbation] @ -no Poses a threat to life or bodily function? @ -no - Lab Data Result diagrams: 12/09/22 22:20 12/09/22 22:20 Lab Results 12/09/22 12/09/22 12/09/22 Range/Units 21:34 21:34 22:20 WBC 7.7 (3.8-10.6) k/uL RBC 5.34 (3.80-5.40) m/uL Hgb 13.8 (11.4-16.0) gm/dL Hct 42.4 (34.0-46.0) % MCV 79.3 L (80.0-100.0) fL MCH 25.9 (25.0-35.0) pg MCHC 32.6 (31.0-37.0) g/dL RDW 15.8 H (11.5-15.5) % Plt Count 133 L (150-450) k/uL MPV 11.2 Neutrophils % 75 % Lymphocytes % 17 % Monocytes % 5 % Eosinophils % 2 % Basophils % 1 % Neutrophils # 5.8 (1.3-7.7) k/uL Lymphocytes # 1.3 (1.0-4.8) k/uL Monocytes # 0.3 (0-1.0) k/uL Eosinophils # 0.2 (0-0.7) k/uL Basophils # 0.0 (0-0.2) k/uL Sodium (137-145) mmol/L Potassium (3.5-5.1) mmol/L Chloride (98-107) mmol/L Carbon Dioxide (22-30) mmol/L Anion Gap mmol/L BUN (7-17) mg/dL Creatinine (0.52-1.04) mg/dL Est GFR (CKD-EPI)AfAm (>60 ml/min/1.73 sqM) Est GFR (CKD-EPI)NonAf (>60 ml/min/1.73 sqM) Glucose (74-99) mg/dL Calcium (8.4-10.2) mg/dL Magnesium (1.6-2.3) mg/dL Total Bilirubin (0.2-1.3) mg/dL AST (14-36) U/L ALT (4-34) U/L Alkaline Phosphatase (38-126) U/L Total Protein (6.3-8.2) g/dL Albumin (3.5-5.0) g/dL Lipase (23-300) U/L Urine Color Yellow Urine Appearance Cloudy H (Clear) Urine pH 6.5 (5.0-8.0) Ur Specific [place] 1.020 (1.001-1.035) Urine Protein 3+ H (Negative) Urine Glucose (UA) Negative (Negative) Urine Ketones Negative (Negative) Urine Blood Small H (Negative) Urine Nitrite Negative (Negative) Urine Bilirubin Negative (Negative) Urine Urobilinogen 2.0 (<2.0) mg/dL Ur Leukocyte Esterase Moderate H (Negative) Urine RBC 7 H (0-5) /hpf Urine WBC 35 H (0-5) /hpf Ur Squamous Epith Cells 6 H (0-4) /hpf Urine Bacteria Rare H (None) /hpf Hyaline Casts 1 (0-2) /lpf Urine Mucus Rare H (None) /hpf Urine HCG, Qual Not Detected (Not Detectd) 12/09/22 Range/Units 22:20 WBC (3.8-10.6) k/uL RBC (3.80-5.40) m/uL Hgb (11.4-16.0) gm/dL Hct (34.0-46.0) % MCV (80.0-100.0) fL MCH (25.0-35.0) pg MCHC (31.0-37.0) g/dL RDW (11.5-15.5) % Plt Count (150-450) k/uL MPV Neutrophils % % Lymphocytes % % Monocytes % % Eosinophils % % Basophils % % Neutrophils # (1.3-7.7) k/uL Lymphocytes # (1.0-4.8) k/uL Monocytes # (0-1.0) k/uL Eosinophils # (0-0.7) k/uL Basophils # (0-0.2) k/uL Sodium 135 L (137-145) mmol/L Potassium 3.9 (3.5-5.1) mmol/L Chloride 99 (98-107) mmol/L Carbon Dioxide 32 H (22-30) mmol/L Anion Gap 4 mmol/L BUN 18 H (7-17) mg/dL Creatinine 1.04 (0.52-1.04) mg/dL Est GFR (CKD-EPI)AfAm 79 (>60 ml/min/1.73 sqM) Est GFR (CKD-EPI)NonAf 68 (>60 ml/min/1.73 sqM) Glucose 136 H (74-99) mg/dL Calcium 8.4 (8.4-10.2) mg/dL Magnesium 2.1 (1.6-2.3) mg/dL Total Bilirubin 1.1 (0.2-1.3) mg/dL AST 36 (14-36) U/L ALT 40 H (4-34) U/L Alkaline Phosphatase 105 (38-126) U/L Total Protein 6.5 (6.3-8.2) g/dL Albumin 3.5 (3.5-5.0) g/dL Lipase 45 (23-300) U/L Urine Color Urine Appearance (Clear) Urine pH (5.0-8.0) Ur Specific [place] (1.001-1.035) Urine Protein (Negative) Urine Glucose (UA) (Negative) Urine Ketones (Negative) Urine Blood (Negative) Urine Nitrite (Negative) Urine Bilirubin (Negative) Urine Urobilinogen (<2.0) mg/dL Ur Leukocyte Esterase (Negative) Urine RBC (0-5) /hpf Urine WBC (0-5) /hpf Ur Squamous Epith Cells (0-4) /hpf Urine Bacteria (None) /hpf Hyaline Casts (0-2) /lpf Urine Mucus (None) /hpf Urine HCG, Qual (Not Detectd) Disposition Clinical Impression: Chest wall muscle strain, UTI (urinary tract infection) Disposition: HOME SELF-CARE Condition: Stable Instructions (If sedation given, give patient instructions): Urinary Tract Infection in Women (DC), Chest Wall Pain (ED) Prescriptions: Naproxen [EC-Naproxen] 500 mg PO BID #60 tab Cephalexin [Keflex] 500 mg PO Q6HR 1 Days #20 cap methocarbamoL [Robaxin-750] 750 mg PO TID #30 tab Albuterol Nebulized [Ventolin Nebulized] 5 mg INHALATION Q6H PRN 6 Days #75 ml PRN Reason: Shortness Of Breath Or Wheezing Is patient prescribed a controlled substance at d/c from ED?: No Referrals: None,Stated [Primary Care Provider] - 1-2 days Time of Disposition: 00:10
[2022-12-09 22:57] LABS: Basophils % (A) 1 %; Eosinophils # (A) 0.2 k/uL (0-0.7); Eosinophils % (A) 2 %; HCT 42.4 % (34.0-46.0); HGB 13.8 gm/dL (11.4-16.0); Lymphocytes # (A) 1.3 k/uL (1.0-4.8); Lymphocytes % (A) 17 %; MCH 25.9 pg (25.0-35.0); MCHC 32.6 g/dL (31.0-37.0); MCV 79.3 fL (80.0-100.0); Mean Platelet Volume 11.2; Monocytes # (A) 0.3 k/uL (0-1.0); Monocytes % (A) 5 %; Neutrophils # (A) 5.8 k/uL (1.3-7.7); Neutrophils % (A) 75 %; Platelet Count 133 k/uL (150-450); RBC 5.34 m/uL (3.80-5.40); RDW 15.8 % (11.5-15.5); WBC 7.7 k/uL (3.8-10.6)
[2022-12-09 23:00] LABS: Albumin 3.5 g/dL (3.5-5.0); Calcium 8.4 mg/dL (8.4-10.2); Magnesium 2.1 mg/dL (1.6-2.3); Potassium 3.9 mmol/L (3.5-5.1); Total Bilirubin 1.1 mg/dL (0.2-1.3); Total Protein 6.5 g/dL (6.3-8.2)
--- NOTE | 2022-12-09 23:08 | CT ---
EXAMINATION TYPE: CT abdomen pelvis wo con CT DLP: 3.3 mGycm, Automated exposure control for dose reduction was used. DATE OF EXAM: 12/09/2022 10:39 PM COMPARISON: CTA chest 07/27/2022 CLINICAL INDICATION:Female, 41 years old with history of Left flank pain, r/o kidney stones; LEFT FLA NK PAIN TECHNIQUE: Axial CT of the abdomen and pelvis. Sagittal and coronal reformats were created on a [employer] workstation. Contrast used: None. Oral contrast used: without Oral Contrast FINDINGS: LOWER CHEST: Cardiomegaly. Left lower lobe 1.1 cm pulmonary nodule (series 201, image 12) and 9 mm pu lmonary nodule (series 201, image 18). Right lower lobe 1.2 cm pulmonary nodule (series 201, image 16 ). Nodules not significantly changed from 07/27/2022 Pleural-based rounded consolidation measures 3.2c m (series 201, image 7), stable from prior. Diffuse groundglass airspace opacities which may relate t o air trapping, improved from prior CT. ABDOMEN LIVER: Hepatomegaly, liver measures 20.5 cm. Low attenuation of the parenchyma consistent with hepati c steatosis. GALLBLADDER AND BILE DUCTS: The gallbladder is surgically absent. PANCREAS: Unremarkable. SPLEEN: Splenomegaly, spleen measures 16.7 cm. ADRENAL GLANDS: Unremarkable. KIDNEYS AND URETERS: Atrophic right kidney. Left kidney without hydronephrosis. PELVIS BLADDER: Incompletely distended but grossly unremarkable. REPRODUCTIVE: Unremarkable. ABDOMEN & PELVIS STOMACH AND BOWEL: Stomach and duodenum are unremarkable. No evidence of bowel obstruction. Colonic bowel is normal. This is unremarkable. PERITONEUM: No evidence of pneumoperitoneum or free fluid. Nonspecific, subtle hazy appearance of the central mesentery and mesentery near the roger hepatis (series 201, image 43-46). VASCULATURE: No evidence of aortic aneurysm. MUSCULOSKELETAL: No acute osseous abnormalities. Asymmetric sclerosis of the right sacroiliac joint. LYMPH NODES: Multiple prominent periaortic, pericaval, and roger hepatis lymph nodes (series 202, eunice ge [id number]). Reference pericaval lymph node measures 1.3 cm in short axis. SOFT TISSUE/ABDOMINAL WALL: Diffuse symmetric fat stranding of the anterior abdominal wall (series 20 1, image 79) with mild skin thickening (series 203, image 74). Subcentimeter fat-containing umbilical hernia. IMPRESSION: 1. Prominent to enlarged upper abdominal lymph nodes and upper mesenteric fat stranding. Which are no nspecific and may indicate acute infectious or inflammatory process. Clinical correlation and short i nterval CT follow-up is recommended. 2. Anterior abdominal wall fat stranding with skin thickening, recommend direct visualization to asse ss for cellulitis. 3. Unchanged bilateral pulmonary nodules and right lower lobe peripheral consolidation. 4. Hepatosplenomegaly with hepatic steatosis.
[2022-12-09] MEDS ORDERED: ORPHENADRINE 30 MG/ML 2 ML VIAL IVP STA (23:27)
[2022-12-09 23:35] VITALS: RESP 20
[2022-12-10 00:27] VITALS: BP 166/110; PULSE 83
== END 2022-12-10 00:26 | disposition home or self-care (01) ==
LOC: EC 20:56
DX: S29.011A Strain of muscle and tendon of front wall of thorax, initial encounter (principal); N39.0 Urinary tract infection, site not specified; I10 Essential (primary) hypertension; F17.200 Nicotine dependence, unspecified, uncomplicated; Z90.49 Acquired absence of other specified parts of digestive tract; X58.XXXA Exposure to other specified factors, initial encounter
CPT/HCPCS: 36415; 94640; 80053; 83690; 83735; 85025; 81001; 81025; 87086; 74176; 99284; 96374; 96375; J2360; J1885

== ENCOUNTER 2023-05-06 03:55 | Emergency (ER) | payer OTHER ==
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
[2023-05-06] MEDS ORDERED: LABETALOL 5 MG/ML VIAL MDV IVP STA (04:20)
[2023-05-06 04:43] LABS: Anisocytosis Slight; Basophils % (A) 0 %; Eosinophils # (A) 0.2 k/uL (0-0.7); Eosinophils % (A) 2 %; HCT 45.9 % (34.0-46.0); HGB 14.9 gm/dL (11.4-16.0); Lymphocytes # (A) 1.5 k/uL (1.0-4.8); Lymphocytes % (A) 16 %; MCH 26.3 pg (25.0-35.0); MCHC 32.5 g/dL (31.0-37.0); Mean Platelet Volume 9.1; Monocytes # (A) 0.4 k/uL (0-1.0); Monocytes % (A) 5 %; Neutrophils % (A) 76 %; Platelet Count 146 k/uL (150-450); RBC 5.67 m/uL (3.80-5.40); RDW 16.6 % (11.5-15.5); WBC 9.2 k/uL (3.8-10.6)
[2023-05-06 04:55] LABS: ALT 30 U/L (4-34); AST 29 U/L (14-36); African American GFR (CKD) 73 (>60 ml/min/1.73 sqM); Albumin 4.1 g/dL (3.5-5.0); Alkaline Phosphatase 90 U/L (38-126); Anion Gap 10 mmol/L; Blood Urea Nitrogen 18 mg/dL (7-17); Calcium 9.1 mg/dL (8.4-10.2); Carbon Dioxide 22 mmol/L (22-30); Chloride 105 mmol/L (98-107); Glucose 117 mg/dL (74-99); Non-African American GFR(CKD) 63 (>60 ml/min/1.73 sqM); Sodium 137 mmol/L (137-145); Total Bilirubin 0.8 mg/dL (0.2-1.3); Total Protein 7.4 g/dL (6.3-8.2)
[2023-05-06] MEDS ORDERED: ACETAMINOPHEN TAB 500 MG TAB PO STA (08:59)
[2023-05-06 09:04] LABS: Appearance,Urine Clear (Clear); Bilirubin,Urine Negative (Negative); Blood,Urine Negative (Negative); Color,Urine Light Yellow; Glucose,Urine (UA) Negative (Negative); Ketones,Urine Negative (Negative); Leukocyte Esterase,Urine Small (Negative); Nitrite,Urine Negative (Negative); Protein,Urine 2+ (Negative); RBC,Urine 3 /hpf (0-5); Specific Gravity,Urine 1.018 (1.001-1.035); Squamous Epithelial Cell,Urine 1 /hpf (0-4); Urobilinogen,Urine <2.0 mg/dL (<2.0); WBC,Urine 14 /hpf (0-5)
[2023-05-06 09:16] LABS: Amphetamine Screen,Urine Detected (NotDetected); Barbiturate Screen,Urine Not Detected (NotDetected); Benzodiazepines Screen,Urine Not Detected (NotDetected); Cocaine Screen,Urine Not Detected (NotDetected); Methadone Screen, Urine Not Detected (NotDetected); Opiate Screen,Urine Not Detected (NotDetected); Oxycodone Screen, Urine Not Detected (NotDetected); Phencyclidine Screen,Urine Not Detected (NotDetected); Tricyclic Antidepressant,Urine Not Detected (NotDetected); Urn Cannabinoid Scrn Not Detected (NotDetected)
[2023-05-06] MEDS ORDERED: lisinopriL 10 MG TAB PO STA (13:47)
[2023-05-06] MEDS ORDERED: hydrALAZINE HCL 50 MG TAB PO STA (13:47)
[2023-05-06] MEDS ORDERED: carvediloL 12.5 MG TAB PO STA (13:48)
[2023-05-06] MEDS ORDERED: amLODIPine 10 MG TAB PO STA (13:48)
[2023-05-06] MEDS ORDERED: LORazepam 2 MG/ML INJ IV STA (14:20)
[2023-05-06] MEDS ORDERED: ALBUTEROL NEBULIZED 2.5 MG/3 ML INHALATION PRN (19:14)
[2023-05-06] MEDS ORDERED: ALBUTEROL INHALER 60 PUFF/8 GM INHALER (MHU) INHALATION PRN (19:14)
[2023-05-06] MEDS ORDERED: IPRATROPIUM 0.5 MG/2.5 ML NEBU INHALATION PRN (19:14)
[2023-05-06] MEDS ORDERED: hydrALAZINE HCL 20 MG/ML 1 ML VIAL IVP STA (19:17)
[2023-05-06] MEDS: carvediloL 12.5 MG TAB PO SCH (22:35)
[2023-05-07] MEDS: hydrALAZINE HCL 50 MG TAB PO SCH ×4 (06:01→20:45)
[2023-05-07] MEDS: LEVOTHYROXINE 75 MCG TAB PO SCH (06:30)
[2023-05-07] MEDS: IPRATROPIUM-ALBUTEROL 3 ML NEB INHALATION PRN ×2 (08:06→16:35)
[2023-05-07] MEDS: amLODIPine 10 MG TAB PO SCH (09:36)
[2023-05-07] MEDS: lisinopriL 10 MG TAB PO SCH (09:36)
[2023-05-07] MEDS: ATORVASTATIN 40 MG TAB PO SCH (09:36)
[2023-05-07] MEDS: ASPIRIN 81 MG PO SCH (09:36)
[2023-05-07] MEDS: LORATADINE 10 MG TAB PO SCH (09:37)
[2023-05-07] MEDS: FUROSEMIDE 40 MG TAB PO SCH (09:37)
[2023-05-07] MEDS: NIFEdipine XL 30 MG TAB.ER.24 PO SCH (09:37)
[2023-05-07] MEDS: carvediloL 12.5 MG TAB PO SCH ×2 (09:37→20:45)
[2023-05-08] MEDS: IPRATROPIUM-ALBUTEROL 3 ML NEB INHALATION PRN (01:23)
[2023-05-08] MEDS: LEVOTHYROXINE 75 MCG TAB PO SCH (07:03)
[2023-05-08] MEDS: LORATADINE 10 MG TAB PO SCH (08:32)
[2023-05-08] MEDS: lisinopriL 10 MG TAB PO SCH (08:32)
[2023-05-08] MEDS: ATORVASTATIN 40 MG TAB PO SCH (08:32)
[2023-05-08] MEDS: ASPIRIN 81 MG PO SCH (08:32)
[2023-05-08] MEDS: carvediloL 12.5 MG TAB PO SCH (08:32)
[2023-05-08] MEDS: hydrALAZINE HCL 50 MG TAB PO SCH (08:32)
[2023-05-08] MEDS: amLODIPine 10 MG TAB PO SCH (08:32)
[2023-05-08] MEDS: FUROSEMIDE 40 MG TAB PO SCH (08:32)
[2023-05-08] MEDS: NIFEdipine XL 30 MG TAB.ER.24 PO SCH (08:56)
[2023-05-08 13:18] VITALS: TEMP 98
[2023-05-08 14:27] VITALS: BP 130/80
[2023-05-08 15:48] VITALS: PULSE 70; RESP 20
== END 2023-05-08 16:00 | disposition other institution (70) ==
LOC: EC 03:55
DX: F32.A Depression, unspecified (principal); R45.88 Nonsuicidal self-harm; E07.9 Disorder of thyroid, unspecified; I10 Essential (primary) hypertension; F17.200 Nicotine dependence, unspecified, uncomplicated; Z86.59 Personal history of other mental and behavioral disorders; Z79.82 Long term (current) use of aspirin; Z79.890 Hormone replacement therapy; Z79.899 Other long term (current) drug therapy; Z20.822 Contact with and (suspected) exposure to COVID-19; Z91.041 Radiographic dye allergy status
CPT/HCPCS: 82075; 36415; 94640; 80053; 85025; 81001; 84703; 80306; 87635; 99285; 96374; 96375 ×2; J2060; J0360; J1920

== ENCOUNTER 2023-06-07 06:17 | Emergency (ER) | payer OTHER ==
--- NOTE | 2023-06-07 06:38 | ED ---
Abdominal Pain HPI - General Chief Complaint: Abdominal Pain Stated Complaint: Abd Pain Time Seen by Provider: 06/07/23 06:36 Source: patient, RN notes reviewed Mode of arrival: ambulatory Limitations: no limitations - History of Present Illness Initial Comments: Patient is a 42 year old female who presents to the emergency department for abdominal pain. She has pain in her left lower abdomen with radiation to the back. She has history of kidney stone and diverticulitis states she is not sure if this feels similar but has had diarrhea for the past 2 weeks and also have blood in her urine at urgent care recently. No blood in stool. No fever or c hills. No urinary symptoms, vaginal discharge. Patient has nausea no vomiting. - Related Data Home Medications Medication Instructions Recorded Confirmed Albuterol Inhaler [Ventolin Hfa 1 - 2 puff INHALATION RT-Q6H PRN 07/27/22 05/06/23 Inhaler] Albuterol Nebulized [Ventolin 2.5 mg INHALATION RT-QID PRN 07/27/22 05/06/23 Nebulized] Aspirin EC [Ecotrin Low Dose] 81 mg PO DAILY 05/06/23 05/06/23 Furosemide [Lasix] 40 mg PO DAILY 05/06/23 05/06/23 Ipratropium Nebulized [Atrovent 0.5 mg INHALATION RT-QID PRN 05/06/23 05/06/23 Nebulized 0.2 MG/ML] Levothyroxine Sodium [Synthroid] 75 mcg PO DAILY 05/06/23 05/06/23 Loratadine [Claritin] 10 mg PO DAILY 05/06/23 05/06/23 NIFEdipine XL [Procardia Xl] 30 mg PO DAILY 05/06/23 05/06/23 carvediloL [Coreg] 25 mg PO BID 05/06/23 05/06/23 hydrALAZINE HCL [Apresoline] 50 mg PO TID 05/06/23 05/06/23 lisinopriL [Prinivil] 10 mg PO DAILY 05/06/23 05/06/23 Previous Rx's Medication Instructions Recorded Atorvastatin [Lipitor] 40 mg PO DAILY 30 Days #30 tab 07/30/22 amLODIPine [Norvasc] 10 mg PO DAILY 30 Days #30 tab 07/30/22 Amoxic-Pot Clav 875-125Mg 1 tab PO BID #10 tab 06/07/23 [Augmentin 875-125] Ibuprofen [Motrin] 800 mg PO Q8HR PRN #30 tab 06/07/23 Ondansetron Odt [Zofran Odt] 4 mg PO Q8HR PRN #10 tab 06/07/23 Allergies Allergy/AdvReac Type Severity Reaction Status Date / Time Iodinated Contrast Media Allergy Severe Anaphylaxis Verified 06/07/23 06:33 Review of Systems ROS Statement: Those systems with pertinent positive or pertinent negative responses have been documented in the HPI. ROS Other: All systems not noted in ROS Statement are negative. Past Medical History Past Medical History: CVA/TIA, Deep Vein Thrombosis (DVT), GERD/Reflux, GI Bleed, Hypertension, Pneumonia, Pulmonary Embolus (PE), Renal Disease, Thyroid Disorder Additional Past Medical History / Comment(s): Pt states she was just treated with antibiotics for L lower leg cellulitis and stated it was gone morning of 11/04/19 then last night she noticed it was back and looked worse to her. Other hx: Bilateral PEs, DVT-pt thinks bilaterally, TIA, pt is currently being worked up for lupus, CKD stage II-R kidney atrophy, bronchitis, stomach ulcer, upper and lower GI bleeds, diverticular disease, palpitations, hypothyroid. History of Any Multi-Drug Resistant Organisms: None Reported Past Surgical History: Section, Cholecystectomy Additional Past Surgical History / Comment(s): 11/04/19 lap sharyn, EGD, colonoscopy, C-SEC X 2, sinus surgery, D&C Past Anesthesia/Blood Transfusion Reactions: No Reported Reaction Past Psychological History: Bipolar, Depression Smoking Status: Current every day smoker Past Alcohol Use History: None Reported Past Drug Use History: None Reported - Past Family History Mother Family Medical History: No Reported History Additional Family Medical History / Comment(s): Mother is healthy Father Family Medical History: COPD, Coronary Artery Disease (CAD) Additional Family Medical History / Comment(s): Father was born with polio. He has had CABG General Exam - General Exam Comments Initial Comments: Visual Physical Exam Vital signs reviewed General: Well-appearing, nontoxic, no acute distress. Head: Normocephalic, atraumatic Eyes: PERRLA, EOMI ENT: Airway patent Chest: Nonlabored breathing Skin: No visual rash, normal skin tone Neuro: Alert and oriented 3 Musculoskeletal: No gross abnormalities Limitations: no limitations General appearance: alert Eye exam: Present: normal appearance, PERRL, EOMI. Absent: scleral icterus, conjunctival injection, periorbital swelling Respiratory exam: Present: normal lung sounds bilaterally. Absent: respiratory distress, wheezes, rales, rhonchi, stridor Cardiovascular Exam: Present: regular rate, normal rhythm, normal heart sounds. Absent: systolic murmur, diastolic murmur, rubs, gallop, clicks GI/Abdominal exam: Present: soft, tenderness (LLQ), normal bowel sounds. Absent: distended, guarding, rebound, rigid Back exam: Present: normal inspection, full ROM. Absent: CVA tenderness (R), CVA tenderness (L), paraspinal tenderness, vertebral tenderness Neurological exam: Present: alert Psychiatric exam: Present: normal affect, normal mood Course Vital Signs 06/07/23 06/07/23 06:33 12:17 Temperature 98.1 F 98.3 F Pulse Rate 86 97 Respiratory 18 18 Rate Blood Pressure 177/125 171/108 O2 Sat by Pulse 98 95 Oximetry Medical Decision Making - Medical Decision Making I performed the QuickNote portion of this chart - Ines Hatch PA-C Was pt. sent in by a medical professional or institution ([facility], PIT FURNACE OPERATOR, urgent care, hospital, or jail...) When possible be specific @ -No Did you speak to anyone other than the patient for history (EMS, parent, family, police, friend...)? What history was obtained from this source @ -No Did you review nursing and triage notes (agree or disagree)? Why? @ -I reviewed and agree with nursing and triage notes Were old charts reviewed (outside hosp., previous admission, EMS record, old EKG, old radiological studies, urgent care reports/EKG's, jail records)? Report findings @ -No old charts were reviewed Differential Diagnosis (chest pain, altered mental status, abdominal pain women, abdominal pain men, vaginal bleeding, weakness, fever, dyspnea, syncope, headache, dizziness, GI bleed, back pain, seizure, CVA, palpatations, mental health)? @ -Differential Abdominal Pain Women: Appendicitis, Cholecystitis, diverticulosis, ischemic bowel, pancreatitis, hepatitis, UTI, gastroenteritis, AAA, incarcerated hernia, bowel obstruction, constipation, inflammatory bowel, hepatitis, peptic ulcer disease, splenic infarction, perforated viscus, vulvitis, ovarian torsion, PID, kidney stone, placenta abruption, this is not meant to be an all-inclusive list EKG interpreted by me (3pts min.). @ -As above X-rays interpreted by me (1pt min.). @ -None done CT interpreted by me (1pt min.). @ -None done U/S interpreted by me (1pt. min.). @ -None done What testing was considered but not performed or refused? (CT, X-rays, U/S, labs)? Why? @ -None What meds were considered but not given or refused? Why? @ -None Did you discuss the management of the patient with other professionals (professionals i.e. , PA, PIT FURNACE OPERATOR, lab, RT, psych nurse, social insurance specialist, quality specialist, teacher, property disposal officer, case resource manager)? Give summary @ -No Was smoking cessation discussed for >3mins.? @ -No Was critical care preformed (if so, how long)? @ -No Were there social determinants of health that impacted care today? How? (Homele ssness, low income, unemployed, alcoholism, drug addiction, transportation, low edu. Level, literacy, decrease access to med. care, detention, rehab)? @ -No Was there de-escalation of care discussed even if they declined (Discuss DNR or withdrawal of care, Hospice)? DNR status @ -No What co-morbidities impacted this encounter? (DM, HTN, Smoking, COPD, CAD, Cancer, CVA, ARF, Chemo, Hep., AIDS, mental health diagnosis, sleep apnea, morbid obesity)? @ -None Was patient admitted / discharged? Hospital course, mention meds given and route, prescriptions, significant lab abnormalities, going to OR and other pertinent info. @ -42-year-old presenting for pain in the left lower abdomen, nausea. Patient is nontoxic appearing. Afebrile. No leukocytosis. CT of the abdomen and pelvis interpreted by myself significant for probable mild acute diverticulitis without abscess or free air, fluid within the right adnexa with pelvic fat stranding, differential includes PID and ruptured cyst. Patient is sexually active with 1 male partner who she has been with for several years. She is not concern for sexually transmitted infections. She denies burning with urination, frequency/urgency, vaginal discharge. Does not want treatment for any possible sexually transmitted infections. Gonorrhea and chlamydia results pending. Pain and nausea are controlled. patient did have persistent hypertension during visit. She has history of hypertension and did not take her blood pressure medications this morning. She denies headache, chest pain, shortness of breath. She was given IV hydralazine with some improvement. Patient in stable medical condition for discharge she is encouraged to take her hypertension medications. She will be discharged with Augmentin for diverticulitis. She will follow-up with primary care provider we did discuss incidental hepatosplenomegaly and uterine nodule on CT. Undiagnosed new problem with uncertain prognosis? @ -No Drug Therapy requiring intensive monitoring for toxicity (Heparin, Nitro, Insulin, Cardizem)? @ -No Were any procedures done? @ -No Diagnosis/symptom? @ -diverticulitis, hypertensive urgency Acute, or Chronic, or Acute on Chronic? @ -acute Uncomplicated (without systemic symptoms) or Complicated (systemic symptoms)? @ -uncomplicated Side effects of treatment? @ -No Exacerbation, Progression, or Severe Exacerbation? @ -No Poses a threat to life or bodily function? How? (Chest pain, [place], [place], pneumonia, PE, COPD, DKA, ARF, appy, cholecystitis, CVA, Diverticulitis, Homicidal, Suicidal, threat to staff... and all critical care pts) @ -No Dr. Jesnen is my attending - Lab Data Result diagrams: 06/07/23 07:46 06/07/23 07:46 Lab Results 06/07/23 06/07/23 06/07/23 Range/Units 07:46 07:46 07:46 WBC 7.6 (3.8-10.6) k/uL RBC 5.74 H (3.80-5.40) m/uL Hgb 15.4 (11.4-16.0) gm/dL Hct 46.9 H (34.0-46.0) % MCV 81.6 (80.0-100.0) fL MCH 26.8 (25.0-35.0) pg MCHC 32.9 (31.0-37.0) g/dL RDW 16.0 H (11.5-15.5) % Plt Count 134 L (150-450) k/uL MPV 13.5 Neutrophils % 68 % Lymphocytes % 21 % Monocytes % 6 % Eosinophils % 3 % Basophils % 0 % Neutrophils # 5.2 (1.3-7.7) k/uL Lymphocytes # 1.6 (1.0-4.8) k/uL Monocytes # 0.5 (0-1.0) k/uL Eosinophils # 0.3 (0-0.7) k/uL Basophils # 0.0 (0-0.2) k/uL Sodium (137-145) mmol/L Potassium (3.5-5.1) mmol/L Chloride (98-107) mmol/L Carbon Dioxide (22-30) mmol/L Anion Gap mmol/L BUN (7-17) mg/dL Creatinine (0.52-1.04) mg/dL Est GFR (CKD-EPI)AfAm (>60 ml/min/1.73 sqM) Est GFR (CKD-EPI)NonAf (>60 ml/min/1.73 sqM) Glucose (74-99) mg/dL Plasma Lactic Acid Natalio (0.7-2.0) mmol/L Calcium (8.4-10.2) mg/dL Total Bilirubin (0.2-1.3) mg/dL AST (14-36) U/L ALT (4-34) U/L Alkaline Phosphatase (38-126) U/L Total Protein (6.3-8.2) g/dL Albumin (3.5-5.0) g/dL Lipase (23-300) U/L Urine Color Yellow Urine Appearance Cloudy H (Clear) Urine pH 6.0 (5.0-8.0) Ur Specific [place] 1.031 (1.001-1.035) Urine Protein 2+ H (Negative) Urine Glucose (UA) Negative (Negative) Urine Ketones Negative (Negative) Urine Blood Negative (Negative) Urine Nitrite Negative (Negative) Urine Bilirubin Negative (Negative) Urine Urobilinogen <2.0 (<2.0) mg/dL Ur Leukocyte Esterase Moderate H (Negative) Urine RBC 2 (0-5) /hpf Urine WBC 30 H (0-5) /hpf Ur Squamous Epith Cells 10 H (0-4) /hpf Urine Mucus Rare H (None) /hpf Urine HCG, Qual Not Detected (Not Detectd) 06/07/23 06/07/23 Range/Units 07:46 07:46 WBC (3.8-10.6) k/uL RBC (3.80-5.40) m/uL Hgb (11.4-16.0) gm/dL Hct (34.0-46.0) % MCV (80.0-100.0) fL MCH (25.0-35.0) pg MCHC (31.0-37.0) g/dL RDW (11.5-15.5) % Plt Count (150-450) k/uL MPV Neutrophils % % Lymphocytes % % Monocytes % % Eosinophils % % Basophils % % Neutrophils # (1.3-7.7) k/uL Lymphocytes # (1.0-4.8) k/uL Monocytes # (0-1.0) k/uL Eosinophils # (0-0.7) k/uL Basophils # (0-0.2) k/uL Sodium 139 (137-145) mmol/L Potassium 4.6 (3.5-5.1) mmol/L Chloride 105 (98-107) mmol/L Carbon Dioxide 26 (22-30) mmol/L Anion Gap 8 mmol/L BUN 17 (7-17) mg/dL Creatinine 1.09 H (0.52-1.04) mg/dL Est GFR (CKD-EPI)AfAm 74 (>60 ml/min/1.73 sqM) Est GFR (CKD-EPI)NonAf 64 (>60 ml/min/1.73 sqM) Glucose 116 H (74-99) mg/dL Plasma Lactic Acid Natalio 0.7 (0.7-2.0) mmol/L Calcium 8.9 (8.4-10.2) mg/dL Total Bilirubin 0.7 (0.2-1.3) mg/dL AST 22 (14-36) U/L ALT 23 (4-34) U/L Alkaline Phosphatase 86 (38-126) U/L Total Protein 7.1 (6.3-8.2) g/dL Albumin 3.9 (3.5-5.0) g/dL Lipase 69 (23-300) U/L Urine Color Urine Appearance (Clear) Urine pH (5.0-8.0) Ur Specific [place] (1.001-1.035) Urine Protein (Negative) Urine Glucose (UA) (Negative) Urine Ketones (Negative) Urine Blood (Negative) Urine Nitrite (Negative) Urine Bilirubin (Negative) Urine Urobilinogen (<2.0) mg/dL Ur Leukocyte Esterase (Negative) Urine RBC (0-5) /hpf Urine WBC (0-5) /hpf Ur Squamous Epith Cells (0-4) /hpf Urine Mucus (None) /hpf Urine HCG, Qual (Not Detectd) Disposition Clinical Impression: Diverticulitis, Hypertensive urgency Disposition: HOME SELF-CARE Condition: Good Instructions (If sedation given, give patient instructions): Diverticulitis (ED) Additional Instructions: Take medication as directed for diverticulitis. Alternate Tylenol and Motrin every 3-4 hours for pain. See Tylenol 3 for severe pain. Do not drink alcohol or operate machinery taking Tylenol 3. Return to the emergency department if you experience new, concerning, or worsening symptoms. Your liver and spleen are enlarged. You also have a nodule in your uterus. Follow-up with primary care provider and gynecology noting these findings. Prescriptions: Amoxic-Pot Clav 875-125Mg [Augmentin 875-125] 1 tab PO BID #10 tab Ibuprofen [Motrin] 800 mg PO Q8HR PRN #30 tab PRN Reason: Pain Ondansetron Odt [Zofran Odt] 4 mg PO Q8HR PRN #10 tab PRN Reason: Nausea Is patient prescribed a controlled substance at d/c from ED?: No Referrals: Young Paulino MD [Primary Care Provider] - 1-2 days
[2023-06-07 06:48] VITALS: RESP 18
[2023-06-07 07:57] LABS: Basophils % (A) 0 %; Eosinophils # (A) 0.3 k/uL (0-0.7); Eosinophils % (A) 3 %; HCT 46.9 % (34.0-46.0); HGB 15.4 gm/dL (11.4-16.0); Lymphocytes # (A) 1.6 k/uL (1.0-4.8); Lymphocytes % (A) 21 %; MCH 26.8 pg (25.0-35.0); MCHC 32.9 g/dL (31.0-37.0); MCV 81.6 fL (80.0-100.0); Mean Platelet Volume 13.5; Monocytes # (A) 0.5 k/uL (0-1.0); Monocytes % (A) 6 %; Neutrophils # (A) 5.2 k/uL (1.3-7.7); Neutrophils % (A) 68 %; Platelet Count 134 k/uL (150-450); RBC 5.74 m/uL (3.80-5.40); WBC 7.6 k/uL (3.8-10.6)
[2023-06-07] MEDS ORDERED: ONDANSETRON 4 MG/2 ML VIAL IVP STA (07:57)
[2023-06-07] MEDS ORDERED: HYDROmorphone 0.5 MG/0.5 ML SYRINGE IVP STA (07:57)
[2023-06-07] MEDS ORDERED: diphenhydrAMINE 50 MG/ML 1 ML VIAL IVP STA (07:58)
[2023-06-07] MEDS ORDERED: FAMOTIDINE 20 MG/2 ML VIAL IV STA (07:58)
[2023-06-07] MEDS ORDERED: SODIUM CHLORIDE 0.9% 1,000 ML IV STA (07:58)
[2023-06-07] MEDS ORDERED: methylPREDNISolone SOD SUCCI 125 MG/2 ML VIAL IV STA (07:58)
[2023-06-07 08:14] LABS: ALT 23 U/L (4-34); AST 22 U/L (14-36); African American GFR (CKD) 74 (>60 ml/min/1.73 sqM); Albumin 3.9 g/dL (3.5-5.0); Alkaline Phosphatase 86 U/L (38-126); Anion Gap 8 mmol/L; Blood Urea Nitrogen 17 mg/dL (7-17); Calcium 8.9 mg/dL (8.4-10.2); Carbon Dioxide 26 mmol/L (22-30); Chloride 105 mmol/L (98-107); Glucose 116 mg/dL (74-99); Lipase 69 U/L (23-300); Non-African American GFR(CKD) 64 (>60 ml/min/1.73 sqM); Potassium 4.6 mmol/L (3.5-5.1); Sodium 139 mmol/L (137-145); Total Bilirubin 0.7 mg/dL (0.2-1.3); Total Protein 7.1 g/dL (6.3-8.2)
[2023-06-07 08:59] LABS: Appearance,Urine Cloudy (Clear); Bilirubin,Urine Negative (Negative); Blood,Urine Negative (Negative); Color,Urine Yellow; Glucose,Urine (UA) Negative (Negative); Ketones,Urine Negative (Negative); Leukocyte Esterase,Urine Moderate (Negative); Mucus,Urine Rare /hpf; Nitrite,Urine Negative (Negative); Protein,Urine 2+ (Negative); RBC,Urine 2 /hpf (0-5); Specific Gravity,Urine 1.031 (1.001-1.035); Squamous Epithelial Cell,Urine 10 /hpf (0-4); Urobilinogen,Urine <2.0 mg/dL (<2.0); WBC,Urine 30 /hpf (0-5)
--- NOTE | 2023-06-07 09:35 | CT ---
EXAMINATION TYPE: CT abdomen pelvis w con DATE OF EXAM: 06/07/2023 COMPARISON: 12/09/[address] chest 07/27/2022 HISTORY: 42-year-old female LLQ pain TECHNIQUE: Contiguous axial scanning of the abdomen and pelvis following administration of 100 ml Iso janna 300 IV contrast. Delayed images through the kidneys and coronal/sagittal reconstructions perform ed. CT DLP: 2135.1 mGycm Automated exposure control for dose reduction was used. FINDINGS: The heart is mildly enlarged. There is some focal opacity at the posterolateral subpleural right base that probably representing pleural parenchymal scarring rather than developing infiltrate. There is a 9 mm right basilar pulmonary nodule for which annual surveillance follow-up is recommended. Smaller from 07/27/2022. No pleural effusion. Small hiatal hernia. Hepatomegaly at 19.5 cm with mild fatty infiltration. Unchanged. Portal venous system is patent. No b iliary ductal dilatation. Gallbladder surgically absent. The spleen is enlarged at 16.3 cm. Slightly increased from 15.8 cm. Adrenal glands and left kidney within normal limits. Markedly atrophic right kidney with a 1 cm corti [place] lesion measuring 9 mm previously. Likely tiny cyst. No dilated small bowel, free fluid, or free air. Numerous scattered nonenlarged and borderline to mil dly enlarged retroperitoneal nodes measuring up to 1.2 cm relatively similar compared to 12/09/2022. S ome appear slightly larger. Normal appendix. Mild stool burden. Some scattered sigmoid diverticulosis. There is some fat strandi ng in the pelvis, some which is located along the mid sigmoid colon, axial image 70. Mild to moderate right adnexal free fluid. Ovaries appear relatively small. There is a 1.9 cm low den sity area left uterine fundus. Uterus anteverted. No pelvic lymphadenopathy seen. Bones: No osseous destructive process. IMPRESSION: 1. HEPATOSPLENOMEGALY (LIVER 19.5 CM AND SPLEEN 16.3 CM ) ALONG WITH NONENLARGED AND BORDERLINE AND M ILDLY ENLARGED RETROPERITONEAL NODES MEASURING UP TO 1.2 CM. Some of these nodes may be slightly larg er. The spleen is also minimally larger. Further clinical correlation recommended. Consider follow-up in 6 months to reassess the nodes. 2. Mild fat stranding within the pelvis. There is sigmoid diverticulosis and some of the fat strandin g is located along the mid sigmoid colon. Unable to exclude mild acute diverticulitis. No abscess or free air. 3. However, in addition, there is some fluid within the right adnexa. Given the pelvic fat stranding, correlate clinically to exclude PID or fluid from a recently ruptured follicle/hemorrhagic cyst. 4. A 1.9 cm hypodensity in the left uterine fundus. Etiology unclear. If there was previous endometri al ablation, this could represent a focus of hematometra and patient can follow-up with SCOURING TRAIN OPERATOR.
[2023-06-07] MEDS ORDERED: AMOXIC-POT CLAV 875-125MG 1 EACH TAB PO STA (09:49)
[2023-06-07] MEDS ORDERED: ACET/COD 300 MG/30 MG STARTER PACK 6 TAB BTL PO STA (09:58)
[2023-06-07] MEDS ORDERED: hydrALAZINE HCL 20 MG/ML 1 ML VIAL IVP STA (10:55)
[2023-06-07 12:30] VITALS: BP 171/108; PULSE 97; TEMP 98.3
== END 2023-06-07 12:20 | disposition home or self-care (01) ==
LOC: EC 06:17
DX: K57.30 Diverticulosis of large intestine without perforation or abscess without bleeding (principal); I16.0 Hypertensive urgency; I10 Essential (primary) hypertension; E07.9 Disorder of thyroid, unspecified; Z79.890 Hormone replacement therapy; Z79.899 Other long term (current) drug therapy; Z79.82 Long term (current) use of aspirin; Z91.041 Radiographic dye allergy status; Z86.73 Personal history of transient ischemic attack (TIA), and cerebral infarction without residual deficits
CPT/HCPCS: 36415; 80053; 87491; 83605; 83690; 85025; 81001; 81025; 74177; 99284; 96374; 96375 ×5; 96361; J0360; J1200; J2930; J2405; J3490; J1170; Q9967

== ENCOUNTER 2024-01-01 12:07 | Emergency (ER) | payer OTHER ==
--- NOTE | 2024-01-01 12:34 | ED ---
Abdominal Pain HPI - General Chief Complaint: Abdominal Pain Stated Complaint: Abd/L leg pain,Dizziness Time Seen by Provider: 01/01/24 12:23 Source: patient, RN notes reviewed Mode of arrival: ambulatory Limitations: no limitations - History of Present Illness Initial Comments: This is a 43-year-old female with a past history of cholecystectomy and neph rolithiasis presents to the emergency department chief complaint of left lower quadrant abdominal and groin pain over the past week. Initially, patient was experiencing symptoms of nausea, vomiting, and high fevers which prompted her to go to urgent care where she was diagnosed with an upper respiratory infection and sent home with doxycycline. Patient states that the pain has worsened in her abdomen over this time. She denies diarrhea, hematochezia, constipation, vaginal bleeding, vaginal discharge. Last bowel movement was this morning. Denies hematuria, endorses increase in urinary frequency and urgency. - Related Data Home Medications Medication Instructions Recorded Confirmed Albuterol Inhaler [Ventolin Hfa 1 - 2 puff INHALATION RT-Q6H PRN 07/27/22 05/06/23 Inhaler] Albuterol Nebulized [Ventolin 2.5 mg INHALATION RT-QID PRN 07/27/22 05/06/23 Nebulized] Aspirin EC [Ecotrin Low Dose] 81 mg PO DAILY 05/06/23 05/06/23 Furosemide [Lasix] 40 mg PO DAILY 05/06/23 05/06/23 Ipratropium Nebulized [Atrovent 0.5 mg INHALATION RT-QID PRN 05/06/23 05/06/23 Nebulized 0.2 MG/ML] Levothyroxine Sodium [Synthroid] 75 mcg PO DAILY 05/06/23 05/06/23 Loratadine [Claritin] 10 mg PO DAILY 05/06/23 05/06/23 NIFEdipine XL [Procardia Xl] 30 mg PO DAILY 05/06/23 05/06/23 carvediloL [Coreg] 25 mg PO BID 05/06/23 05/06/23 hydrALAZINE HCL [Apresoline] 50 mg PO TID 05/06/23 05/06/23 lisinopriL [Prinivil] 10 mg PO DAILY 05/06/23 05/06/23 Previous Rx's Medication Instructions Recorded Atorvastatin [Lipitor] 40 mg PO DAILY 30 Days #30 tab 07/30/22 amLODIPine [Norvasc] 10 mg PO DAILY 30 Days #30 tab 07/30/22 Amoxic-Pot Clav 875-125Mg 1 tab PO BID #10 tab 06/07/23 [Augmentin 875-125] Ibuprofen [Motrin] 800 mg PO Q8HR PRN #30 tab 06/07/23 Ondansetron Odt [Zofran Odt] 4 mg PO Q8HR PRN #10 tab 06/07/23 Amoxic-Pot Clav 875-125Mg 1 tab PO Q12HR #20 tab 01/01/24 [Augmentin 875-125] Ketorolac [Toradol] 10 mg PO Q8HR #15 tab 01/01/24 Allergies Allergy/AdvReac Type Severity Reaction Status Date / Time Iodinated Contrast Media Allergy Severe Anaphylaxis Verified 01/01/24 12:19 Review of Systems ROS Statement: Those systems with pertinent positive or pertinent negative responses have been documented in the HPI. ROS Other: All systems not noted in ROS Statement are negative. Past Medical History Past Medical History: CVA/TIA, Deep Vein Thrombosis (DVT), GERD/Reflux, GI Bleed, Hypertension, Pneumonia, Pulmonary Embolus (PE), Renal Disease, Thyroid Disorder Additional Past Medical History / Comment(s): Pt states she was just treated with antibiotics for L lower leg cellulitis and stated it was gone morning of 11/04/19 then last night she noticed it was back and looked worse to her. Other hx: Bilateral PEs, DVT-pt thinks bilaterally, TIA, pt is currently being worked up for lupus, CKD stage II-R kidney atrophy, bronchitis, stomach ulcer, upper and lower GI bleeds, diverticular disease, palpitations, hypothyroid. History of Any Multi-Drug Resistant Organisms: None Reported Past Surgical History: Section, Cholecystectomy Additional Past Surgical History / Comment(s): 11/04/19 lap sharyn, EGD, colonoscopy, C-SEC X 2, sinus surgery, D&C Past Anesthesia/Blood Transfusion Reactions: No Reported Reaction Past Psychological History: Bipolar, Depression Smoking Status: Current every day smoker Past Alcohol Use History: None Reported Past Drug Use History: None Reported - Past Family History Mother Family Medical History: No Reported History Additional Family Medical History / Comment(s): Mother is healthy Father Family Medical History: COPD, Coronary Artery Disease (CAD) Additional Family Medical History / Comment(s): Father was born with polio. He has had CABG General Exam Limitations: no limitations General appearance: alert, in no apparent distress Head exam: Present: atraumatic, normocephalic, normal inspection Eye exam: Present: normal appearance, PERRL, EOMI. Absent: scleral icterus, conjunctival injection, periorbital swelling ENT exam: Present: normal exam, mucous membranes moist Neck exam: Present: normal inspection. Absent: tenderness, meningismus, lymphadenopathy Respiratory exam: Present: normal lung sounds bilaterally. Absent: respiratory distress, wheezes, rales, rhonchi, stridor Cardiovascular Exam: Present: regular rate, normal rhythm, normal heart sounds. Absent: systolic murmur, diastolic murmur, rubs, gallop, clicks GI/Abdominal exam: Present: soft, tenderness (LLQ), rebound (LLQ). Absent: guarding, rigid Extremities exam: Present: normal inspection, full ROM, normal capillary refill. Absent: tenderness, pedal edema, joint swelling, calf tenderness Back exam: Present: normal inspection Neurological exam: Present: alert, oriented X3, CN II-XII intact Psychiatric exam: Present: normal affect, normal mood Skin exam: Present: warm, dry, intact, normal color. Absent: rash Course Vital Signs 01/01/24 12:17 Temperature 98.5 F Pulse Rate 83 Respiratory 18 Rate Blood Pressure 155/105 O2 Sat by Pulse 95 Oximetry Medical Decision Making - Medical Decision Making Was pt. sent in by a medical professional or institution (, PA, CAD OPERATOR, urgent care, hospital, or [facility]...) When possible be specific @ -No Did you speak to anyone other than the patient for history (EMS, parent, family, police, friend...)? What history was obtained from this source @ -No Did you review nursing and triage notes (agree or disagree)? Why? @ -I reviewed and agree with nursing and triage notes Were old charts reviewed (outside hosp., previous admission, EMS record, old EKG, old radiological studies, urgent care reports/EKG's, [facility] records)? Report findings @ -No old charts were reviewed Differential Diagnosis (chest pain, altered mental status, abdominal pain women, abdominal pain men, vaginal bleeding, weakness, fever, dyspnea, syncope, headache, dizziness, GI bleed, back pain, seizure, CVA, palpatations, mental he alth, musculoskeletal)? @ -Differential Abdominal Pain Women: Appendicitis, Cholecystitis, diverticulosis, ischemic bowel, pancreatitis, hepatitis, UTI, gastroenteritis, AAA, incarcerated hernia, bowel obstruction, constipation, inflammatory bowel, hepatitis, peptic ulcer disease, splenic infarction, perforated viscus, vulvitis, ovarian torsion, PID, kidney stone, placenta abruption, this is not meant to be an all-inclusive list EKG interpreted by me (3pts min.). @ -None X-rays interpreted by me (1pt min.). @ -None done CT interpreted by me (1pt min.). @ -CT of the abdomen pelvis without contrast reveals acute diverticulitis of the sigmoid colon with marked atrophy in the right kidney and splenomegaly. U/S interpreted by me (1pt. min.). @ -None done What testing was considered but not performed or refused? (CT, X-rays, U/S, labs)? Why? @ -None What meds were considered but not given or refused? Why? @ -None Did you discuss the management of the patient with other professionals (professionals i.e. , PA, CAD OPERATOR, lab, RT, psych nurse, social group worker, military pay clerk, teacher, control systems drafting officer, assistant case manager)? Give summary @ -No Was smoking cessation discussed for >3mins.? @ -No Was critical care preformed (if so, how long)? @ -No Were there social determinants of health that impacted care today? How? (Homelessness, low income, unemployed, alcoholism, drug addiction, lopez sportation, low edu. Level, literacy, decrease access to med. care, fdc, rehab)? @ -No Was there de-escalation of care discussed even if they declined (Discuss DNR or withdrawal of care, Hospice)? DNR status @ -No What co-morbidities impacted this encounter? (DM, HTN, Smoking, COPD, CAD, Cancer, CVA, ARF, Chemo, Hep., AIDS, mental health diagnosis, sleep apnea, morbid obesity)? @ -None Was patient admitted / discharged? Hospital course, mention meds given and route, prescriptions, significant lab abnormalities, going to OR and other pertinent info. @ -43-year-old female with left lower quadrant abdominal pain. On examination patient noted to have a soft abdomen that is tender to the left lower quadrant with rebound tenderness of the left lower quadrant. Abdomen is nonrigid with no concern for surgical abdomen. At this time patient will be evaluated via lab work for, pain in addition to CT of the abdomen without contrast due to patient being allergic to iodine and contrast. She also be symptomatically treated with fluids and pain medication. Patient is in agreement with this plan. Evaluation, patient states that her symptoms have improved after medication. Review of labs unremarkable CBC, CMP within normal limits. Urinalysis remarkable for infection including large leukocyte esterase, red blood cells, and white blood cells. CT concerning for diverticulitis. Discussion with patient at bedside she will be treated outpatient with Augmentin and provided pain medication for diverticulitis. All questions answered at bedside. Strict return parameters discussed with the patient. Stable for discharge. Case discussed with Dr. Sewell. Recommend that patient follows up with her primary care provider in the next week for further evaluation. Undiagnosed new problem with uncertain prognosis? @ -No Drug Therapy requiring intensive monitoring for toxicity (Heparin, Nitro, Insulin, Cardizem)? @ -No Were any procedures done? @ -No Diagnosis/symptom? @ -Diverticulitis, urinary tract infection Acute, or Chronic, or Acute on Chronic? @ -Acute Uncomplicated (without systemic symptoms) or Complicated (systemic symptoms)? @ -Uncomplicated Side effects of treatment? @ -No Exacerbation, Progression, or Severe Exacerbation? @ -No Poses a threat to life or bodily function? How? (Chest pain, [place], [place], pneumonia, PE, COPD, DKA, ARF, appy, cholecystitis, CVA, Diverticulitis, Homicidal, Suicidal, threat to staff... and all critical care pts) @ -No - Lab Data Result diagrams: 01/01/24 13:15 01/01/24 14:13 Lab Results 01/01/24 01/01/24 01/01/24 Range/Units 13:15 13:15 14:13 WBC 7.2 (3.8-10.6) k/uL RBC 5.31 (3.80-5.40) m/uL Hgb 14.8 (11.4-16.0) gm/dL Hct 43.8 (34.0-46.0) % MCV 82.4 (80.0-100.0) fL MCH 27.8 (25.0-35.0) pg MCHC 33.8 (31.0-37.0) g/dL RDW 14.8 (11.5-15.5) % Plt Count 147 L (150-450) k/uL MPV 9.9 Neutrophils % 76 % Lymphocytes % 13 % Monocytes % 7 % Eosinophils % 2 % Basophils % 1 % Neutrophils # 5.5 (1.3-7.7) k/uL Lymphocytes # 0.9 L (1.0-4.8) k/uL Monocytes # 0.5 (0-1.0) k/uL Eosinophils # 0.1 (0-0.7) k/uL Basophils # 0.0 (0-0.2) k/uL Sodium 139 (137-145) mmol/L Potassium 3.8 (3.5-5.1) mmol/L Chloride 107 (98-107) mmol/L Carbon Dioxide 26 (22-30) mmol/L Anion Gap 6 mmol/L BUN 16 (7-17) mg/dL Creatinine 1.01 (0.52-1.04) mg/dL Est GFR (CKD-EPI)AfAm 80 (>60 ml/min/1.73 sqM) Est GFR (CKD-EPI)NonAf 69 (>60 ml/min/1.73 sqM) Glucose 94 (74-99) mg/dL Calcium 8.2 L (8.4-10.2) mg/dL Total Bilirubin 0.8 (0.2-1.3) mg/dL AST 27 (14-36) U/L ALT 79 H (4-34) U/L Alkaline Phosphatase 323 H (38-126) U/L Total Protein 7.0 (6.3-8.2) g/dL Albumin 3.7 (3.5-5.0) g/dL Urine Color Dark Yellow Urine Appearance Cloudy H (Clear) Urine pH 5.5 (5.0-8.0) Ur Specific [place] 1.030 (1.001-1.035) Urine Protein 2+ H (Negative) Urine Glucose (UA) Negative (Negative) Urine Ketones Negative (Negative) Urine Blood Small H (Negative) Urine Nitrite Negative (Negative) Urine Bilirubin Negative (Negative) Urine Urobilinogen 2.0 (<2.0) mg/dL Ur Leukocyte Esterase Large H (Negative) Urine RBC 10 H (0-5) /hpf Urine WBC 31 H (0-5) /hpf Ur Squamous Epith Cells 16 H (0-4) /hpf Urine Bacteria Rare H (None) /hpf Urine Mucus Rare H (None) /hpf Disposition Clinical Impression: Diverticulitis, Cystitis Narrative: Please return to the Emergency Department if symptoms worsen or any other concerns. Full course of antibiotics as prescribed. Follow-up with your primary care provider next week for further evaluation. Disposition: HOME SELF-CARE Condition: Good Instructions (If sedation given, give patient instructions): Diverticulitis (ED), Urinary Tract Infection in Women (ED) Prescriptions: Amoxic-Pot Clav 875-125Mg [Augmentin 875-125] 1 tab PO Q12HR #20 tab Ketorolac [Toradol] 10 mg PO Q8HR #15 tab Is patient prescribed a controlled substance at d/c from ED?: No Referrals: Young Paulino MD [Primary Care Provider] - 1-2 days Time of Disposition: 15:02
[2024-01-01 12:45] VITALS: BP 155/105; PULSE 83; RESP 18; TEMP 98.5
[2024-01-01] MEDS: HYDROmorphone 0.5 MG/0.5 ML SYRINGE IVP STA (13:30)
[2024-01-01] MEDS: SODIUM CHLORIDE 0.9% 1,000 ML IV STA (13:30)
[2024-01-01 13:37] LABS: Basophils % (A) 1 %; Eosinophils # (A) 0.1 k/uL (0-0.7); Eosinophils % (A) 2 %; HCT 43.8 % (34.0-46.0); HGB 14.8 gm/dL (11.4-16.0); Lymphocytes # (A) 0.9 k/uL (1.0-4.8); Lymphocytes % (A) 13 %; MCH 27.8 pg (25.0-35.0); MCHC 33.8 g/dL (31.0-37.0); MCV 82.4 fL (80.0-100.0); Mean Platelet Volume 9.9; Monocytes # (A) 0.5 k/uL (0-1.0); Monocytes % (A) 7 %; Neutrophils # (A) 5.5 k/uL (1.3-7.7); Neutrophils % (A) 76 %; Platelet Count 147 k/uL (150-450); RBC 5.31 m/uL (3.80-5.40); RDW 14.8 % (11.5-15.5); WBC 7.2 k/uL (3.8-10.6)
--- NOTE | 2024-01-01 13:40 | CT ---
EXAMINATION TYPE: CT abdomen pelvis wo con DATE OF EXAM: 01/01/2024 COMPARISON: 06/07/2023 HISTORY: LLQ and flank pain for [address] DLP: 1235.2 mGycm Examination of the solid and hollow viscera is limited given the lack of contrast. FINDINGS: LUNG BASES: No evidence for nodule. No evidence for infiltrate. LIVER/GB: The gallbladder is surgically absent. No space-occupying hepatic lesion. PANCREAS: No pancreatic mass identified. No inflammatory process seen. SPLEEN: Splenomegaly measuring 17.2 cm craniocaudal dimension. No intrasplenic lesions seen. ADRENALS: No adrenal nodules identified. No evidence for thickening. KIDNEYS: Marked atrophy of the right kidney with compensatory hypertrophy of the left kidney. No evid ence for renal mass. No nephrolithiasis. No hydronephrosis. BOWEL: Mild inflammatory change mid sigmoid colon with a few diverticula and wall thickening seen com patible with uncomplicated diverticulitis. No evidence for perforation or abscess. Normal appendix se en. Small bowel is of normal caliber. No pneumoperitoneum. Lymph nodes: No evidence for adenopathy greater than 1 cm. Abdominal aorta: Atheromatous changes seen. No evidence for aneurysm. Genital organs: No significant abnormality. Other: No significant abnormality. IMPRESSION: 1. Uncomplicated acute diverticulitis of the sigmoid colon mild in degree. 2. Marked atrophy of the right kidney. 3. Splenomegaly.
[2024-01-01 13:50] LABS: Appearance,Urine Cloudy (Clear); Bacteria,Urine Rare /hpf; Bilirubin,Urine Negative (Negative); Blood,Urine Small (Negative); Color,Urine Dark Yellow; Glucose,Urine (UA) Negative (Negative); Ketones,Urine Negative (Negative); Leukocyte Esterase,Urine Large (Negative); Mucus,Urine Rare /hpf; Nitrite,Urine Negative (Negative); PH, Urine 5.5 (5.0-8.0); Protein,Urine 2+ (Negative); RBC,Urine 10 /hpf (0-5); Squamous Epithelial Cell,Urine 16 /hpf (0-4); WBC,Urine 31 /hpf (0-5)
[2024-01-01 14:34] LABS: ALT 79 U/L (4-34); AST 27 U/L (14-36); African American GFR (CKD) 80 (>60 ml/min/1.73 sqM); Albumin 3.7 g/dL (3.5-5.0); Alkaline Phosphatase 323 U/L (38-126); Anion Gap 6 mmol/L; Blood Urea Nitrogen 16 mg/dL (7-17); Calcium 8.2 mg/dL (8.4-10.2); Carbon Dioxide 26 mmol/L (22-30); Chloride 107 mmol/L (98-107); Glucose 94 mg/dL (74-99); Non-African American GFR(CKD) 69 (>60 ml/min/1.73 sqM); Potassium 3.8 mmol/L (3.5-5.1); Sodium 139 mmol/L (137-145); Total Bilirubin 0.8 mg/dL (0.2-1.3)
== END 2024-01-01 15:48 | disposition home or self-care (01) ==
LOC: EC 12:07
DX: K57.32 Diverticulitis of large intestine without perforation or abscess without bleeding (principal); N30.90 Cystitis, unspecified without hematuria; F17.200 Nicotine dependence, unspecified, uncomplicated
CPT/HCPCS: 36415; 80053; 85025; 81001; 74176; 96374; 96361; 99284; J1170

== ENCOUNTER 2024-04-05 18:38 | Emergency (ER) | payer OTHER ==
[2024-04-05] MEDS ORDERED: ACETAMINOPHEN TAB 500 MG TAB ONE (19:23)
[2024-04-05] MEDS ORDERED: KETOROLAC 15 MG/ML 1 ML VIAL ONE (19:23)
[2024-04-05] MEDS ORDERED: CIPROFLOXACIN HCL 500 MG TAB ONE (21:37)
== END 2024-04-05 21:45 | disposition home or self-care (01) ==
LOC: EC 18:38
DX: J18.9 Pneumonia, unspecified organism (principal)
CPT/HCPCS: 99283

== ENCOUNTER 2024-05-07 08:40 | Emergency (ER) | payer OTHER ==
[2024-05-07 08:45] VITALS: TEMP 97.7
[2024-05-07 08:55] LABS: Glucose,Whole Blood 106 mg/dL (70-110)
[2024-05-07] MEDS: methylPREDNISolone SOD SUCCI 125 MG/2 ML VIAL IV STA (09:02)
[2024-05-07] MEDS: SODIUM CHLORIDE 0.9% 1,000 ML IV STA (09:04)
--- NOTE | 2024-05-07 09:09 | ED ---
General Adult HPI - General Chief complaint: Neuro Symptoms/Deficit Stated complaint: neuro sympt Time Seen by Provider: 05/07/24 08:54 Source: patient, RN notes reviewed, old records reviewed Mode of arrival: ambulatory Limitations: no limitations - History of Present Illness Initial comments: Patient is a 43-year-old female who presents emergency department complaining of strokelike symptoms. Went to sleep at approximately 2 AM with no symptoms. Awoke at 6 with symptoms. She is complaining of weakness and numbness in her right leg. She is complaining of slurred speech. She is complaining of facial droop. She is complaining of weakness in her right upper extremity. Has a history of prior CVA/TIAs, hypertension, PE. She is not on blood thinners. Denies trauma. Presents for further evaluation at this time. Has no chest pain , nausea, vomiting, belly pain. Denies any blurry vision. Presents for further evaluation at this time. - Related Data Home Medications Medication Instructions Recorded Confirmed Albuterol Inhaler [Ventolin Hfa 1 - 2 puff INHALATION RT-Q6H PRN 07/27/22 05/06/23 Inhaler] Albuterol Nebulized [Ventolin 2.5 mg INHALATION RT-QID PRN 07/27/22 05/06/23 Nebulized] Aspirin EC [Ecotrin Low Dose] 81 mg PO DAILY 05/06/23 05/06/23 Furosemide [Lasix] 40 mg PO DAILY 05/06/23 05/06/23 Ipratropium Nebulized [Atrovent 0.5 mg INHALATION RT-QID PRN 05/06/23 05/06/23 Nebulized 0.2 MG/ML] Levothyroxine Sodium [Synthroid] 75 mcg PO DAILY 05/06/23 05/06/23 Loratadine [Claritin] 10 mg PO DAILY 05/06/23 05/06/23 NIFEdipine XL [Procardia Xl] 30 mg PO DAILY 05/06/23 05/06/23 carvediloL [Coreg] 25 mg PO BID 05/06/23 05/06/23 hydrALAZINE HCL [Apresoline] 50 mg PO TID 05/06/23 05/06/23 lisinopriL [Prinivil] 10 mg PO DAILY 05/06/23 05/06/23 Previous Rx's Medication Instructions Recorded Atorvastatin [Lipitor] 40 mg PO DAILY 30 Days #30 tab 07/30/22 amLODIPine [Norvasc] 10 mg PO DAILY 30 Days #30 tab 07/30/22 Amoxic-Pot Clav 875-125Mg 1 tab PO BID #10 tab 06/07/23 [Augmentin 875-125] Ibuprofen [Motrin] 800 mg PO Q8HR PRN #30 tab 06/07/23 Ondansetron Odt [Zofran Odt] 4 mg PO Q8HR PRN #10 tab 06/07/23 Amoxic-Pot Clav 875-125Mg 1 tab PO Q12HR #20 tab 01/01/24 [Augmentin 875-125] Ketorolac [Toradol] 10 mg PO Q8HR #15 tab 01/01/24 Allergies Allergy/AdvReac Type Severity Reaction Status Date / Time Iodinated Contrast Media Allergy Severe Anaphylaxis Verified 05/07/24 08:45 Review of Systems ROS Statement: Those systems with pertinent positive or pertinent negative responses have been documented in the HPI. Review of Systems: CONST: Denies fever EYES: Denies blurry vision ENT: Denies nasal congestion C/V: Denies Chest pain RESP: Denies shortness of breath GI: Denies abdominal pain : Denies dysuria SKIN: Denies rash. MSK: Denies joint pain. NEURO: Denies headache ROS Other: All systems not noted in ROS Statement are negative. Past Medical History Past Medical History: CVA/TIA, Deep Vein Thrombosis (DVT), GERD/Reflux, GI Bleed, Hypertension, Pneumonia, Pulmonary Embolus (PE), Renal Disease, Thyroid Disorder Additional Past Medical History / Comment(s): Pt states she was just treated with antibiotics for L lower leg cellulitis and stated it was gone morning of 11/04/19 then last night she noticed it was back and looked worse to her. Other hx: Bilateral PEs, DVT-pt thinks bilaterally, TIA, pt is currently being worked up for lupus, CKD stage II-R kidney atrophy, bronchitis, stomach ulcer, upper and lower GI bleeds, diverticular disease, palpitations, hypothyroid. History of Any Multi-Drug Resistant Organisms: None Reported Past Surgical History: Section, Cholecystectomy Additional Past Surgical History / Comment(s): 11/04/19 lap sharyn, EGD, colonoscopy, C-SEC X 2, sinus surgery, D&C Past Anesthesia/Blood Transfusion Reactions: No Reported Reaction Past Psychological History: Bipolar, Depression Smoking Status: Current every day smoker Past Alcohol Use History: None Reported Past Drug Use History: Marijuana - Past Family History Mother Family Medical History: No Reported History Additional Family Medical History / Comment(s): Mother is healthy Father Family Medical History: COPD, Coronary Artery Disease (CAD) Additional Family Medical History / Comment(s): Father was born with polio. He has had CABG General Exam - General Exam Comments Initial Comments: General: Appears in moderate distress HEAD: Normal with no signs of head trauma. EYES: PERRLA, EOMI, conjunctiva normal, no discharge. ENT: Hearing grossly intact, normal oropharynx. RESPIRATORY: Clear breath sounds bilaterally. No wheezes, rales, or rhonchi. C/V: Regular rate and rhythm. S1 and S2 auscultated, no edema, peripheral pulses 2+ and intact throughout hypertensive. ABD: Abd is soft, nontender, nondistended EXT: Normal range of motion, no obvious deformity SKIN: No rashes or lesions observed on exposed skin. NEURO: Alert and oriented x 4. GCS is 7. Patient receives 2 points for right sided facial partial paralysis, 1 point for right arm motor, 1 point for right leg motor, 1 point for ataxia in the right upper extremity, 1 point for sensation in the right lower extremity, 1 point for dysarthria. Last known well was 2am. Woke up with symptoms at 6 AM. Limitations: no limitations Course Vital Signs 05/07/24 05/07/24 05/07/24 08:42 09:19 09:30 Temperature 97.7 F Pulse Rate 53 L 90 79 Respiratory 22 18 26 H Rate Blood Pressure 209/138 242/146 O2 Sat by Pulse 97 98 98 Oximetry 05/07/24 09:38 Temperature Pulse Rate 70 Respiratory 26 H Rate Blood Pressure 205/140 O2 Sat by Pulse 97 Oximetry Medical Decision Making - Medical Decision Making Was pt. sent in by a medical professional or institution (, PA, GRADE RECORDER, urgent care, hospital, or halfway...) When possible be specific @ -No Did you speak to anyone other than the patient for history (EMS, parent, family, police, friend...)? What history was obtained from this source @ -No Did you review nursing and triage notes (agree or disagree)? Why? @ -I reviewed and agree with nursing and triage notes Were old charts reviewed (outside hosp., previous admission, EMS record, old EKG, old radiological studies, urgent care reports/EKG's, halfway records)? Report findings @ -Old charts reviewed which showed patient previously had CAT scans with contrast and therefore patient will be administered contrast allergy medications prior to obtaining CT imaging. Differential Diagnosis (chest pain, altered mental status, abdominal pain women, abdominal pain men, vaginal bleeding, weakness, fever, dyspnea, syncope, headache, dizziness, GI bleed, back pain, seizure, CVA, palpatations, mental health, musculoskeletal)? @ -Differential CVA Ischemic stroke, hemorrhagic stroke, brain tumor, atypical migraine, Wernicke's encephalopathy, seizure, multiple sclerosis, meningitis, encephalitis, hypoglycemia, Guillain-Thomas, electrolytes disturbance, myasthenia gravis.... This is not meant to be an all-inclusive list EKG interpreted by me (3pts min.). @ -As above X-rays interpreted by me (1pt min.). @ -None done CT interpreted by me (1pt min.). @ -Patient has a basal ganglia intraparenchymal hemorrhage on the left on CT brain without contrast.CT angiogram returned after patient was transferred showing the intracranial hemorrhage but no other obvious acute finding. U/S interpreted by me (1pt. min.). @ -None done What testing was considered but not performed or refused? (CT, X-rays, U/S, labs)? Why? @ -None What meds were considered but not given or refused? Why? @ -None Did you discuss the management of the patient with other professionals (professionals i.e. , PA, GRADE RECORDER, lab, RT, psych nurse, social media marketing specialist, motion picture set worker, teacher, production officer, supportive employment case manager)? Give summary @ -Spoke with neurointerventionist Dr. Mon who was in agreement with the plan for transfer. Was in agreement with plan for management. [facility] contacted and accepting physician is Dr. Hayes. Was smoking cessation discussed for >3mins.? @ -No Was critical care preformed (if so, how long)? @ -Yes, 31 minutes. Were there social determinants of health that impacted care today? How? (Homelessness, low income, unemployed, alcoholism, drug addiction, transportation, low edu. Level, literacy, decrease access to med. care, penitentiary, rehab)? @ -No Was there de-escalation of care discussed even if they declined (Discuss DNR or withdrawal of care, Hospice)? DNR status @ -No What co-morbidities impacted this encounter? (DM, HTN, Smoking, COPD, CAD, Cancer, CVA, ARF, Chemo, Hep., AIDS, mental health diagnosis, sleep apnea, morbid obesity)? @ -Prior CVA, hypertension Was patient admitted / discharged? Hospital course, mention meds given and route, prescriptions, significant lab abnormalities, going to OR and other pertinent info. @ -Based on patient's presentation and physical exam, presents emergency department for what appears to be a CVA. Last known well was 2 AM and patient woke up with symptoms. This places the patient outside of the window for tenecteplase. Risks outweigh benefits. Patient has an NIH of 7. She is not on blood thinners. Code stroke was activated. Patient was given contrast allergy medications after reviewing imaging showing that she previously did receive CTs with contrast. We will obtain CT imaging of the brain. I am awaiting contact with neuro interventionalists on-call. Code stroke activated at 0901. EKG shows no signs of acute ischemia. Accu-Chek within normal limits. I did speak with neuro interventionalists on-call Dr. Mon at the same time that I was contacted regarding what appears to be a intraparenchymal bleed in the MCA territory on the left on her CT brain. He was in agreement with plan for transfer to [facility]. Patient will be given a dose of labetalol as we wait for Cardene blood pressure drip. Goal blood pressures less than 140/110. Patient is not on blood thinners and therefore requires no reversal agents. Head of bed elevated to 30 degrees. We reached out to [facility] for transfer process at approximately 0918 patient was accepted to [facility] at 0924. Accepting physician is Dr. Hayes. Patient was updated and she was in agreement the plan. CT angiogram be returned unremarkable for any other obvious finding other than the intracranial intraparenchymal hemorrhage. Labs returned after the patient was transferred revealing a mild SARAH. No other obvious findings other than mild thrombocytopenia of 127 which is chronic for the patient. Patient's blood pressure was mildly improved at time of transfer to 205/140 following labetalol. Cardene was hung and patient was transferred with a Cardene drip in place and instructions for EMS to titrate with goal blood pressure of 140/110. Undiagnosed new problem with uncertain prognosis? @ -No Drug Therapy requiring intensive monitoring for toxicity (Heparin, Nitro, Insulin, Cardizem)? @ -No Were any procedures done? @ -No Diagnosis/symptom? @ -Intraparenchymal hemorrhage likely secondary to poorly controlled hypertension Acute, or Chronic, or Acute on Chronic? @ -Acute Uncomplicated (without systemic symptoms) or Complicated (systemic symptoms)? @ -Complicated Side effects of treatment? @ -None Exacerbation, Progression, or Severe Exacerbation] @ -No Poses a threat to life or bodily function? @ -Yes - Lab Data Result diagrams: 05/07/24 08:54 05/07/24 08:54 Lab Results 05/07/24 05/07/24 05/07/24 Range/Units 08:52 08:54 08:54 WBC 6.9 (3.8-10.6) k/uL RBC 5.91 H (3.80-5.40) m/uL Hgb 16.1 H (11.4-16.0) gm/dL Hct 50.5 H (34.0-46.0) % MCV 85.5 (80.0-100.0) fL MCH 27.3 (25.0-35.0) pg MCHC 31.9 (31.0-37.0) g/dL RDW 15.5 (11.5-15.5) % Plt Count 127 L (150-450) k/uL MPV 8.3 Neutrophils % 74 % Lymphocytes % 18 % Monocytes % 4 % Eosinophils % 2 % Basophils % 1 % Neutrophils # 5.1 (1.3-7.7) k/uL Lymphocytes # 1.3 (1.0-4.8) k/uL Monocytes # 0.3 (0-1.0) k/uL Eosinophils # 0.2 (0-0.7) k/uL Basophils # 0.1 (0-0.2) k/uL PT 9.9 L (10.0-12.5) sec INR 0.9 (<1.2) APTT 23.3 (22.0-30.0) sec Sodium (137-145) mmol/L Potassium (3.5-5.1) mmol/L Chloride (98-107) mmol/L Carbon Dioxide (22-30) mmol/L Anion Gap mmol/L BUN (7-17) mg/dL Creatinine (0.52-1.04) mg/dL Est GFR (CKD-EPI)AfAm (>60 ml/min/1.73 sqM) Est GFR (CKD-EPI)NonAf (>60 ml/min/1.73 sqM) Glucose (74-99) mg/dL POC Glucose (mg/dL) 106 (70-110) mg/dL POC Glu Body Team Member ID Albert De Leon Calcium (8.4-10.2) mg/dL Total Bilirubin (0.2-1.3) mg/dL AST (14-36) U/L ALT (4-34) U/L Alkaline Phosphatase (38-126) U/L Creatine Kinase (30-135) U/L Total Protein (6.3-8.2) g/dL Albumin (3.5-5.0) g/dL 05/07/24 Range/Units 08:54 WBC (3.8-10.6) k/uL RBC (3.80-5.40) m/uL Hgb (11.4-16.0) gm/dL Hct (34.0-46.0) % MCV (80.0-100.0) fL MCH (25.0-35.0) pg MCHC (31.0-37.0) g/dL RDW (11.5-15.5) % Plt Count (150-450) k/uL MPV Neutrophils % % Lymphocytes % % Monocytes % % Eosinophils % % Basophils % % Neutrophils # (1.3-7.7) k/uL Lymphocytes # (1.0-4.8) k/uL Monocytes # (0-1.0) k/uL Eosinophils # (0-0.7) k/uL Basophils # (0-0.2) k/uL PT (10.0-12.5) sec INR (<1.2) APTT (22.0-30.0) sec Sodium 138 (137-145) mmol/L Potassium 4.2 (3.5-5.1) mmol/L Chloride 105 (98-107) mmol/L Carbon Dioxide 25 (22-30) mmol/L Anion Gap 8 mmol/L BUN 19 H (7-17) mg/dL Creatinine 1.39 H (0.52-1.04) mg/dL Est GFR (CKD-EPI)AfAm 54 (>60 ml/min/1.73 sqM) Est GFR (CKD-EPI)NonAf 47 (>60 ml/min/1.73 sqM) Glucose 100 H (74-99) mg/dL POC Glucose (mg/dL) (70-110) mg/dL POC Glu Body Team Member ID Calcium 8.7 (8.4-10.2) mg/dL Total Bilirubin 0.9 (0.2-1.3) mg/dL AST 24 (14-36) U/L ALT 18 (4-34) U/L Alkaline Phosphatase 73 (38-126) U/L Creatine Kinase 95 (30-135) U/L Total Protein 7.5 (6.3-8.2) g/dL Albumin 4.4 (3.5-5.0) g/dL - EKG Data -: EKG Interpreted by Me EKG Comments: 12-lead Electrocardiogram Interpretation Note EKG was reviewed and interpreted by myself. 12-lead ECG performed at 0902 is interpreted by me as revealing normal sinus rhythm at a rate of 82 beats per minute. Freeman is normal. [place] interval is 142 ms, QRS duration is 90 ms, QTc is 431 ms.. There were no ST or T wave abnormalities to suggest myocardial ischemia or injury. R wave progression across the precordium was satisfactory. By my interpretation this EKG is non-diagnostic for acute ischemia. Compared with EKG from July 2022 with no significant change. Critical Care Time Critical Care Time: Yes Total Critical Care Time: 31 Disposition Clinical Impression: Intraparenchymal hemorrhage of brain, Hypertension Disposition: OTHER INSTITUTION NOT DEFINED Condition: Serious Referrals: Young Paulino MD [Primary Care Provider] - 1-2 days Time of Disposition: 09:40 - Out of Hospital Transfer - Req. Specs Out of Hospital Transfer - Requested Specifics: Other Emergency Center (Transferred to [facility] for escalation of care due to intraparenchymal hemorrhage.)
[2024-05-07] MEDS: diphenhydrAMINE 50 MG/ML 1 ML VIAL IVP STA (09:18)
[2024-05-07] MEDS: FAMOTIDINE 20 MG/2 ML VIAL IV STA (09:19)
--- NOTE | 2024-05-07 09:27 | CT ---
EXAMINATION TYPE: CODE STROKE: CT brain wo contr CT DLP: 1128 mGycm, Automated exposure control for dose reduction was used. DATE OF EXAM: 05/07/2024 9:19 AM COMPARISON: None. CLINICAL INDICATION: Female, 43 years old with history of Neuro deficit, acute, stroke suspected, Rt sided weakness, slurred speech TECHNIQUE: Brain: Axial CT images of the brain were obtained with coronal and sagittal reformats created and rev iewed. Contrast used: None. Oral contrast used: None. FINDINGS: Brain: Extra-axial spaces: No abnormal extra-axial fluid collections. Ventricular system: Within normal limits Cerebral parenchyma: Intraparenchymal hemorrhage involving the left basal ganglia with high density b lood products measuring 30 x 17 mm.. No evidence for midline shift at this time. No evidence for sign ificant mass effect. The oconnell-white junction is well differentiated. Cerebellum: Unremarkable. Mass effect: No evidence of midline shift. Intracranial vasculature: unremarkable Soft tissues: Normal. Calvarium/osseous structures: No depressed skull fracture. Paranasal sinuses and mastoid air cells: Mild scattered paranasal sinus disease. Visualized orbits: Orbital contents are intact. IMPRESSION: Acute intracranial hemorrhage involving the left basal ganglia. Findings communicated to ordering rosenda palomares on 05/07/2024 9:[address] Damián Washburn. [facility], , 05/07/2024 9:24 AM
[2024-05-07 09:28] LABS: Basophils # (A) 0.1 k/uL (0-0.2); Basophils % (A) 1 %; Eosinophils # (A) 0.2 k/uL (0-0.7); Eosinophils % (A) 2 %; HCT 50.5 % (34.0-46.0); HGB 16.1 gm/dL (11.4-16.0); Lymphocytes # (A) 1.3 k/uL (1.0-4.8); Lymphocytes % (A) 18 %; MCH 27.3 pg (25.0-35.0); MCHC 31.9 g/dL (31.0-37.0); MCV 85.5 fL (80.0-100.0); Mean Platelet Volume 8.3; Monocytes # (A) 0.3 k/uL (0-1.0); Monocytes % (A) 4 %; Neutrophils # (A) 5.1 k/uL (1.3-7.7); Neutrophils % (A) 74 %; Platelet Count 127 k/uL (150-450); RBC 5.91 m/uL (3.80-5.40); RDW 15.5 % (11.5-15.5); WBC 6.9 k/uL (3.8-10.6)
[2024-05-07] MEDS: LABETALOL 5 MG/ML VIAL MDV IVP STA ×2 (09:30→09:38)
[2024-05-07] MEDS: niCARdipine 20 MG in SODIUM CHLORIDE 0.9% 192 ML IV SCH (09:34)
[2024-05-07 09:35] LABS: ALT 18 U/L (4-34); AST 24 U/L (14-36); African American GFR (CKD) 54 (>60 ml/min/1.73 sqM); Albumin 4.4 g/dL (3.5-5.0); Alkaline Phosphatase 73 U/L (38-126); Anion Gap 8 mmol/L; Blood Urea Nitrogen 19 mg/dL (7-17); Calcium 8.7 mg/dL (8.4-10.2); Carbon Dioxide 25 mmol/L (22-30); Chloride 105 mmol/L (98-107); Creatine Kinase 95 U/L (30-135); Glucose 100 mg/dL (74-99); Non-African American GFR(CKD) 47 (>60 ml/min/1.73 sqM); Potassium 4.2 mmol/L (3.5-5.1); Sodium 138 mmol/L (137-145); Total Bilirubin 0.9 mg/dL (0.2-1.3); Total Protein 7.5 g/dL (6.3-8.2)
[2024-05-07 09:38] VITALS: RESP 26
[2024-05-07 09:40] LABS: INR 0.9 (<1.2); Partial Thromboplastin Time 23.3 sec (22.0-30.0); Prothrombin Time 9.9 sec (10.0-12.5)
[2024-05-07 09:41] VITALS: BP 205/140; PULSE 70
--- NOTE | 2024-05-07 10:37 | CT ---
EXAMINATION TYPE: CT angio head neck CT DLP: 722.5 mGycm, Automated exposure control for dose reduction was used. DATE OF EXAM: 05/07/2024 9:35 AM COMPARISON: . CLINICAL INDICATION: Female, 43 years old with history of Neuro deficit, acute, stroke suspected; PHH , Rt sided weakness, slurred speech TECHNIQUE: Axially acquired helical CT angiogram of the head and neck was obtained with contrast. Axi al images are supplemented with 3D reconstructions and MIP images which were post-processed at an in dependent workstation. NASCET criteria used. Contrast used:65 ml mL of Isovue 370 with IV Contrast, Oral contrast used: None. FINDINGS: CTA HEAD: Similar intracranial hemorrhage measuring 30 x 17 mm in the left basal ganglia. The visualized portions of the internal carotid arteries, middle cerebral arteries, anterior cerebral arteries, and posterior cerebral arteries are patent. The basilar and vertebral arteries are patent. CTA NECK: Right Carotid System: The common carotid artery and external carotid artery are patent. The carotid bifurcation demonstrate s no evidence of hemodynamically significant stenosis. The remaining portions of the internal carotid artery demonstrate normal size without significant narrowing. Left Carotid System: The common carotid artery and external carotid artery are patent. The carotid bifurcation demonstrate s no evidence of hemodynamically significant stenosis. The remaining portions of the internal carotid artery demonstrate normal size without significant narrowing. Vertebral arteries are patent without evidence hemodynamically significant stenosis. There is a three-vessel aortic arch. The origins of the great vessels are patent. No evidence of hemo dynamically significant stenosis. IMPRESSION: Motion limited exam. 1. Similar intracranial hemorrhage in the left basal ganglia. 2. No evidence of dissection of the cervical internal carotid arteries or vertebral arteries or any evidence of significant stenosis at the carotid bifurcations. 3. No evidence of intracranial high-grade stenosis or intracranial aneurysm. [facility], , 05/07/2024 10:35 AM
== END 2024-05-07 10:04 | disposition other institution (70) ==
LOC: EC 08:40
CPT/HCPCS: 36415; 70450; 70496; 70498; 80053; 82550; 85025; 85610; 85730; 93005; 96365; 96375; 96376; 99291

== ENCOUNTER 2025-01-08 18:16 | Emergency (ER) | payer OTHER ==
--- NOTE | 2025-01-08 18:42 | ED ---
General Adult HPI <Shelley Parraah Kia - Last Filed: 01/09/25 05:59> - General Source: patient Mode of arrival: ambulatory Limitations: no limitations - History of Present Illness Onset/Timin -: hour(s) Location: abdomen Radiation: non-radiation Quality: aching Consistency: intermittent Improves with: none Worsens with: none Associated Symptoms: denies other symptoms Treatments Prior to Arrival: none <Alonzo Ledesma - Last Filed: 01/26/25 03:47> - General Chief complaint: Abdominal Pain Stated complaint: Abd Pain Time Seen by Provider: 01/08/25 18:36 - History of Present Illness Initial comments: This patient is a 44-year-old woman who states that last night she had onset of left lower quadrant abdominal pain. She states that it was mild to moderate intensity, then this evening it became more severe. She states that since it had worsened and has become a little better but still remains there. The pain is a little worse when she presses on that area of her abdomen, she has not noted relieving factors. She has not had any accompanying symptoms, no fever or chills. No chest pain. No change in urination or bowel movements. No nausea or vomiting. (Alonzo Ledesma) - Related Data Home Medications Medication Instructions Recorded Confirmed Albuterol Inhaler [Ventolin Hfa 2 puff INHALATION RT-Q6H PRN 07/27/22 01/10/25 Inhaler] Levothyroxine Sodium [Synthroid] 75 mcg PO DAILY 05/06/23 01/10/25 NIFEdipine XL [Procardia XL] 30 mg PO BID 05/06/23 01/10/25 carvediloL [Coreg] 25 mg PO BID 05/06/23 01/10/25 Atorvastatin [Lipitor] 10 mg PO DAILY 01/10/25 01/10/25 Valsartan 160 mg PO DAILY 01/10/25 01/10/25 Previous Rx's Medication Instructions Recorded Furosemide [Lasix] 40 mg PO DAILY #30 tab 01/12/25 predniSONE 10 mg PO DAILY #20 tab 01/12/25 Allergies Allergy/AdvReac Type Severity Reaction Status Date / Time Iodinated Contrast Media Allergy Severe Anaphylaxis Verified 01/10/25 14:42 Review of Systems ROS Other: All systems not noted in ROS Statement are negative. <Renae Parra - Last Filed: 01/09/25 05:59> ROS Other: All systems not noted in ROS Statement are negative. Constitutional: Denies: fever, chills Respiratory: Denies: cough, dyspnea Cardiovascular: Denies: chest pain, palpitations, edema Gastrointestinal: Reports: abdominal pain. Denies: nausea, vomiting, diarrhea, constipation, melena, hematochezia Genitourinary: Denies: dysuria, hematuria Musculoskeletal: Denies: back pain Skin: Denies: rash Neurological: Denies: headache, weakness <BaltazarAlonzo - Last Filed: 01/26/25 03:47> ROS Statement: Those systems with pertinent positive or pertinent negative responses have been documented in the HPI. Past Medical History Past Medical History: CVA/TIA, Deep Vein Thrombosis (DVT), GERD/Reflux, GI Bleed, Hypertension, Pneumonia, Pulmonary Embolus (PE), Renal Disease, Thyroid Disorder Additional Past Medical History / Comment(s): Pt states she was just treated with antibiotics for L lower leg cellulitis and stated it was gone morning of 11/04/19 then last night she noticed it was back and looked worse to her. Other hx: Bilateral PEs, DVT-pt thinks bilaterally, TIA, pt is currently being worked up for lupus, CKD stage II-R kidney atrophy, bronchitis, stomach ulcer, upper and lower GI bleeds, diverticular disease, palpitations, hypothyroid. History of Any Multi-Drug Resistant Organisms: None Reported Past Surgical History: Section, Cholecystectomy Additional Past Surgical History / Comment(s): 11/04/19 lap sharyn, EGD, colonoscopy, C-SEC X 2, sinus surgery, D&C Past Anesthesia/Blood Transfusion Reactions: No Reported Reaction Past Psychological History: Bipolar, Depression Smoking Status: Current every day smoker Past Alcohol Use History: None Reported Past Drug Use History: Marijuana - Past Family History Mother Family Medical History: No Reported History Additional Family Medical History / Comment(s): Mother is healthy Father Family Medical History: COPD, Coronary Artery Disease (CAD) Additional Family Medical History / Comment(s): Father was born with polio. He has had CABG <BaltazarAlonzo - Last Filed: 01/26/25 03:47> General Exam Limitations: no limitations General appearance: alert, in no apparent distress Head exam: Present: atraumatic, normocephalic Eye exam: Present: normal appearance. Absent: scleral icterus, conjunctival injection Neck exam: Present: normal inspection Respiratory exam: Present: normal lung sounds bilaterally. Absent: respiratory distress, wheezes, rales, rhonchi, stridor, accessory muscle use Cardiovascular Exam: Present: regular rate, normal rhythm, normal heart sounds. Absent: systolic murmur, diastolic murmur, rubs, gallop GI/Abdominal exam: Present: soft, tenderness. Absent: distended, guarding, rebound, rigid, mass, pulsatile mass, hernia Extremities exam: Present: normal inspection, normal capillary refill. Absent: pedal edema, calf tenderness Back exam: Present: normal inspection Neurological exam: Present: alert Skin exam: Present: warm, dry, intact, normal color. Absent: rash <Alonzo Ledesma - Last Filed: 01/26/25 03:47> Course Vital Signs 01/08/25 01/08/25 01/09/25 18:23 19:20 02:11 Temperature 98.8 F 98 F Pulse Rate 83 80 98 Respiratory 17 17 18 Rate Blood Pressure 193/117 171/103 181/97 O2 Sat by Pulse 99 97 Oximetry Medical Decision Making - Lab Data Result diagrams: 01/08/25 18:41 01/08/25 18:41 <Renae Parra - Last Filed: 01/09/25 05:59> - Lab Data Result diagrams: 01/08/25 18:41 01/08/25 18:41 <Alonzo Ledesma - Last Filed: 01/26/25 03:47> - Medical Decision Making Was patient admitted / discharged? Hospital course, mention meds given and route, prescriptions, significant lab abnormalities, going to OR and other pertinent info. @ -Patient signed out to me on read. Ultrasound demonstrates left ovarian cyst. Multiple fluid collections in the uterus. Patient reports to a history of ablation. I discussed these results with the patient. She will be treated for urinary tract infection at this time. Patient was given a dose of antibiotics and discharged home on antibiotics. She will follow-up with [facility] for ultrasound to manage her cyst as well as cystic uterus. Return for any new or worsening symptoms. Patient agreeable to plan she was discharged in stable condition Undiagnosed new problem with uncertain prognosis? @ -No Drug Therapy requiring intensive monitoring for toxicity (Heparin, Nitro, Insulin, Cardizem)? @ -No Were any procedures done? @ -No Diagnosis/symptom? @ -Acute abdominal pain, acute UTI, left ovarian cyst, cystic intrauterine structures Acute, or Chronic, or Acute on Chronic? @ -Acute Uncomplicated (without systemic symptoms) or Complicated (systemic symptoms)? @ -Complicated Side effects of treatment? @ -No Exacerbation, Progression, or Severe Exacerbation? @ -No Poses a threat to life or bodily function? How? (Chest pain, [place], [place], pneumonia, PE, COPD, DKA, ARF, appy, cholecystitis, CVA, Diverticulitis, Homicidal, Suicidal, threat to staff... and all critical care pts) @ -No (Renae Parra) The patient had CT scan of the abdomen and pelvis that I interpreted as negative for free air, obstruction, or other acute surgical condition Was pt. sent in by a medical professional or institution (, PA, [facility], urgent care, hospital, or group home...) When possible be specific @ -[No] Did you speak to anyone other than the patient for history (EMS, parent, family, police, friend...)? What history was obtained from this source @ -[No] Did you review nursing and triage notes (agree or disagree)? Why? @ -[I reviewed and agree with nursing and triage notes] Were old charts reviewed (outside hosp., previous admission, EMS record, old EKG, old radiological studies, urgent care reports/EKG's, group home records)? Report findings @ -[No old charts were reviewed] Differential Diagnosis (chest pain, altered mental status, abdominal pain women, abdominal pain men, vaginal bleeding, weakness, fever, dyspnea, syncope, headache, dizziness, GI bleed, back pain, seizure, CVA, palpatations, mental health, musculoskeletal)? @ -[Differential Abdominal Pain Women: Appendicitis, Cholecystitis, diverticulosis, ischemic bowel, pancreatitis, hepatitis, UTI, gastroenteritis, AAA, incarcerated hernia, bowel obstruction, constipation, inflammatory bowel, hepatitis, peptic ulcer disease, splenic inf arction, perforated viscus, vulvitis, ovarian torsion, PID, kidney stone, placenta abruption, this is not meant to be an all-inclusive list EKG interpreted by me (3pts min.). @ -[As above] X-rays interpreted by me (1pt min.). @ -[None done] CT interpreted by me (1pt min.). @ -[None done] U/S interpreted by me (1pt. min.). @ -[None done] What testing was considered but not performed or refused? (CT, X-rays, U/S, labs)? Why? @ -[None] What meds were considered but not given or refused? Why? @ -[None] Did you discuss the management of the patient with other professionals (professionals i.e. DrReuben, PA, [facility], lab, RT, psych nurse, geriatric social work professor, pre kindergarten teacher, teacher, traffic police officer, case aide)? Give summary @ -[No] Was smoking cessation discussed for >3mins.? @ -[No] Was critical care preformed (if so, how long)? @ -[No] Were there social determinants of health that impacted care today? How? (Homelessness, low income, unemployed, alcoholism, drug addiction, transportation, low edu. Level, literacy, decrease access to med. care, shelter, rehab)? @ -[No] Was there de-escalation of care discussed even if they declined (Discuss DNR or withdrawal of care, Hospice)? DNR status @ -[No] What co-morbidities impacted this encounter? (DM, HTN, Smoking, COPD, CAD, Cancer, CVA, ARF, Chemo, Hep., AIDS, mental health diagnosis, sleep apnea, morbid obesity)? @ -[None] Was patient admitted / discharged? Hospital course, mention meds given and route, prescriptions, significant lab abnormalities, going to OR and other pertinent info. @ -[Patient is 44-year-old woman with lower abdominal pain, mainly left, who is pending results of pelvic ultrasound at the time of shift change and is signed out to the oncoming physician. (Alonzo Ledesma) - Lab Data Lab Results 01/08/25 01/08/25 01/08/25 Range/Units 18:41 18:41 18:41 WBC 9.69 (4.50-10.00) 10*3/uL RBC 5.46 H (4.10-5.20) 10*6/uL Hgb 15.5 H (12.0-15.0) g/dL Hct 46.3 (37.2-46.3) % MCV 84.8 (80.0-97.0) fL MCH 28.4 (27.0-32.0) pg MCHC 33.5 (32.0-37.0) g/dL Plt Count 140 (140-440) 10*3/uL MPV 10.1 (9.5-12.2) fL Immature Gran % (Auto) 0.3 % Neutrophils % 70.5 % Lymphocytes % 19.4 % Monocytes % 6.5 % Eosinophils % 2.7 % Basophils % 0.6 % Immature Gran # 0.03 (0.00-0.04) 10*3/uL Neutrophils # 6.83 (1.80-7.70) 10*3/uL Lymphocytes # 1.88 (0.90-5.00) 10*3/uL Monocytes # 0.63 (0.20-1.00) 10*3/uL Eosinophils # 0.26 (0.04-0.35) 10*3/uL Basophils # 0.06 (0.00-0.10) 10*3/uL Immature Plt Fraction 2.9 (1.1-6.1) % Sodium 137 (137-145) mmol/L Potassium 4.3 (3.5-5.1) mmol/L Chloride 105 (98-107) mmol/L Carbon Dioxide 26 (22-30) mmol/L Anion Gap 6 mmol/L BUN 14 (7-17) mg/dL Creatinine 1.03 (0.52-1.04) mg/dL Est GFR (CKD-EPI)AfAm 78 (>60 ml/min/1.73 sqM) Est GFR (CKD-EPI)NonAf 67 (>60 ml/min/1.73 sqM) Glucose 106 H (74-99) mg/dL Calcium 8.5 (8.4-10.2) mg/dL Total Bilirubin 0.9 (0.2-1.3) mg/dL AST 21 (14-36) U/L ALT 19 (4-34) U/L Alkaline Phosphatase 68 (38-126) U/L C-Reactive Protein <0.5 (<1.0) mg/dL Total Protein 5.7 L (6.3-8.2) g/dL Albumin 3.3 L (3.5-5.0) g/dL Amylase <30 L (30-110) U/L Lipase 79 (23-300) U/L Urine Color Urine Appearance (Clear) Urine pH (5.0-8.0) Ur Specific [place] (1.001-1.035) Urine Protein (Negative) Urine Glucose (UA) (Negative) Urine Ketones (Negative) Urine Blood (Negative) Urine Nitrite (Negative) Urine Bilirubin (Negative) Urine Urobilinogen (<2.0) mg/dL Ur Leukocyte Esterase (Negative) Urine RBC (0-5) /hpf Urine WBC (0-5) /hpf Urine WBC Clumps (None) /hpf Ur Squamous Epith Cells (0-4) /hpf Urine HCG, Qual Not Detected (Not Detectd) 01/08/25 Range/Units 18:42 WBC (4.50-10.00) 10*3/uL RBC (4.10-5.20) 10*6/uL Hgb (12.0-15.0) g/dL Hct (37.2-46.3) % MCV (80.0-97.0) fL MCH (27.0-32.0) pg MCHC (32.0-37.0) g/dL Plt Count (140-440) 10*3/uL MPV (9.5-12.2) fL Immature Gran % (Auto) % Neutrophils % % Lymphocytes % % Monocytes % % Eosinophils % % Basophils % % Immature Gran # (0.00-0.04) 10*3/uL Neutrophils # (1.80-7.70) 10*3/uL Lymphocytes # (0.90-5.00) 10*3/uL Monocytes # (0.20-1.00) 10*3/uL Eosinophils # (0.04-0.35) 10*3/uL Basophils # (0.00-0.10) 10*3/uL Immature Plt Fraction (1.1-6.1) % Sodium (137-145) mmol/L Potassium (3.5-5.1) mmol/L Chloride (98-107) mmol/L Carbon Dioxide (22-30) mmol/L Anion Gap mmol/L BUN (7-17) mg/dL Creatinine (0.52-1.04) mg/dL Est GFR (CKD-EPI)AfAm (>60 ml/min/1.73 sqM) Est GFR (CKD-EPI)NonAf (>60 ml/min/1.73 sqM) Glucose (74-99) mg/dL Calcium (8.4-10.2) mg/dL Total Bilirubin (0.2-1.3) mg/dL AST (14-36) U/L ALT (4-34) U/L Alkaline Phosphatase (38-126) U/L C-Reactive Protein (<1.0) mg/dL Total Protein (6.3-8.2) g/dL Albumin (3.5-5.0) g/dL Amylase (30-110) U/L Lipase (23-300) U/L Urine Color Colorless Urine Appearance Cloudy H (Clear) Urine pH 6.5 (5.0-8.0) Ur Specific [place] 1.013 (1.001-1.035) Urine Protein Negative (Negative) Urine Glucose (UA) Trace H (Negative) Urine Ketones Negative (Negative) Urine Blood Negative (Negative) Urine Nitrite Negative (Negative) Urine Bilirubin Negative (Negative) Urine Urobilinogen <2.0 (<2.0) mg/dL Ur Leukocyte Esterase Large H (Negative) Urine RBC 19 H (0-5) /hpf Urine WBC >182 H (0-5) /hpf Urine WBC Clumps Occasional H (None) /hpf Ur Squamous Epith Cells 4 (0-4) /hpf Urine HCG, Qual (Not Detectd) Disposition Time of Disposition: 02:08 <Renae Parra - Last Filed: 01/09/25 05:59> Is patient prescribed a controlled substance at d/c from ED?: No <Alonzo Ledesma - Last Filed: 01/26/25 03:47> Clinical Impression: Urinary tract infection, Hypertension, Left ovarian cyst Disposition: HOME SELF-CARE Condition: Good Instructions (If sedation given, give patient instructions): Urinary Tract Infection in Women (ED), Chronic Hypertension (DC) Additional Instructions: follow up with the obgyn within 3 months. They will repeat an ultrasound of your uterus to watch your cyst size. Have a repeat urine sample completed after you finish your antibiotics to make sure your infection has cleared from your urine. Return for any new or worsening symptoms. Referrals: Aarti Dominguez MD [Primary Care Provider] - 1-2 days
[2025-01-08] MEDS: MORPHINE SULFATE 4 MG/ML SYRINGE IV STA ×2 (19:04→21:45)
[2025-01-08 19:05] LABS: Basophils # (A) 0.06 10*3/uL (0.00-0.10); Basophils % (A) 0.6 %; Eosinophils # (A) 0.26 10*3/uL (0.04-0.35); Eosinophils % (A) 2.7 %; HCT 46.3 % (37.2-46.3); HGB 15.5 g/dL (12.0-15.0); Immature Platelet Fraction 2.9 % (1.1-6.1); Lymphocytes # (A) 1.88 10*3/uL (0.90-5.00); Lymphocytes % (A) 19.4 %; MCH 28.4 pg (27.0-32.0); MCHC 33.5 g/dL (32.0-37.0); MCV 84.8 fL (80.0-97.0); Mean Platelet Volume 10.1 fL (9.5-12.2); Monocytes # (A) 0.63 10*3/uL (0.20-1.00); Monocytes % (A) 6.5 %; Neutrophils # (A) 6.83 10*3/uL (1.80-7.70); Neutrophils % (A) 70.5 %; Platelet Count 140 10*3/uL (140-440); RBC 5.46 10*6/uL (4.10-5.20); RDW 13.9 % (11.5-14.5); WBC 9.69 10*3/uL (4.50-10.00)
[2025-01-08] MEDS: SODIUM CHLORIDE 0.9% 500 ML 500 ML IV STA (19:06)
[2025-01-08 19:18] LABS: ALT 19 U/L (4-34); AST 21 U/L (14-36); African American GFR (CKD) 78 (>60 ml/min/1.73 sqM); Albumin 3.3 g/dL (3.5-5.0); Alkaline Phosphatase 68 U/L (38-126); Amylase <30 U/L (30-110); Anion Gap 6 mmol/L; Blood Urea Nitrogen 14 mg/dL (7-17); C Reactive Protein <0.5 mg/dL (<1.0); Calcium 8.5 mg/dL (8.4-10.2); Carbon Dioxide 26 mmol/L (22-30); Chloride 105 mmol/L (98-107); Glucose 106 mg/dL (74-99); Lipase 79 U/L (23-300); Non-African American GFR(CKD) 67 (>60 ml/min/1.73 sqM); Potassium 4.3 mmol/L (3.5-5.1); Sodium 137 mmol/L (137-145); Total Bilirubin 0.9 mg/dL (0.2-1.3); Total Protein 5.7 g/dL (6.3-8.2)
[2025-01-08 19:19] LABS: Appearance,Urine Cloudy (Clear); Bilirubin,Urine Negative (Negative); Blood,Urine Negative (Negative); Color,Urine Colorless; Glucose,Urine (UA) Trace (Negative); Ketones,Urine Negative (Negative); Leukocyte Esterase,Urine Large (Negative); Nitrite,Urine Negative (Negative); PH, Urine 6.5 (5.0-8.0); Protein,Urine Negative (Negative); RBC,Urine 19 /hpf (0-5); Specific Gravity,Urine 1.013 (1.001-1.035); Squamous Epithelial Cell,Urine 4 /hpf (0-4); Urobilinogen,Urine <2.0 mg/dL (<2.0); WBC,Urine >182 /hpf (0-5)
[2025-01-08] MEDS: hydrALAZINE HCL 20 MG/ML 1 ML VIAL IVP STA (21:47)
--- NOTE | 2025-01-08 22:28 | CT ---
EXAMINATION TYPE: CT abdomen pelvis wo con DATE OF EXAM: 01/08/2025 COMPARISON: CT abdomen and pelvis January 01, 2024 CLINICAL INDICATION: Female, 44 years old with history of l flank pain, Pt arrives in today for le ft mid/lower abdominal pain. pt denies any nausea, vomiting, diarrhea or blood in stool., TECHNIQUE: CT scan of the abdomen and pelvis is performed , patient injected with mL of ., (none if empty) Oral contrast used: (none if empty) CT DLP: 1026.7 mGycm, Automated exposure control for dose reduction was used. FINDINGS: LUNG BASES: Peripheral focal right lower lung consolidation or scarring is redemonstrated. Mild linea r scarring right lung base. LIVER/GB: Cholecystectomy clips are redemonstrated. PANCREAS: No significant abnormality is seen. SPLEEN: Splenomegaly at 14.8 cm coronal image 59. ADRENALS: No significant abnormality is seen. KIDNEYS: Marked volume loss and cortical thinning right kidney redemonstrated. No hydronephrosis or o bstructing left ureter calculus. BOWEL: There are a few slightly prominent fluid-filled small bowel loops in the left upper to midabdo men. No definitive greater than 3.0 cm dilatation. Fecal material seen in nondistended colon. Surgica l clips at base of cecum. UTERUS/ADNEXA: Anteverted uterus. Probable left-sided intramural fibroid. Asymmetric prominence left ovary measuring 4.0 cm on axial image 112. This can be better evaluated and characterized with pelvic ultrasound if desired. LYMPH NODES: Prominent but subcentimeter retroperitoneal lymph nodes throughout the abdomen are redem onstrated. OSSEOUS STRUCTURES: No significant abnormality is seen. OTHER: No significant additional abnormality is seen. IMPRESSION: Overall nonspecific but favor nonobstructive bowel gas pattern. No left-sided hydronephro sis. No significant acute finding clearly seen to account for patient's clinical symptoms. [facility], , 01/08/2025 10:25 PM
--- NOTE | 2025-01-09 01:26 | US ---
EXAM: US Pelvis Transvaginal and US Duplex Arterial/Venous of the Pelvis, Complete CLINICAL HISTORY: Left lower quadrant Pain TECHNIQUE: Real-time transvaginal pelvic ultrasound with image documentation. Transvaginal imaging was used for better evaluation of the endometrium and adnexa. Real-time duplex ultrasound scan of the arterial and venous flow of the pelvis with color Doppler flow and spectral waveform analysis. COMPARISON: CT abdomen and pelvis 01/08/2025 FINDINGS: Uterus/cervix: There are two fluid collections in the uterus measuring 2.2 and 0.6 cm. A third hypoechoic 1.1 cm lesion is present. The uterus measures 7.2 x 4.6 x 6.0 cm. Endometrial stripe is normal measuring 1.0 cm. Right ovary: The right ovary is not visualized due to bowel gas. Left ovary: Left ovary measures 3.8 x 3.3 x 4.1 cm. There is a 4.1 cm simple appearing left ovarian cyst. No torsion of the left ovary. Free fluid: A moderate amount of free fluid in the pelvis is nonspecific. Bladder: Empty bladder which cannot be evaluated with this probe. IMPRESSION: 1. There is a 4.1 cm simple appearing left ovarian cyst. No torsion of the left ovary. 2. There are two fluid collections in the uterus measuring 2.2 and 0.6 cm. A third hypoechoic 1.1 cm lesion is present. These are indeterminate. Recommend further evaluation with pelvic MRI with and without contrast on a nonemergent basis. 3. A moderate amount of free fluid in the pelvis is nonspecific. 4. The right ovary is not visualized due to bowel gas.
[2025-01-09 02:12] VITALS: BP 181/97; PULSE 98; RESP 18; TEMP 98
== END 2025-01-09 02:19 | disposition home or self-care (01) ==
LOC: EC 18:16
DX: N39.0 Urinary tract infection, site not specified (principal); I10 Essential (primary) hypertension; N83.202 Unspecified ovarian cyst, left side; F17.200 Nicotine dependence, unspecified, uncomplicated; Z86.73 Personal history of transient ischemic attack (TIA), and cerebral infarction without residual deficits; Z91.041 Radiographic dye allergy status
CPT/HCPCS: 99284; 36415; 80053; 82150; 83690; 85025; 86140; 81001; 81025; 93976; 76830; 74176; 96365; 96375; 96376; 96361; J2270; J0360; J0696